=== PATIENT | female | born 1985 | race Caucasian/White ===

== ENCOUNTER 2021-04-11 08:59 | Emergency (ER) | payer OTHER, SELFPAY ==
[2021-04-11 09:05] VITALS: BP 157/101; PULSE 95; RESP 18; TEMP 36.7; O2SAT 100
[2021-04-11 09:16] LABS: Basophils Percent Auto 0.4 % (0.2-1.2); Eosinophils Absolute Auto 0.1 K/mm3 (0-0.3); Hematocrit 41.4 % (37.0-47.0); Hemoglobin 13.2 g/dL (12.0-15.0); Immature Granulocyte Absolute 0.03 K/mm3 (0.00-0.031); Immature Granulocyte Percent A 0.3 % (0-0.5); Lymphocytes Absolute Auto 2.79 K/mm3 (0.9-3.2); Mean Corpuscular HGB Conc 31.9 g/dl (32-36); Mean Corpuscular Hemoglobin 26.7 pg (26-34); Mean Corpuscular Volume 83.6 fl (80-100); Monocytes Absolute Auto 0.6 K/mm3 (0.1-0.6); Monocytes Percent Auto 5.3 % (2.6-8.5); Neutrophils Absolute Auto 7.6 K/mm3 (1.3-6.7); Platelet Count Result 260 k/mm3 (150-375); Red Blood Count 4.95 M/mm3 (4.2-5.4); Red Cell Distribution Width 12.7 % (11.5-14.5); White Blood Count 11.2 K/mm3 (4.5-10.0)
[2021-04-11] MEDS: SODIUM CHLORIDE 0.9% IV 1,000 ML 999 ML IV CONT (09:36)
[2021-04-11] MEDS: FAMOTIDINE 20 MG/2 ML VIAL IV PUSH (09:36)
--- NOTE | 2021-04-11 09:36 | ED.GENADULT ---
HPI - General Adult General Chief complaint: Abdominal Pain Stated complaint: abd pain/vomiting/diarrhea Time Seen by Provider: 04/11/21 09:03 Source: patient and RN notes reviewed Mode of arrival: ambulatory Limitations: no limitations History of Present Illness HPI narrative: Patient is a 35-year-old female who presents to emergency department for evaluation of epigastric abdominal pain with reflux patient notes she began taking Zithromax over the weekend after being diagnosed with an ear infection at urgent care believes that the pain and discomfort began after starting the Zithromax she is also using drops and notes that her left ear pain has really resolved patient denies fever or other URI symptoms patient does note some nausea and loose stools Related Data Allergies Allergy/AdvReac Type Severity Reaction Status Date / Time amoxicillin Allergy Intermediate HIVES Verified 03/06/17 22:22 Review of Systems Review of Systems: All systems reviewed & are unremarkable except as noted in HPI and below PMFSH Social History Social History (Updated 04/11/21 @ 09:40 by Jerel Sky PA-C) Smoking status: Never smoker Exam Narrative: Exam Narrative: GENERAL: Well-appearing, well-nourished, and in no acute distress. HEAD: Normocephalic, atraumatic. EYES: PERRLA and EOMI. ENT: Nares clear, no rhinorrhea or epistaxis. Mucous membranes moist. CHEST: Clear to auscultation. No respiratory distress. No wheezes rales or rhonchi HEART: Regular rate and rhythm. No murmur heard. Normal peripheral pulses. ABDOMEN: Soft, epigastric tenderness to palpation, nondistended. EXTREMITIES: Normal range of motion. No edema. SKIN: Warm, dry, no rash. NEURO: No focal deficits. Alert and oriented x3. Cranial nerves II through XII grossly intact PSYCH: Normal mood and affect. Course Course Emergency Course: Patient presented with GI upset was evaluated in the emergency department had improvement with interventions to include GI cocktail will be discharged home at this time with plan follow-up with gastroenterology and primary care also provided with reasons to return patient agrees with this plan and is felt appropriate for outpatient reevaluation Vital Signs Vital signs: Vital Signs Temperature 98.0 F 04/11/21 09:05 Pulse Rate 95 04/11/21 09:05 Respiratory Rate 18 04/11/21 09:05 Blood Pressure 157/101 H 04/11/21 09:05 Pulse Oximetry 100 04/11/21 09:05 Temperature 98.0 F 04/11/21 09:05 Pulse Rate 95 04/11/21 09:05 Respiratory Rate 18 04/11/21 09:05 Blood Pressure 157/101 H 04/11/21 09:05 Pulse Oximetry 100 04/11/21 09:05 Medical Decision Making MDM Narrative Medical decision making narrative: Patient presented with GI upset evaluated the emergency department no high risk changes in the evaluation had improvement with medications will be discharged with outpatient follow-up felt appropriate for outpatient reevaluation Vital Signs Vital Signs: Vital Signs Temperature 98.0 F 04/11/21 09:05 Pulse Rate 95 04/11/21 09:05 Respiratory Rate 18 04/11/21 09:05 Blood Pressure 157/101 H 04/11/21 09:05 Pulse Oximetry 100 04/11/21 09:05 Temperature 98.0 F 04/11/21 09:05 Pulse Rate 95 04/11/21 09:05 Respiratory Rate 18 04/11/21 09:05 Blood Pressure 157/101 H 04/11/21 09:05 Pulse Oximetry 100 04/11/21 09:05 Lab Data Result diagrams: 04/11/21 09:10 04/11/21 09:10 Labs: Lab Results 04/11/21 04/11/21 04/11/21 Range/Units 09:10 09:10 09:32 WBC 11.2 H (4.5-10.0) K/mm3 RBC 4.95 (4.2-5.4) M/mm3 Hgb 13.2 (12.0-15.0) g/dL Hct 41.4 (37.0-47.0) % MCV 83.6 (80-100) fl MCH 26.7 (26-34) pg MCHC 31.9 L (32-36) g/dl RDW 12.7 (11.5-14.5) % Plt Count 260 (150-375) k/mm3 MPV 10.0 (7.4-10.4) fl Immature Gran % (Auto) 0.3 (0-0.5) % Neut % (Auto) 68.0 (45.5-73.1) % Lymph % (Auto) 25.0 (18.3-
[2021-04-11 09:42] LABS: Alanine Aminotransferase 44 U/L (4-35); Alkaline Phosphatase 90 U/L (38-126); Anion Gap 14 mmol/L (8-16); Aspartate Amino Transferase 46 U/L (14-36); Bilirubin,Total 0.5 mg/dL (0.2-1.3); Blood Urea Nitrogen 14 mg/dL (7-17); Calcium 10.6 mg/dL (8.4-10.2); Carbon Dioxide 21 mmol/L (22-30); Chloride 105 mmol/L (98-107); Estimated CRCL calculation 104 ml/min; Estimated Glomerular Filt Rate > 60; Glucose 112 mg/dL (65-105); Lipase 74 U/L (23-300); Potassium 4.5 mmol/L (3.4-5.0); Sodium 140 mmol/L (137-145)
[2021-04-11 09:58] LABS: Add Urine Microscopic? YES; Appearance Urine Cloudy (Clear); Bilirubin Urine Negative (Negative); Blood Urine Negative (Negative); Color Urine Yellow (Yellow); Glucose Urine UA Negative (Negative); Ketones Urine Negative (Negative); Leukocyte Esterase Ur Trace LEU/UL (Negative); Mucus Urine Rare /lpf; Nitrate Urine Negative (Negative); Protein Urine 1+ mg/dL (Negative); RBC Urine 0-2 /hpf (0-2); Specific Grav Ur 1.023 (1.001-1.035); Squamous Epithelial Cell Urine Many /hpf (Few); Urobilinogen Urine Negative mg/dL (<2.0); WBC Urine 0-3 /hpf
[2021-04-11] MEDS: ONDANSETRON INJ 4 MG/2 ML VIAL IV PUSH (10:52)
[2021-04-11] MEDS: MAG HYDROX/AL HYDROX/SIMETH 30 ML UDC PO (12:08)
[2021-04-11] MEDS: LIDOCAINE HCL 2% VISC SOLN 15 ML UDC 20 ML PO (12:08)
[2021-04-11 12:45] VITALS: BP 155/78; PULSE 87; RESP 18; O2SAT 100
== END 2021-04-11 12:48 | disposition home or self-care (01) ==
PROVIDERS: Emergency Provider Emergency Medicine; PCP Internal Medicine
DX: R10.13 Epigastric pain (principal)
CPT/HCPCS: 36415; 80053; 81001; 81025; 83690; 85025; 96361; 96374; 96375; 99284; A9270; J2405; J7030

== ENCOUNTER 2021-05-03 14:14 | Outpatient (CLI) | payer OTHER, SELFPAY ==
--- NOTE | ~2021-05-03 | US_ITS ---
US abdomen complete DATE: 05/03/2021 14:43 INDICATION: Epigastric abdominal pain TECHNIQUE: Real-time imaging and Doppler analysis of the abdomen COMPARISON: None FINDINGS: No hepatic space-occupying mass lesion is evident. Normal hepatopedal portal venous flow di rection. No gallstones or gallbladder wall thickening or pericholecystic fluid collection. Negative s onographic Guerrero's sign. The common bile duct measures 4 mm, normal. No renal mass lesion or hydrone phrosis. Normal splenic size. Normal caliber of the abdominal aorta. The inferior vena cava is unremarkable. IMPRESSION: Negative Reviewed, dictated and finalized at [facility]. Reviewed, dictated and finalized at [facility]. IMPRESSION: Negative
== END 2021-05-03 14:15 ==
PROVIDERS: PCP Internal Medicine; Visit Provider Nurse Practitioner Family
DX: R10.13 Epigastric pain (principal)
CPT/HCPCS: 76700

== ENCOUNTER 2022-03-05 03:44 | Emergency (ER) | payer OTHER, SELFPAY ==
--- NOTE | ~2022-03-05 | XR_ITS ---
EXAMINATION: XR chest 2V DATE: 03/05/2022 04:47 INDICATION: Cough. TECHNIQUE: Frontal and lateral views of the chest were obtained. COMPARISON: None. FINDINGS: There is a 2.0 cm mass overlying the anterior mediastinum on the lateral view. No pneumonia , pleural effusion, or pneumothorax. The heart size is normal. IMPRESSION: 1. 2.0 cm mass overlying the anterior mediastinum on the lateral view. The differential diagnosis inc ludes thymoma, lymphoma, and germ cell tumor. Noncontrast chest CT is recommended. Reviewed, dictated and finalized at location [facility]. IMPRESSION: 1. 2.0 cm mass overlying the anterior mediastinum on the lateral view. The diff erential diagnosis includes thymoma, lymphoma, and germ cell tumor. Noncontrast chest CT is recommended.
[2022-03-05 03:49] VITALS: BP 152/91; PULSE 91; RESP 20; TEMP 36.4; O2SAT 100
[2022-03-05 04:01] VITALS: O2SAT 98
--- NOTE | 2022-03-05 04:06 | ED.SOB ---
HPI - SOB/Dyspnea General Chief Complaint: Shortness of Breath/Dyspnea Stated Complaint: SOB, cough Time Seen by Provider: 03/05/22 03:54 Source: patient History of Present Illness HPI Narrative: Patient presents with not feeling well. For symptoms feel well for approximately 1 week she is worse over the past 48 hours so she came the ER for further evaluation. She reports cough shortness of breath and chest tightness over this time. She denies any fevers nausea or vomiting. She reports sore throat and congestion as well. She reports a family member in close contact did test positive for COVID. Related Data Home Medications Medication Instructions Recorded Confirmed B-complex with vitamin C 1 tablet PO DAILY 04/19/21 04/19/21 lamotrigine 50 mg tablet,extended 50 mg PO BID 04/19/21 04/19/21 release 24 hr metformin 1,000 mg tablet 1,000 mg PO BID 04/19/21 04/19/21 Allergies Allergy/AdvReac Type Severity Reaction Status Date / Time amoxicillin Allergy Intermediate HIVES Verified 03/06/17 22:22 Review of Systems Review of Systems: CONSTITUTIONAL: Denies fever, chills, or sweats. EYES: Denies visual changes, redness, or discharge. ENT: Reports congestion and sore throat. CARDIOVASCULAR: Denies chest pain, palpitations, or edema. RESPIRATORY: Cough and shortness of breath GASTROINTESTINAL: Denies abdominal pain, nausea, vomiting, or diarrhea. GENITOURINARY: Denies dysuria or hematuria. SKIN: Denies rash or itching. MUSCULOSKELETAL: Denies back pain, joint pain, or myalgia. NEUROLOGIC: Denies headache, numbness, dizziness, or weakness. PSYCHIATRIC: Denies anxiety or depression. All systems reviewed & are unremarkable except as noted in HPI and below PMFSH Past Medical History Medical History Diarrhea Elevated liver enzymes Epigastric pain Social History Social History Smoking status: Never smoker Alcohol intake: current Drinks per week: 1 Substance use: never Exam Narrative: GENERAL: Well-appearing, well-nourished, and in no acute distress. HEAD: Normocephalic, atraumatic. EYES: PERRLA and EOMI. ENT: Nares clear, no rhinorrhea or epistaxis. Mucous membranes moist. Mild erythema of the posterior pharynx no exudates NECK: Supple. No masses. No JVD CHEST: Clear to auscultation. No respiratory distress. No wheezes rales or rhonchi HEART: Regular rate and rhythm. No murmur heard. Normal peripheral pulses. ABDOMEN: Soft, nontender, nondistended, normal active bowel sounds. EXTREMITIES: Normal range of motion. No edema. SKIN: Warm, dry, no rash. NEURO: No focal deficits. Alert and oriented x3. PSYCH: Normal mood and affect. Course Reevaluation(s) Reevaluation #1: Patient reports feeling improved results and plan reviewed with patient. Patient is comfortable outpatient plan. Date: 03/05/22 Time: 05:44 Vital Signs Vital signs: Vital Signs Temperature 36.4 C L 03/05/22 03:49 Pulse Rate 91 03/05/22 03:49 Respiratory Rate 20 03/05/22 03:49 Blood Pressure 152/91 H 03/05/22 03:49 Pulse Oximetry 100 03/05/22 03:49 Oxygen Delivery Room Air 03/05/22 03:49 Temperature 36.4 C L 03/05/22 03:49 Pulse Rate 87 03/05/22 06:22 Respiratory Rate 23 H 03/05/22 06:22 Blood Pressure 133/87 03/05/22 06:22 Pulse Oximetry 98 03/05/22 06:22 Oxygen Delivery Room Air 03/05/22 04:01 MDM - SOB/Dyspnea MDM Narrative Medical decision making narrative: H&P as above, vss, pt looks clinically well, exam reassuring, labs clinically unremarkable, img without acute process, additional labs/img considered, symptomatic relief available as needed, on reevaluation pt continues to looks clinically well. Suspect viral process, dns bacterial pneumonia, severe sepsis, severe dehydration, hypoxia. plan to tx/monitor as op w/ pcm f/u findings/plan discussed with pt, pt agree/comfortable w
[2022-03-05] MEDS: SODIUM CHLORIDE 0.9% IV 1,000 ML 999 ML IV CONT ×2 (04:22→04:47)
[2022-03-05] MEDS: ACETAMINOPHEN 500 MG TABLET 1000 MG PO (04:22)
[2022-03-05 04:29] LABS: Basophils Percent Auto 0.3 % (0.2-1.2); Eosinophils Absolute Auto 0.2 K/mm3 (0-0.3); Eosinophils Percent Auto 1.9 % (0-4.4); Hematocrit 35.6 % (37.0-47.0); Hemoglobin 11.2 g/dL (12.0-15.0); Immature Granulocyte Absolute 0.06 K/mm3 (0.00-0.031); Immature Granulocyte Percent A 0.5 % (0-0.5); Lymphocytes Absolute Auto 2.29 K/mm3 (0.9-3.2); Mean Corpuscular HGB Conc 31.5 g/dl (32-36); Mean Corpuscular Hemoglobin 25.6 pg (26-34); Mean Corpuscular Volume 81.3 fl (80-100); Mean Platelet Volume 10.2 fl (7.4-10.4); Monocytes Absolute Auto 0.8 K/mm3 (0.1-0.6); Monocytes Percent Auto 6.7 % (2.6-8.5); Neutrophils Absolute Auto 8.1 K/mm3 (1.3-6.7); Neutrophils Percent Auto 70.6 % (45.5-73.1); Platelet Count Result 276 k/mm3 (150-375); Red Blood Count 4.38 M/mm3 (4.2-5.4); Red Cell Distribution Width 13.4 % (11.5-14.5); White Blood Count 11.5 K/mm3 (4.5-10.0)
[2022-03-05 04:41] LABS: Alanine Aminotransferase 68 U/L (6-35); Albumin Level 4.3 g/dL (3.5-5.1); Alkaline Phosphatase 125 U/L (38-126); Anion Gap 8 mmol/L (8-16); Aspartate Amino Transferase 61 U/L (14-36); Bilirubin,Total 0.2 mg/dL (0.2-1.3); Blood Urea Nitrogen 12 mg/dL (7-17); Calcium 8.7 mg/dL (8.4-10.2); Carbon Dioxide 25 mmol/L (22-30); Chloride 108 mmol/L (98-107); Estimated CRCL calculation 116 ml/min; Estimated Glomerular Filt Rate > 60; Glucose 171 mg/dL (65-110); Potassium 3.7 mmol/L (3.4-5.0); Sodium 141 mmol/L (137-145)
[2022-03-05 04:46] LABS: SARS-CoV-2 RNA PCR Negative
[2022-03-05 05:05] LABS: Influenza A QL RT-PCR Negative (Negative); Influenza B QL RT-PCR Negative (Negative)
[2022-03-05 05:29] VITALS: PULSE 94; RESP 18; O2SAT 98
[2022-03-05 06:22] VITALS: BP 133/87; PULSE 87; RESP 23; O2SAT 98
== END 2022-03-05 06:21 | disposition home or self-care (01) ==
PROVIDERS: Emergency Provider Emergency Medicine; PCP Internal Medicine
DX: B34.9 Viral infection, unspecified (principal); R05.9 Cough, unspecified; R09.81 Nasal congestion; Z20.822 Contact with and (suspected) exposure to COVID-19
CPT/HCPCS: 36415; 71046; 80053; 85025; 87502; 96360; 99283; 99284; A9270; C9803; J7030; U0003; U0005

== ENCOUNTER 2022-03-21 11:40 | Outpatient (CLI) | payer OTHER, SELFPAY ==
--- NOTE | ~2022-03-21 | CT_ITS ---
EXAMINATION: CT diagnostic chest wo con DATE: 03/21/2022 12:06 INDICATION: Mediastinal mass TECHNIQUE: Computed tomography (CT) of the chest was performed without intravenous contrast. The dose -length product (DLP) was 399.32 mGy-cm. Automated exposure control and iterative reconstruction tech nique were employed. COMPARISON: Chest radiograph dated 03/05/2022 FINDINGS: There is a 1.4 cm nodule in the medial aspect of the left upper lobe which demonstrates a s mall locule of peripheral gas. There is a partially calcified enlarged right hilar lymph node. There is a 3 mm nodule of the right lower lobe on image 81. The heart size is normal. No pleural effusion o r pneumothorax. The lungs are free of focal airspace opacities. IMPRESSION: 1. 1.4 cm nodule in the medial aspect of the right upper lobe corresponding to the chest radiographic finding in question. If the patient has no known malignancy, this likely represents a benign finding . Follow-up CT in three months is recommended. Reviewed, dictated and finalized at location A. IMPRESSION: 1. 1.4 cm nodule in the medial aspect of the right upper lobe corresponding to the chest radiographic finding in question. If the patient has no known maligna ncy, this likely represents a benign finding. Follow-up CT in three months is r ecommended.
== END 2022-03-21 11:41 ==
PROVIDERS: PCP Internal Medicine; Visit Provider Internal Medicine
DX: R91.8 Other nonspecific abnormal finding of lung field (principal)
CPT/HCPCS: 71250

== ENCOUNTER 2022-04-19 13:36 | Outpatient (CLI) | payer OTHER, SELFPAY ==
--- NOTE | ~2022-04-19 | PE_ITS ---
EXAMINATION: PET skull to mid thigh DATE: 04/19/2022 15:29 INDICATION: Solitary nodule of lung TECHNIQUE: Blood glucose level was 96 mg/dL. 10.448 mCi of 18-fluorodeoxyglucose (18-FDG) was adminis tered i.v. Low dose computed tomography (CT) images were acquired from the base of the brain to the p roximal thighs for attenuation correction and anatomic localization. Positron emission tomography (PE T) images were acquired in the same distribution beginning 53 minutes after injection. Images includi ng fused PET/CT images were reconstructed in axial, coronal, and sagittal planes. Automated exposure control technique was employed. The dose-length product was 777.59mGy-cm. COMPARISON: Chest CT dated FINDINGS: Head/neck: There is symmetric increased activity in the nasal and oral cavities, palatine tonsils, parotid gland s, lingual glands, laryngeal muscles and ocular muscles without CT correlate, likely physiologic. No pathologically enlarged cervical lymphadenopathy or suspicious foci of increased FDG uptake in the vi sualized head or neck. Chest: 1.7 x 1.4 cm nodule in the anterior segment of the right upper lobe which is without evident FDG acti vity. Respiratory motion in the lungs with mild atelectasis at the basilar segments of the bilateral lower lobes. No other suspicious pulmonary nodules, pneumonia, pulmonary edema or pleural effusion. H eart size is normal. No pericardial effusion. Couple small right hilar lymph nodes without evident FD G uptake. There are subtle calcification one of the lymph nodes seen on the prior CT consistent with old granulomatous disease which is difficult to appreciate on the current study due to mild motion ar tifact. No pathologically enlarged or FDG avid thoracic lymphadenopathy. Thoracic aorta is normal in caliber. Abdomen/pelvis/proximal thighs: Physiologic renal accumulation and excretion of FDG activity in the kidneys, bladder and along portio ns of ureters. Diffuse hepatic steatosis with normal degree and heterogenous pattern of increased upt stuart throughout the liver without radiologic correlate or dominant FDG avid lesion. The gallbladder, p ancreas, spleen and bilateral adrenal glands are normal. Mild uptake scattered throughout the bowels without radiologic correlate, also likely physiologic. Normal appendix. Cystic lesions at the bilater al adnexa, the larger and more concerning with suggestion of some internal septations as on the right measuring up to 5.6 x 4.1 cm. There is also complex cystic lesion versus multiple nabothian cysts in the region of the cervix/lower uterine segment. No other abnormal foci of increased FDG uptake or pa thologically enlarged lymphadenopathy in the abdomen, pelvis or proximal thighs. Musculoskeletal: No suspicious lytic, blastic or FDG avid bone lesions. IMPRESSION: 1. No FDG uptake associated with a 2.0 x 1.4 cm right upper lobe nodule which favors a benign etiolog y most likely old granulomatous disease. Would recommend 12 month follow-up noncontrast chest CT. 2. Complex septated 5.6 cm right adnexal cyst which raises some concern for neoplasm. Additional comp ge cystic lesion versus multiple nabothian cysts in the region of the cervix/lower uterine segment. Would recommend further evaluation with pelvic ultrasound. Reviewed, dictated and finalized at location [facility]. IMPRESSION: 1. No FDG uptake associated with a 2.0 x 1.4 cm right upper lobe nodule which f avors a benign etiology most likely old granulomatous disease. Would recommend 12 month follow-up noncontrast chest CT. 2. Complex septated 5.6 cm right adnexal cyst which raises some concern for paco plasm. Additional complex cystic lesion versus multiple nabothian cysts in the region of the cervix/lower uterine segment
[2022-04-24 09:12] LABS: Glucose Point of Care 96 mg/dl (65-105)
== END 2022-04-19 13:37 | disposition home or self-care (01) ==
PROVIDERS: PCP Internal Medicine; Visit Provider Internal Medicine Pulmonary Disease
DX: R91.1 Solitary pulmonary nodule (principal); R93.89 Abnormal findings on diagnostic imaging of other specified body structures
CPT/HCPCS: 78815; A9552

== ENCOUNTER 2022-07-13 14:05 | Outpatient (CLI) | payer OTHER, SELFPAY ==
[2022-07-13 14:46] LABS: Anion Gap 13 mmol/L (8-16); Blood Urea Nitrogen 16 mg/dL (7-17); Calcium 9.5 mg/dL (8.4-10.2); Carbon Dioxide 21 mmol/L (22-30); Chloride 105 mmol/L (98-107); Estimated Glomerular Filt Rate > 60; Glucose 130 mg/dL (65-110); Potassium 4.2 mmol/L (3.4-5.0); Sodium 139 mmol/L (137-145)
--- NOTE | 2022-07-13 15:06 | ECG_ITS ---
Measurements Intervals [place] Rate: 70 P: 8 WA: 160 QRS: -11 QRSD: 99 T: -5 QT: 375 QTc: 406 Interpretive Statements SINUS RHYTHM VOLTAGE CRITERIA FOR LVH , BORDERLINE ECG NO PREVIOUS ECG AVAILABLE FOR COMPARISON Electronically Signed On 07-13-2022 15:49:49 CDT by Isak Mauro M.D.
== END 2022-07-13 14:06 | disposition home or self-care (01) ==
LOC: ANHLAB 14:08
PROVIDERS: PCP Internal Medicine; Referring Provider Obstetrics & Gynecology; Visit Provider Anesthesiology
DX: Z01.818 Encounter for other preprocedural examination (principal); N83.209 Unspecified ovarian cyst, unspecified side; E11.9 Type 2 diabetes mellitus without complications
CPT/HCPCS: 36415; 80048; 86850; 86900; 86901; 93005

== ENCOUNTER 2022-07-18 00:16 | Day surgery (SDC) | payer OTHER, SELFPAY ==
[2022-07-11 12:27] VITALS: BMI 31.9
--- NOTE | 2022-07-11 12:34 | PC.NURSE ---
Report to the Outpatient Waiting Room, entrance under the green pavilion located off [facility], at time 8:30 on date 07/18/22. OR Time: 10:30. Time changes happen often and if your time is changed the preop area will call you the afternoon before. - You and your visitor will be asked to self-screen and do not enter if you have any COVID symptoms. - We encourage only one visitor and NO visitors under age 16 are allowed at this time. Your visitor will receive communication by the phone number that is given day of service. - The patient visitor is requested to social distance or may leave the building when not with patient due to restrictions. - A mask is required within the hospital. Patients may have clear liquids (water, carbonated beverages, clear teas, apple juice) until 3 hours prior to surgery (7:30) with a maximum of 20 ounces. - No food from midnight until time of surgery Take the following medications with a SIP of water the morning of surgery: ABILIFY, LAMOTRIGINE Medications to discontinue per physician: VITAMINS/SUPPLEMENTS Date to take last dose: 07/14/22 Please no make-up, nail wolof, hairspray, perfume, deodorant, or body powder the day of surgery. No jewelry (including any body piercings) or valuables the day of surgery, leave them at home. Please take a shower or bath the night before, or the morning of, surgery with an antibacterial soap. Wear comfortable, loose fitting clothing. - Jewelry must be removed prior to entering the operating room. Rings and piercings that are not removed may be cut off. - The hospital will not accept responsibility for valuables. - Please leave all valuables, including medications, at home the day of surgery. If you are going home after surgery, a licensed customer service driver must drive you home. - NO public transportation without another adult. - We recommend that an adult stay with you for 24 hours following discharge. - We also recommend that you do not drive, make important decision, drink alcoholic beverages, or take any drugs that were not prescribed by your health care provider for at least 24 hours after your discharge time. Follow any additional instructions given to you from your surgeon. If you or anyone in your household have experienced Covid symptoms in the past week, please notify your surgeon or the nurse liaison at the phone number below for possible testing. Telephone instructions given to PT - DEBORAH BRADFORD and asked if any additional questions and then verbalized understanding. Patient advised to call surgeon office or pre surgery nurse liaison [phone] if any additional questions.
[2022-07-18] VITALS (9 sets, daily range): BP systolic 114–137; BP diastolic 76–87; PULSE 68–100; RESP 12–20; TEMP 37.2–37.3; O2SAT 12–100
--- NOTE | 2022-07-18 07:54 | P.PNAN_ITS ---
Anes - Initial Pre Proc Eval Procedure: Operation Date: 07/18/22 11:30 Proposed Procedures p Robotic Assisted Laparoscopic Right Ovarian Cystectomy - Celeste Zhong MD Date/Time: 07/18/22 07:54 Surgeon: Celeste Zhong MD Pre Op Diagnosis: right ovary cyst Patient Data Age: 36 Gender: F Height: 1.73 m Weight: 95.25 kg Allergies Allergy/AdvReac Type Severity Reaction Status Date / Time amoxicillin Allergy Intermediate HIVES Verified 07/11/22 12:25 Home Medications Medication Instructions Recorded Confirmed Type B-complex with vitamin C 1 tablet PO DAILY 04/19/21 07/11/22 History metformin 1,000 mg tablet 1,000 mg PO BID 04/19/21 07/11/22 History omeprazole 40 mg capsule,delayed See Rx Instructions .Route 01/03/22 07/11/22 Rx release .COMPLEX #90 caps aripiprazole 20 mg tablet 20 mg PO HS 07/11/22 07/11/22 History cholecalciferol (vitamin D3) 125 125 mcg PO DAILY 07/11/22 07/11/22 History mcg (5,000 unit) tablet (Vitamin D3) lamotrigine 100 mg tablet 150 mg PO BID 07/11/22 07/11/22 History Patient hx anesthesia problems: none Family hx anesthesia problems: none Results Review: All pre-operative results and documents have been reviewed as part of the pre- operative evaluation. [facility] Past Medical History Medical History (Updated 07/18/22 @ 07:57 by Jonnie Vega DO) Anxiety Bipolar disorder Depression Diabetes type 2, controlled Diarrhea Elevated liver enzymes Epigastric pain GERD (gastroesophageal reflux disease) Social History Social History Smoking status: Never smoker Alcohol intake: current Drinks per week: 1 Alcohol use details: RARE Substance use: current Substance use type: marijuana Other substance usage details: GUMMMIES Living arrangements: with family Spiritual care concerns: No Anes - Eval Final PreProcedure Day of Procedure 07/18/22 07:54 Patient weight: obese Heart: regular rate and rhythm Lungs: clear to auscultation Airway: Mallampati scale class II Neurological: alert and oriented Last oral intake: >/= 8 hours ASA classification: III Emergent: no Anesthetic plan: proceed Anesthesia type and monitoring: general ETT and standard monitoring Results Review: All pre-operative results and documents have been reviewed as part of the pre- operative evaluation. Informed Consent: The patient's anesthetic plan and its attendant risks and benefits were discussed with the patient/family/POA. Questions were solicited and answers provided to the satisfaction of the patient/family/POA.
[2022-07-18 09:57] LABS: Glucose Point of Care 156 mg/dl (65-105)
[2022-07-18] MEDS: LACTATED RINGERS 1,000 ML 30 ML IV CONT ×2 (10:00→13:04)
[2022-07-18] MEDS: KETOROLAC 15 MG/ML VIAL (*BKC) IV PUSH (10:05)
[2022-07-18] MEDS: ACETAMINOPHEN 500 MG TABLET 1000 MG PO (10:05)
--- NOTE | 2022-07-18 11:00 | WPDHPUPDATE1 ---
History and Physical Update Update Date/Time: 07/18/22 11:00 History and Physical has been reviewed, including an updated exam of the patient. There are NO changes in the patient's condition. Risks, benefits, and alternatives have been discussed and questions answered. Patient agrees to proceed with procedure.
--- NOTE | 2022-07-18 13:04 | P.OP_ITS ---
Procedure Note - Detailed Date of Procedure 07/18/22 Pre-op Diagnosis right ovary cyst Post-op Diagnosis Same Procedure Performed Robotic assisted right ovarian cystectomy. Surgeon Celeste Zhong MD Anesthesia General Indications pelvic pain Findings normal-appearing uterus tubes.. Enlarged multi cystic ovary Of the right. Small surface tissues on the surface of the left ovary. Ovaries were enlarged. Description of Procedure This patient was taken to the operating room. She was prepped and draped in the dorsal lithotomy position after induction of general anesthesia. A 8 mm skin incision was made in the left upper quadrant the abdomen. a 5 mm Visiport trocar was inserted into abdominal cavity and pneumoperitoneum was achieved. A 8 mm supraumbilical incision was made and a 8 mm trocar was inser israel into the intrauterine cavity under direct visualization of the scope. an 8 mm incision was made in the right upper quadrant of the abdomen and an 8 mm robotic trocar was placed the inter uterine cavity under direct visualization the scope. An 11 mm trocar was inserted in the right upper quadrant of the abdomen under direct visualization with the scope after an incision was made there as well. The robot was docked. Electronic orientation of the robot was performed. right ovarian cystectomy was performed using sharp and blunt dissection and cautery. This was done in [address]. A large segment of the ovary had to be resected in the midportion of the ovary. The ovaries were large. The tissue removed during the cystectomy and resection of mass was placed in endobag and taken out the left upper quadrant assist port trocar. Some surface small thin cyst were cauterized on the surface of the left ovary. The 11 mm skin incision was closed with a Nabeel-Jcarlos Endoclose In 0 Vicryl. The skin was closed with subacute or Dermabond. The patient was taken to recovery room. She was stable condition. Sponge lap and needle counts were correct x2. Estimated Blood Loss -25.0 Urine Output -125.0 Drains Yes Packing No Pathology Yes Complications No immediate complications Condition Stable Disposition Floor
[2022-07-18 13:10] LABS: Glucose Point of Care 222 mg/dl (65-105)
--- NOTE | 2022-07-18 13:16 | SUR.PHASEI ---
Notified Dr. Vega of patient's blood glucose being 222. No new orders at this time.
[2022-07-18] MEDS: fentaNYL CITRATE INJ (*CRX) 100 MCG/2 ML VIAL 25 MCG IV PUSH ×4 (13:30→13:46)
[2022-07-18] MEDS: ONDANSETRON INJ 4 MG/2 ML VIAL IV PUSH (13:49)
[2022-07-18] MEDS: oxyCODONE HCL (*CRX) 5 MG TAB IR PO (14:06)
--- NOTE | 2022-08-08 22:36 | PM.IMHP ---
H&P: HPI History of Present Illness Date/Time: 08/08/22 22:36 Chief Complaint: pelvic pain, ovarian cyst Narrative: 36-year-old female with ovarian cyst and pelvic pain. We agreed to perform laparoscopic ovarian cystectomy. She understands risks, benefits, and alternatives. She stands that injuries may occur the told in hospitalization, more surgery, and severe illness. Review of Systems Review of Systems: All systems reviewed & are unremarkable except as noted in HPI and below Constitutional: Constitutional: Denies chills, Denies fatigue, Denies fever(s) and Denies weakness Eyes: Eyes: Denies blurry vision, Denies change in vision, Denies loss of peripheral vision, Denies loss of vision, Denies other visual disturbances and Denies eye pain ENT: Denies vertigo, Denies dizziness, Denies hearing loss, Denies mouth pain, Denies nasal obstruction, Denies neck mass and Denies neck pain Cardiovascular: Cardiovascular: Denies chest pain, Denies diaphoresis, Denies syncope, Denies leg edema and Denies dyspnea Respiratory: Respiratory: Denies chest congestion, Denies cough, Denies hemoptysis, Denies dyspnea and Denies wheezing Gastrointestinal: Gastrointestinal: Denies abdominal pain, Denies constipation, Denies diarrhea, Denies nausea and Denies vomiting Genitourinary: Genitourinary: Denies hematuria, Denies change in libido, Denies nocturia, Denies genital lesions, Denies flank pain and Denies urinary urgency Musculoskeletal: Musculoskeletal: Denies abnormal gait, Denies back pain, Denies myalgias, Denies arthralgias, Denies joint swelling, Denies muscle weakness and Denies neck pain Integumentary/Breasts: Skin/Breast: Denies swelling, Denies breast pain, Denies breast mass, Denies dry skin, Denies nipple discharge, Denies unusual bruising and Denies jaundice Neurologic: Denies Neuro-related abnormal movements, Denies Abnormal speech present, Denies abnormal gait, Denies behavioral changes, Denies confusion, Denies vertigo, Denies dizziness, Denies syncope, Denies loss of vision, Denies memory loss, Denies convulsions and Denies weakness Psychiatric: Psychiatric: Denies abnormal sleep pattern, Denies behavioral changes, Denies change in libido, Denies confusion, Denies depression, Denies anhedonia and Denies memory loss Endocrine: Endocrine: Reports no additional endocrine complaints, Denies change in libido and Denies fatigue Hematologic/Lymphatic: Hematologic/Lymphatic: Reports no additional hematologic/lymphatic complaints Allergic/Immunologic: Allergic/Immunologic: Reports no additional allergic/immunologic complaints and Denies wheezing PMFSH Past Medical History Medical History (Updated 08/08/22 @ 22:38 by Celeste Zhong MD) Anxiety Bipolar disorder Depression Diabetes type 2, controlled Diarrhea Elevated liver enzymes Epigastric pain GERD (gastroesophageal reflux disease) Social History Social History Smoking status: Never smoker Alcohol intake: current Drinks per week: 1 Alcohol use details: RARE Substance use: current Substance use type: other Other substance usage details: THC gummies Lack of Transportation: No Lack of Food: Never True Current Housing: I Have Housing Concerned About Future Housing: No Difficulty Paying Gas/Electric Bills: No Difficulty Paying for Meds: No Currently Unemployed: No Education: Don't Know Difficulty w/ Childcare or Family Care: No Spiritual care concerns: No Meds Home Medications and Allergies Home Medications Medication Instructions Recorded Confirmed Type B-complex with vitamin C 1 tablet PO HS 04/19/21 07/22/22 History metformin 1,000 mg tablet 1,000 mg PO BID 04/19/21 07/22/22 History aripiprazole 20 mg tablet 20 mg PO HS 07/11/22 07/22/22 History cholecalciferol (vitamin D3) 125 125 mcg PO DAILY 07/11/22 07/22/22 History mcg (5,000 unit) tablet (Vitamin D3) lamo
== END 2022-07-18 15:05 | disposition home or self-care (01) ==
PROVIDERS: PCP Internal Medicine; Visit Provider Obstetrics & Gynecology
PROC: 8E0W4CZ Robotic Assisted Procedure of Trunk Region, Percutaneous Endoscopic Approach (ICD-10-PCS; CPT 49320; principal; 2022-07-18 11:30)
DX: C56.1 Malignant neoplasm of right ovary (principal); E11.9 Type 2 diabetes mellitus without complications; K21.9 Gastro-esophageal reflux disease without esophagitis; F41.9 Anxiety disorder, unspecified; F31.9 Bipolar disorder, unspecified; Z79.84 Long term (current) use of oral hypoglycemic drugs; F12.90 Cannabis use, unspecified, uncomplicated; E66.9 Obesity, unspecified; Z68.31 Body mass index [BMI] 31.0-31.9, adult
CPT/HCPCS: 58662; S2900; 36415; 80048; 82948; 86850; 86900; 86901; 87086; 88305; 88342; 93005; A9270; J1100; J1170; J1885; J2250; J2405; J2704; J2710; J3010; J7030; J7120

== ENCOUNTER 2022-07-22 09:06 | Inpatient (IN) | payer OTHER, SELFPAY ==
--- NOTE | ~2022-07-22 | CT_ITS ---
EXAMINATION: CT abdomen pelvis w con DATE: 07/22/2022 11:01 INDICATION: Lower abdominal pain TECHNIQUE: Computed tomography (CT) of the abdomen and pelvis was performed with 100 mL Omnipaque-350 intravenous contrast. Automated exposure control and iterative reconstruction technique were employe d. The dose-length product was 995.76 mGy-cm. COMPARISON: PET CT dated 04/19/[address] dated 03/21/2022 FINDINGS: Tiny bilateral pleural effusions. Dependent discoid atelectasis in the bilateral lower lobes. Calcifi ed right hilar lymph node consistent with old granulomatous disease. Heart size is normal. No pericar dial or pleural effusion. Liver, gallbladder, pancreas, bilateral adrenal glands and kidneys are norm al. There are a few scattered nonspecific subcentimeter hypodense/hypoenhancing lesions throughout th e spleen. Bowels including the appendix are normal with no obstruction. Bladder, anteverted uterus an d left adnexa are unremarkable. Nabothian cysts measuring up to 1.5 cm at the cervix. There is small amount of fluid along side the right ovary which demonstrates with irregular margins which may be rel ated to prior surgery or potentially small amount of hemorrhage along side the ovary. No organized ab scess or free intraperitoneal gas. There is some stranding along with a couple tiny foci of likely po stoperative gas in the abdominal wall fat along likely prior laparoscopy port tracts. IMPRESSION: 1. Heterogeneous attenuation irregular margins to the right ovary likely representing a small amount of fluid and clot related to recent right ovarian cyst surgery. 2. A few subcentimeter hypodense/hypoenhancing lesions in the spleen. Best majority splenic lesions a re benign with differential including hemangiomas, cysts or infection particularly granulomatous dise ase. Reviewed, dictated and finalized at location A. IMPRESSION: 1. Heterogeneous attenuation irregular margins to the right ovary likely repres enting a small amount of fluid and clot related to recent right ovarian cyst guerrero rgery. 2. A few subcentimeter hypodense/hypoenhancing lesions in the spleen. Best rody rity splenic lesions are benign with differential including hemangiomas, cysts or infection particularly granulomatous disease.
--- NOTE | ~2022-07-22 | US_ITS ---
EXAMINATION: US pelvic complete DATE: 07/25/2022 13:54 INDICATION: Right lower quadrant pain. Comparison:No prior studies TECHNIQUE: Multiple transabdominal sonographic images of the pelvis performed. FINDINGS: The uterus measures 12.4 x 4.5 x 5.5 cm. The endometrial complex is not visualized. The right ovary measures 4.4 x 2.6 x 3.1 cm. There is a 2 cm right ovarian cyst. The left ovary is no t visualized. There is no free fluid in the pelvis. There are no abnormal masses seen on either side. IMPRESSION: 1. Enlarged uterus. Endometrium not visualized. 2: 2 cm right ovarian cyst. Reviewed, dictated and finalized at location B.
--- NOTE | 2022-07-22 09:16 | ED.ABDPAIN ---
HPI - Abdominal Pain General Chief Complaint: Abdominal Pain Stated Complaint: post-op pain Time Seen by Provider: 07/22/22 09:16 Source: patient and family Mode of arrival: ambulatory History of Present Illness HPI narrative: Patient complaining of right abdominal pain over the last 24 hours, status post ovarian cyst surgery by Dr. Zhong on July 18, 2022, currently patient is on hydrocodone and Motrin. She reports some nausea, she denies any fever, chills, vomiting. Pain worse with movement, better laying still Related Data Home Medications Medication Instructions Recorded Confirmed B-complex with vitamin C 1 tablet PO HS 04/19/21 07/22/22 metformin 1,000 mg tablet 1,000 mg PO BID 04/19/21 07/22/22 aripiprazole 20 mg tablet 20 mg PO HS 07/11/22 07/22/22 cholecalciferol (vitamin D3) 125 125 mcg PO DAILY 07/11/22 07/22/22 mcg (5,000 unit) tablet (Vitamin D3) lamotrigine 100 mg tablet 150 mg PO BID 07/11/22 07/22/22 Allergies Allergy/AdvReac Type Severity Reaction Status Date / Time amoxicillin Allergy Intermediate HIVES Verified 07/22/22 09:37 Review of Systems Review of Systems: All systems reviewed & are unremarkable except as noted in HPI and below PMFSH Past Medical History Medical History Anxiety Bipolar disorder Depression Diabetes type 2, controlled Diarrhea Elevated liver enzymes Epigastric pain GERD (gastroesophageal reflux disease) Social History Social History Smoking status: Never smoker Alcohol intake: current Drinks per week: 1 Alcohol use details: RARE Substance use: current Substance use type: other Other substance usage details: THC gummies Spiritual care concerns: No Has the Lack of Transportation Kept You From Medical Appointments or From Getting Medications?: No Within the Past 12 Months, Were You Worried Whether Your Food Would Run Out Before You Got Money to Buy More?: Never True What is Your Housing Situation Today?: I Have Housing Are You Worried That in the Next 2 Months, You May Not Have Your Own Housing to Live In?: No Do You Have Trouble Paying Your Heating Or Electricity Bill?: No Do You Have Trouble Paying For Medicines?: No Are You Currently Unemployed and Looking for Work?: No Highest Level of Education Completed: Don't Know Do You Have Trouble With Childcare or the Care of a Family Member?: No Exam Narrative: General appearance: Well-developed, well-nourished Skin: Normal color Head: Normocephalic, nontraumatic Eyes: Clear conjunctiva ENT: Oropharynx normal, ears normal, nose normal Neck: Supple, nontender Chest and respiratory: Airway patent, no respiratory distress, no accessory muscle use Heart: Regular rate/rhythm Abdomen: Soft, diffuse tenderness, no organomegaly, quiet bowel sounds, surgical wound are clean and dry Vascular: Normal peripheral pulses, normal capillary refill. Musculoskeletal: Normal range of motion, nontender back Neurologic: Alert and oriented ?3, STRUCTURAL DESIGNER is normal as tested, no gross motor deficit Course Course Emergency Course: Work-up today showed that patient have urinary tract infection, patient also status post ovarian cyst removal. Because of the severity of pain and does not feel like can go home. Admission observation discussed with Dr. Zhong Consultations Consultation #1: Dr. Zhong Date: 07/22/22 Time: 12:31 Vital Signs Vital signs: Vital Signs Pulse Rate 80 07/22/22 09:37 Respiratory Rate 17 07/22/22 09:37 Blood Pressure 144/86 H 07/22/22 09:37 Pulse Oximetry 98 07/22/22 09:37 Temperature 36.
[2022-07-22 09:37] VITALS: BP 144/86; PULSE 80; RESP 17; O2SAT 98
[2022-07-22 09:37] LABS: Basophils Absolute Auto 0.1 K/mm3 (0.0-0.1); Basophils Percent Auto 0.6 % (0.2-1.2); Eosinophils Absolute Auto 0.1 K/mm3 (0-0.3); Eosinophils Percent Auto 0.8 % (0-4.4); Hematocrit 38.5 % (37.0-47.0); Hemoglobin 12.7 g/dL (12.0-15.0); Immature Granulocyte Percent A 0.8 % (0-0.5); Lymphocytes Absolute Auto 2.18 K/mm3 (0.9-3.2); Lymphocytes Percent Auto 18.1 % (18.3-44.2); Mean Corpuscular Volume 81.9 fl (80-100); Mean Platelet Volume 9.8 fl (7.4-10.4); Monocytes Absolute Auto 0.5 K/mm3 (0.1-0.6); Monocytes Percent Auto 4.2 % (2.6-8.5); Neutrophils Absolute Auto 9.1 K/mm3 (1.3-6.7); Neutrophils Percent Auto 75.5 % (45.5-73.1); Platelet Count Result 265 k/mm3 (150-375); Red Cell Distribution Width 12.8 % (11.5-14.5)
[2022-07-22] MEDS: SODIUM CHLORIDE 0.9% IV 1,000 ML 999 ML IV CONT (09:40)
[2022-07-22] MEDS: ONDANSETRON INJ 4 MG/2 ML VIAL IV PUSH (09:40)
[2022-07-22] MEDS: HYDROmorphone HCL INJ (*CRX) 1 MG/ML SYR 0.5 MG IV PUSH ×3 (09:40→19:21)
[2022-07-22 09:48] LABS: Alanine Aminotransferase 50 U/L (6-35); Albumin Level 4.5 g/dL (3.5-5.1); Alkaline Phosphatase 93 U/L (38-126); Anion Gap 15 mmol/L (8-16); Aspartate Amino Transferase 48 U/L (14-36); Bilirubin,Total 0.6 mg/dL (0.2-1.3); Blood Urea Nitrogen 16 mg/dL (7-17); Calcium 9.1 mg/dL (8.4-10.2); Carbon Dioxide 22 mmol/L (22-30); Chloride 104 mmol/L (98-107); Estimated CRCL calculation 136 ml/min; Estimated Glomerular Filt Rate > 60; Glucose 133 mg/dL (65-110); Lipase 40 U/L (23-300); Potassium 4.2 mmol/L (3.4-5.0); Sodium 141 mmol/L (137-145)
[2022-07-22 11:06] LABS: Add Urine Microscopic? YES; Amorphous Sediment Urine Few; Appearance Urine Cloudy (Clear); Bacteria Urine Trace /hpf; Bilirubin Urine Negative (Negative); Blood Urine Negative (Negative); Color Urine Yellow (Yellow); Glucose Urine UA Negative (Negative); Ketones Urine Negative (Negative); Leukocyte Esterase Ur 3+ LEU/UL (Negative); Mucus Urine Few /lpf; Nitrate Urine Negative (Negative); Protein Urine Negative (Negative); Specific Grav Ur 1.026 (1.001-1.035); Squamous Epithelial Cell Urine Many /hpf (Few); Urobilinogen Urine Negative mg/dL (<2.0); WBC Urine 21-30 /hpf
[2022-07-22 11:18] VITALS: BP 130/88; PULSE 80; RESP 18; O2SAT 98
[2022-07-22 12:45] VITALS: BP 120/78; PULSE 84; RESP 18; O2SAT 97
[2022-07-22 14:17] VITALS: BP 120/76; PULSE 70; RESP 18; O2SAT 98
[2022-07-22] MEDS: SODIUM CHLORIDE 0.9% IV 1,000 ML 125 ML IV CONT (15:08)
[2022-07-22 15:14] VITALS: BMI 32.0
--- NOTE | 2022-07-22 15:16 | ADMGEN ---
This patient, Chelo Randhawa, was admitted to Medical Room 341-01. Patient/family oriented to hospital policies and general routines including ID bracelet, bed and alarms, visiting hours, pain management, procedures, bathroom and other care routines, personal items, smoking policy, room service/diet, and visiting hours. Information on how to activate the Rapid Response Team has been discussed. Patient/Family are encouraged to report perceived risks to care and to ask questions if they do not understand what they are told or what they should do.
[2022-07-22 15:35] VITALS: BP 128/85; PULSE 72; RESP 18; TEMP 36.8; O2SAT 95
[2022-07-22 20:57] VITALS: BP 134/80; PULSE 80; RESP 16; TEMP 36.8; O2SAT 100
--- NOTE | 2022-07-22 22:49 | PC.NURSE ---
All documentation after 1929 on this patient was completed by Daniel Acevedo RN
[2022-07-23] MEDS: HYDROmorphone HCL INJ (*CRX) 1 MG/ML SYR 0.5 MG IV PUSH ×5 (00:16→21:40)
[2022-07-23] MEDS: SODIUM CHLORIDE 0.9% IV 1,000 ML 125 ML IV CONT ×3 (00:16→17:09)
[2022-07-23 06:00] VITALS: BP 130/78; PULSE 69; RESP 16; TEMP 36.8; O2SAT 100
[2022-07-23 08:00] VITALS: PULSE 69; RESP 16; O2SAT 100
--- NOTE | 2022-07-23 09:19 | PM.IMHP ---
H&P: HPI History of Present Illness Date/Time: 07/23/22 09:19 Chief Complaint: Abdominal Pain Narrative: This very pleasant 36-year-old female patient with significant past medical history of diabetes mellitus and non alcoholic fatty liver disease presented to the emergency room on 07/22/2022 with complaints of having abdominal pain, worse on the right lower quadrant. Patient recently underwent removal of a right-sided ovarian cyst by Dr. Zhong on July 18, 2022 and was discharged home the same day. She stated that the next day on the she began to feel bloated, crampy and had a feeling of something tugging in the right lower quadrant of the abdomen whenever she urinated. It is patient had had intermittent sweats and nausea but denied any chills, fever, vomiting or diarrhea. She presented to the emergency room yesterday at the direction of Dr. Zhong and workup was performed indicating that patient has a urinary tract infection with 3+ leukocyte esterase, 21-30 wbc's, marginally elevated white blood cell count of 12.0. She did have many squamous epithelium but given her physical exam and symptoms with history it is most likely that she does have an acute urinary tract infection. Her renal function is normal and preserved with creatinine of 0.6 and BUN of 16. CT of the abdomen and pelvis was performed that shows a heterogenous attenuation with irregular margins and of the right ovary likely representing a small amount of fluid and clot and most likely related to surgery. Patient was started on Rocephin 1 g IV Q 24 hours and IV fluids of 125 mL/hour. She is receiving Dilaudid for pain as well as Tylenol and has p.r.n. Zofran as needed. This morning on my exam patient denies any chest pain or dyspnea and she has no vomiting or diarrhea. She does continue to feel occasionally nauseated and states the pain is worse with any movement and with urinating when she feels the tugging on her right lower quadrant. She has been Afebrile overnight and her vital signs are otherwise stable. Patient will remain hospitalized receiving IV antibiotics pending urine culture results. Review of Systems Review of Systems: All systems reviewed & are unremarkable except as noted in HPI and below PMFSH Past Medical History Medical History (Updated 07/23/22 @ 09:33 by Lamar Dunbar APN-Nori) Anxiety Bipolar disorder Depression Diabetes type 2, controlled Diarrhea Elevated liver enzymes Epigastric pain GERD (gastroesophageal reflux disease) Social History Social History Smoking status: Never smoker Alcohol intake: current Drinks per week: 1 Alcohol use details: RARE Substance use: current Substance use type: other Other substance usage details: THC gummies Spiritual care concerns: No Has the Lack of Transportation Kept You From Medical Appointments or From Getting Medications?: No Within the Past 12 Months, Were You Worried Whether Your Food Would Run Out Before You Got Money to Buy More?: Never True What is Your Housing Situation Today?: I Have Housing Are You Worried That in the Next 2 Months, You May Not Have Your Own Housing to Live In?: No Do You Have Trouble Paying Your Heating Or Electricity Bill?: No Do You Have Trouble Paying For Medicines?: No Are You Currently Unemployed and Looking for Work?: No Highest Level of Education Completed: Don't Know Do You Have Trouble With Childcare or the Care of a Family Member?: No Meds Home Medications and Allergies Home Medications Medication Instructions Recorded Confirmed Type B-complex with vitamin C 1 tablet PO HS 04/19/21 07/22/22 History metformin 1,000 mg tablet 1,000 mg PO BID 04/19/21 07/22/22 History aripiprazole 20 mg tablet 20 mg PO HS 07/11/22 07/22/22 History cholecalciferol (vitamin D3) 125 125 mcg PO DAILY 07/11/22 07/22/22 History mcg (5,000 unit) tablet (Vitamin D3) lamotrigin
--- NOTE | 2022-07-23 10:23 | WPDCN ---
Assessment and Plan Assessment and plan (1) Postoperative abdominal pain: Code(s): R10.9 - Unspecified abdominal pain; G89.18 - Other acute postprocedural pain Status: Acute Plan 36-year-old female who is postop day 5. From a laparoscopic ovarian cystectomy of the right ovary. She has some postoperative pain. She looks well. She is smiling and walking around. She is getting IV antibiotics for urinary tract infections. We will continue to observe and manage her pain. I believe this is normal postoperative pain. The CT scan is supportive of a routine recovery. HPI Data of Consult Date/Time: 07/23/22 10:23 Requesting Physician: Celeste Zhong MD Primary Care Provider: Deep Allison, Consult Narrative Narrative: Chelo Randhawa is a 36 year old female She is postop day number 5 from a laparoscopic ovarian cystectomy/resection of mass of the right ovary. She has pain in this area. Is sharp pain. She rates it as severe -9/10. She denies any nausea, vomiting, fever, chills. She denies any chest pain shortness of breath. CT scan revealed a clot and some fluid around the right ovary. This is consistent with the recent surgery. Review of Systems Review of Systems: All systems reviewed & are unremarkable except as noted in HPI and below Constitutional: Constitutional: Denies chills, Denies fatigue, Denies fever(s) and Denies weakness Eyes: Eyes: Denies blurry vision, Denies change in vision, Denies loss of peripheral vision, Denies loss of vision, Denies other visual disturbances and Denies eye pain ENT: Denies vertigo, Denies dizziness, Denies hearing loss, Denies mouth pain, Denies nasal obstruction, Denies neck mass and Denies neck pain Cardiovascular: Cardiovascular: Denies chest pain, Denies diaphoresis, Denies syncope, Denies leg edema and Denies dyspnea Respiratory: Respiratory: Denies chest congestion, Denies cough, Denies hemoptysis, Denies dyspnea and Denies wheezing Gastrointestinal: Gastrointestinal: Denies abdominal pain, Denies constipation, Denies diarrhea, Denies nausea and Denies vomiting Genitourinary: Genitourinary: Denies hematuria, Denies change in libido, Denies nocturia, Denies genital lesions, Denies flank pain and Denies urinary urgency Musculoskeletal: Musculoskeletal: Denies abnormal gait, Denies back pain, Denies myalgias, Denies arthralgias, Denies joint swelling, Denies muscle weakness and Denies neck pain Integumentary/Breasts: Skin/Breast: Denies swelling, Denies breast pain, Denies breast mass, Denies dry skin, Denies nipple discharge, Denies unusual bruising and Denies jaundice Neurologic: Denies Neuro-related abnormal movements, Denies Abnormal speech present, Denies abnormal gait, Denies behavioral changes, Denies confusion, Denies vertigo, Denies dizziness, Denies syncope, Denies loss of vision, Denies memory loss, Denies convulsions and Denies weakness Psychiatric: Psychiatric: Denies abnormal sleep pattern, Denies behavioral changes, Denies change in libido, Denies confusion, Denies depression, Denies anhedonia and Denies memory loss Endocrine: Endocrine: Reports no additional endocrine complaints, Denies change in libido and Denies fatigue Hematologic/Lymphatic: Hematologic/Lymphatic: Reports no additional hematologic/lymphatic complaints Allergic/Immunologic: Allergic/Immunologic: Reports no additional allergic/immunologic complaints and Denies wheezing [facility] Past Medical History Medical History (Updated 07/23/22 @ 09:33 by LEONCIO Vences) Anxiety Bipolar disorder Depression Diabetes type 2, controlled Diarrhea Elevated liver enzymes Epigastric pain GERD (gastroesophageal reflux disease) Social History Social History Smoking status: Never smoker Alcohol intake: current Drinks per week: 1 Alcohol use details: RARE Substance use: current Substance use type: other
[2022-07-23] MEDS: PHENAZOPYRIDINE HCL 100 MG TABLET 200 MG PO ×2 (11:14→17:48)
[2022-07-23] MEDS: lamoTRIgine 50 MG TABLET 150 MG PO ×2 (11:14→20:11)
[2022-07-23] MEDS: CHOLECALCIFEROL 1,000 UNITS TABLET 5000 UNITS PO (11:14)
[2022-07-23 12:13] LABS: Glucose Point of Care 191 mg/dl (65-105)
[2022-07-23 14:00] VITALS: BP 114/62; PULSE 97; RESP 18; TEMP 36.2; O2SAT 95
[2022-07-23 17:32] LABS: Glucose Point of Care 103 mg/dl (65-105)
[2022-07-23] MEDS: metFORMIN HCL 500 MG TABLET 1000 MG PO (17:47)
[2022-07-23] MEDS: VITAMIN B COMPLEX/VIT C CAPSULE 1 EACH PO (20:12)
[2022-07-23] MEDS: ARIPiprazole 10 MG TABLET 20 MG PO (20:12)
[2022-07-23] MEDS: HYDROcodone/acetaminophen (*CRX) 5-325 MG TABLET 1 TAB PO (20:17)
[2022-07-23 20:35] LABS: Glucose Point of Care 143 mg/dl (65-105)
[2022-07-23 20:42] VITALS: BP 121/75; PULSE 92; RESP 16; TEMP 36.7; O2SAT 96
[2022-07-24] MEDS: SODIUM CHLORIDE 0.9% IV 1,000 ML 125 ML IV CONT ×4 (01:10→23:56)
[2022-07-24 05:54] VITALS: BP 128/86; PULSE 83; RESP 16; TEMP 36.7; O2SAT 97
[2022-07-24] MEDS: HYDROcodone/acetaminophen (*CRX) 5-325 MG TABLET 1 TAB PO (06:09)
[2022-07-24 07:42] LABS: Basophils Percent Auto 0.4 % (0.2-1.2); Eosinophils Absolute Auto 0.1 K/mm3 (0-0.3); Eosinophils Percent Auto 1.1 % (0-4.4); Hematocrit 34.8 % (37.0-47.0); Hemoglobin 11.2 g/dL (12.0-15.0); Immature Granulocyte Absolute 0.08 K/mm3 (0.00-0.031); Immature Granulocyte Percent A 0.9 % (0-0.5); Lymphocytes Absolute Auto 2.08 K/mm3 (0.9-3.2); Lymphocytes Percent Auto 23.3 % (18.3-44.2); Mean Corpuscular HGB Conc 32.2 g/dl (32-36); Mean Corpuscular Volume 80.9 fl (80-100); Mean Platelet Volume 10.1 fl (7.4-10.4); Monocytes Absolute Auto 0.5 K/mm3 (0.1-0.6); Monocytes Percent Auto 5.8 % (2.6-8.5); Neutrophils Absolute Auto 6.1 K/mm3 (1.3-6.7); Neutrophils Percent Auto 68.5 % (45.5-73.1); Platelet Count Result 247 k/mm3 (150-375); White Blood Count 8.9 K/mm3 (4.5-10.0)
[2022-07-24 07:51] LABS: Alanine Aminotransferase 41 U/L (6-35); Albumin Level 4.1 g/dL (3.5-5.1); Alkaline Phosphatase 84 U/L (38-126); Anion Gap 11 mmol/L (8-16); Aspartate Amino Transferase 33 U/L (14-36); Bilirubin,Total 0.5 mg/dL (0.2-1.3); Blood Urea Nitrogen 12 mg/dL (7-17); Calcium 8.7 mg/dL (8.4-10.2); Carbon Dioxide 23 mmol/L (22-30); Chloride 105 mmol/L (98-107); Estimated CRCL calculation 104 ml/min; Estimated Glomerular Filt Rate > 60; Glucose 102 mg/dL (65-110); Magnesium 2.1 mg/dL (1.6-2.3); Potassium 4.1 mmol/L (3.4-5.0); Sodium 139 mmol/L (137-145)
--- NOTE | 2022-07-24 08:03 | PM.GYNPNOP ---
SLIP COVER SEAMSTRESS - A/P Assessment and plan (1) Postoperative abdominal pain: Code(s): R10.9 - Unspecified abdominal pain; G89.18 - Other acute postprocedural pain Status: Acute Plan Postop day 6. From a laparoscopic resection of ovarian mass. Complains of increased. Umbilical pain now, looks comfortable more less. I believe this is expected postoperative pain from laparoscopy. No evidence of infection. I believe she can be managed as an outpatient. Has follow-up with diver's tender tomorrow for postop visit. Time Spent With Patient Time: Total time spent is greater than 50% in coordination of care (as documented) at patient's floor/unit and/or counseling patient: Time with patient: less than 15 minutes SLIP COVER SEAMSTRESS- PN:Subj Post-Op Subjective Date/time seen: 07/24/22 08:03 persistent pelvic and yaritza umbilical pain, she reports that is severe, no nausea, vomiting, fever, chills. No chest pain shortness of breath. Exam Const: General: cooperative, healthy appearing, comfortable and no acute distress; No confusion Orientation/consciousness: oriented to person, oriented to place, oriented to time and No confusion HENMT: Head: normal to inspection Ears: external ears normal Face/Nose/Sinus: Normal external nose present and normal facial exam Face and sinus: normal facial exam Eyes: General: appearance normal, both eyes and all related structures Neck: Neck: normal visual inspection, trachea midline and supple Resp: Auscultation: clear to auscultation bilaterally, no crackles, no rales, no rhonchi and no wheezes Cardio: Rate: regular rate Rhythm: regular rhythm Heart sounds: no click, no murmurs and no rubs GI: GI Palp: No abdominal tenderness, No Soft to palpation, No Tenderness to palpation present (GI) and No Palpable mass present Auscultation: normal bowel sounds Skin: General skin exam: normal color and no rashes or lesions noted Neuro: General: oriented to person, oriented to place, oriented to time and No confusion Speech: No Abnormal speech present Extrem: General: normal to inspection, no joint enlargement, no clubbing, cyanosis or edema, no pedal edema and no calf tenderness Psych: Appearance: grossly normal Mental Status: mental status grossly normal Speech and movement: Normal speech and movement present SLIP COVER SEAMSTRESS - PN: Obj Data Vital Signs Vital Signs: Vital Signs - 24 hr 07/23/22 14:00 07/23/22 20:42 07/23/22 20:00 Temperature 97.1 F L 98.1 F Pulse Rate 97 92 Respiratory Rate 18 16 Blood Pressure 114/62 121/75 Pulse Oximetry 95 96 Oxygen Delivery Room Air 07/24/22 05:54 Temperature 98.1 F Pulse Rate 83 Respiratory Rate 16 Blood Pressure 128/86 Pulse Oximetry 97 Oxygen Delivery Intake/Output Intake/Output: Intake & Output 07/21/22 07/22/22 07/23/22 07/24/22 23:59 23:59 23:59 23:59 Intake Total 1630 5150 1000 Output Total 300 1800 500 Balance 1330 3350 500 Meds/Results Medications: Active Medications Generic Name Dose Route Start Last Admin Trade Name Freq PRN Reason Stop Dose Admin Hydrocodone Bitart/Acetaminophen 1 tab 07/23/22 09:28 07/24/22 06:09 Hydrocodone/Acetaminophen (*Crx) 5-325 Mg Tablet PO 1 tab Q4H PRN Administration pain 4-6 Aripiprazole 20 mg 07/23/22 21:00 07/23/22 20:12 Aripiprazole 10 Mg Tablet PO 08/22/22 20:59 20 mg HS ISMAEL Administration Dextrose 12.5 gm 07/23/22 09:31 Dextrose 50% 25 Gm/50 Ml Syringe IV PUSH PRN PRN Hypoglycemia Protocol Glucagon 1 mg 07/23/22 09:31 Glucagon For Inj 1 Mg Vial IM PRN PRN Hypoglycemia Protocol Glucose 15 gm 07/23/22 09:31 Glucose Oral Gel 15 Gm Of Glucse In 37.5 Gm Tube PO PRN PRN Hypoglycemia Protocol Hydromorphone HCl 0.5 mg 07/22/22 12:33 07/23/22 21:40 Hydromorphone Hcl Inj (*Crx) 1 Mg/Ml Syr IV PUSH 0.5 mg Q4H PRN Administration Pain Rated 7-10 Ceftriaxone Sodium/Dextrose 1 gm in 50 mls @ 100 mls/hr 10
[2022-07-24 08:17] LABS: Glucose Point of Care 119 mg/dl (65-105)
[2022-07-24] MEDS: HYDROmorphone HCL INJ (*CRX) 1 MG/ML SYR 0.5 MG IV PUSH (08:32)
[2022-07-24] MEDS: CHOLECALCIFEROL 1,000 UNITS TABLET 5000 UNITS PO (08:32)
[2022-07-24] MEDS: metFORMIN HCL 500 MG TABLET 1000 MG PO ×2 (08:32→18:01)
[2022-07-24] MEDS: PHENAZOPYRIDINE HCL 100 MG TABLET 200 MG PO ×3 (08:32→18:01)
[2022-07-24] MEDS: lamoTRIgine 50 MG TABLET 150 MG PO ×2 (08:33→20:15)
--- NOTE | 2022-07-24 10:33 | PM.IMPN ---
Progress Note: A&P Assessment and Plan (1) Urinary tract infection: Code(s): N39.0 - Urinary tract infection, site not specified Status: Acute Assessment and Plan: as evidenced by urinalysis showing 3+ leukocyte esterase, 21-30 wbc's, And physical exam with complaint. Urine culture returned with signs of contamination. Therefore new 1 is ordered. Continue Rocephin 1 g Q 24 hours Pending culture. Increase fluids. Continue IV fluids for now at normal saline at 125 mL/hour. P.r.n. pain medication Of Dilaudid 0.5 mg every 6 hours as needed is ordered. In addition she will receive a basal of [place] 7.5 mg q.6 hours scheduled. She will also receive a limited amount and dose Toradol IV push q.6 hours in an effort to better control her pain. (2) Postoperative abdominal pain: Code(s): R10.9 - Unspecified abdominal pain; G89.18 - Other acute postprocedural pain Status: Acute Assessment and Plan: Status post removal of right ovarian cyst on 07/18/[address] Zhong. Believed to be a normal routine healing based upon imaging. Continue pain control monitor vital signs and labs. (3) Diabetes mellitus: Code(s): E11.9 - Type 2 diabetes mellitus without complications Status: Acute Assessment and Plan: Patient appears to have good glucose control on her current regimen with her fasting glucose this morning of 133. Continue home dose of metformin. Accu-Cheks AC and HS. Adult insulin low dose added for any additional coverage needed. Diabetic diet. Hypoglycemia protocol (4) Bipolar disorder: Code(s): F31.9 - Bipolar disorder, unspecified Status: Acute Assessment and Plan: continue Lamotrigine Time Spent With Patient Time with patient: 15 - 25 minutes Subjective Date/time seen: 07/24/22 This pt. was examined at the bedside today in interval assessment following admission for a UTI after having an ovarian cyst removed. The pt. has persisting Pulling and tightening pain in the RLQ. VETERINARY ASSISTANT is following along with medicine. She has no N/V/D and is eating well and has remained afebrile. Dr. Zhong believes she is experiencing a normal post-operative pain. Her urine cx today returned contaminated. A new one is ordered. She is tearful and still in a large amount of pain. We will be adjusting her pain medication regimen today in a hope to better control Review of Systems Review of Systems: All systems reviewed & are unremarkable except as noted in HPI and below Exam Const: General: uncomfortable (Tearful secondary to pain.) HENMT: Ears: TM's normal bilaterally Mouth: Yes moist mucous membranes Eyes: General: appearance normal, both eyes and all related structures Sclera: sclerae normal Pupils: Equal, round and reactive pupils present EOM: EOMs intact bilaterally Neck: Neck: supple and no JVD Thyroid: thyroid normal Carotids: no bruits Lymphatic: lymphadenopathy not noted Chest: Other: Nontender to palpation Resp: Effort & Inspection: normal respiratory effort Auscultation: clear to auscultation bilaterally Cardio: Rate: regular rate Rhythm: regular rhythm Heart sounds: no gallops, no murmurs and no rubs GI: Inspection: non-distended Auscultation: normal bowel sounds Other: patient has for laparotomy sites on the anterior abdomen with skin glue holding them closed. There is no erythema, edema or signs of dehiscence or acute infection around them. Skin: General skin exam: normal color, no rashes or lesions noted and no erythema Neuro: General: gait normal Cranial nerves: Yes Equal, round and reactive pupils present Speech: normal speech Motor exam (neuro): 5/5 motor strength present throughout and Normal motor muscle tone present throughout Sensory Exam: normal sensation Extrem: General: normal to inspection, no edema and no pedal edema Other: freely and equally moves all extremities well. Psych: Mental
[2022-07-24 12:08] LABS: Glucose Point of Care 108 mg/dl (65-105)
[2022-07-24] MEDS: KETOROLAC 15 MG/ML VIAL (*BKC) IV PUSH ×3 (12:19→23:52)
[2022-07-24] MEDS: HYDROcodone/acetaminophen (*CRX) 7.5-325 MG TABLET 1 TAB PO ×3 (12:20→23:53)
[2022-07-24 14:00] VITALS: BP 111/60; PULSE 88; RESP 20; TEMP 36.7; O2SAT 97
[2022-07-24] MEDS: ONDANSETRON INJ 4 MG/2 ML VIAL IV PUSH (16:44)
[2022-07-24 17:11] LABS: Glucose Point of Care 103 mg/dl (65-105)
[2022-07-24] MEDS: VITAMIN B COMPLEX/VIT C CAPSULE 1 EACH PO (20:14)
[2022-07-24] MEDS: ARIPiprazole 10 MG TABLET 20 MG PO (20:14)
[2022-07-24 21:25] LABS: Glucose Point of Care 138 mg/dl (65-105)
[2022-07-24 21:37] VITALS: BP 118/70; PULSE 78; RESP 16; TEMP 36.7; O2SAT 97
[2022-07-25] MEDS: KETOROLAC 15 MG/ML VIAL (*BKC) IV PUSH ×4 (05:54→23:58)
[2022-07-25] MEDS: HYDROcodone/acetaminophen (*CRX) 7.5-325 MG TABLET 1 TAB PO (05:54)
[2022-07-25 06:00] VITALS: BP 120/76; PULSE 80; RESP 16; TEMP 36.7; O2SAT 97
[2022-07-25 06:17] LABS: Basophils Percent Auto 0.4 % (0.2-1.2); Eosinophils Absolute Auto 0.1 K/mm3 (0-0.3); Eosinophils Percent Auto 1.1 % (0-4.4); Hematocrit 31.1 % (37.0-47.0); Hemoglobin 10.1 g/dL (12.0-15.0); Immature Granulocyte Absolute 0.06 K/mm3 (0.00-0.031); Immature Granulocyte Percent A 0.7 % (0-0.5); Lymphocytes Absolute Auto 2.27 K/mm3 (0.9-3.2); Lymphocytes Percent Auto 27.4 % (18.3-44.2); Mean Corpuscular HGB Conc 32.5 g/dl (32-36); Mean Corpuscular Hemoglobin 26.9 pg (26-34); Mean Corpuscular Volume 82.9 fl (80-100); Mean Platelet Volume 9.7 fl (7.4-10.4); Monocytes Absolute Auto 0.5 K/mm3 (0.1-0.6); Monocytes Percent Auto 5.9 % (2.6-8.5); Neutrophils Absolute Auto 5.4 K/mm3 (1.3-6.7); Neutrophils Percent Auto 64.5 % (45.5-73.1); Platelet Count Result 212 k/mm3 (150-375); Red Blood Count 3.75 M/mm3 (4.2-5.4); Red Cell Distribution Width 12.9 % (11.5-14.5); White Blood Count 8.3 K/mm3 (4.5-10.0)
[2022-07-25 06:30] LABS: Alanine Aminotransferase 35 U/L (6-35); Albumin Level 3.5 g/dL (3.5-5.1); Alkaline Phosphatase 76 U/L (38-126); Anion Gap 13 mmol/L (8-16); Aspartate Amino Transferase 29 U/L (14-36); Bilirubin,Total 0.4 mg/dL (0.2-1.3); Blood Urea Nitrogen 11 mg/dL (7-17); Calcium 8.3 mg/dL (8.4-10.2); Carbon Dioxide 21 mmol/L (22-30); Chloride 106 mmol/L (98-107); Estimated CRCL calculation 104 ml/min; Estimated Glomerular Filt Rate > 60; Glucose 91 mg/dL (65-110); Sodium 140 mmol/L (137-145)
[2022-07-25] MEDS: metFORMIN HCL 500 MG TABLET 1000 MG PO ×2 (08:23→18:05)
[2022-07-25] MEDS: CHOLECALCIFEROL 1,000 UNITS TABLET 5000 UNITS PO (08:23)
[2022-07-25] MEDS: PHENAZOPYRIDINE HCL 100 MG TABLET 200 MG PO (08:23)
[2022-07-25] MEDS: lamoTRIgine 50 MG TABLET 150 MG PO ×2 (08:24→20:24)
[2022-07-25 08:29] LABS: Glucose Point of Care 96 mg/dl (65-105)
[2022-07-25] MEDS: SODIUM CHLORIDE 0.9% IV 1,000 ML 125 ML IV CONT (10:00)
--- NOTE | 2022-07-25 11:44 | PM.IMPN ---
Progress Note: A&P Assessment and Plan (1) Urinary tract infection: Code(s): N39.0 - Urinary tract infection, site not specified Status: Acute Assessment and Plan: urinalysis showing 3+ leukocyte esterase, 21-30 wbc's, And physical exam with complaints consistent with UTI. Initial Urine culture returned with mixed luz. Repeat UA 3+ leukocytes, WBC 21-30 and many epi cells. Rocephin 1 gram Q24 hours, started in ED 07/22/22 to 07/24/22 Transition to cefdinir 300 mg PO BID x 4 days. Pyridium given x 48 hours, stop 07/25/22 (2) Postoperative abdominal pain: Code(s): R10.9 - Unspecified abdominal pain; G89.18 - Other acute postprocedural pain Status: Acute Assessment and Plan: Status post removal of right ovarian cyst on 07/18/[address] Zhong. Believed to be a normal routine healing based upon imaging. Pelvic US today with 2 cm right ovarian cyst; patient reported to have many ovarian cysts during surgery. 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 Outpatient Gynecology Oncology evaluation per OBGYN. Continue pain control- change to Percocet 10/325 mg PO Q6 hours scheduled, toradol 15 mg Q6 hours scheduled, and PRN diluadid IV for breakthrough pain. (3) Diabetes mellitus: Qualifiers: Diabetes mellitus type: type 2 Diabetes mellitus care home insulin use: without intermission coordinator use Diabetes mellitus complication status: without complication Qualified Code(s): E11.9 - Type 2 diabetes mellitus without complications Code(s): E11.9 - Type 2 diabetes mellitus without complications Status: Chronic Assessment and Plan: Chronic, stable. A1c 7.0% Continue metformin 1000 mg BID Accu-Cheks AC and HS with insulin low dose sliding scale with meals. consistent carb diet. Hypoglycemia protocol (4) Bipolar disorder: Qualifiers: Active/Remission status: remission status unspecified Qualified Code(s): F31.9 - Bipolar disorder, unspecified Code(s): F31.9 - Bipolar disorder, unspecified Status: Acute Assessment and Plan: Chronic, stable. Continue Abilify and Lamotrigine Plan CODE STATUS: FULL CODE Disposition: home when medically stable. Time Spent With Patient Time with patient: 15 - 25 minutes Subjective Date/time seen: 07/25/22 11:44 Patient found sitting up in the bed. She reports pain is worse with most movements. She denies nausea or emesis. No abnormal vaginal discharge or bleeding. She is still taking IV toradol scheduled and IV dilaudid PRN for breakthrough pain. She is taking Potter 7.5/325 mg PO scheduled as well. Review of Systems Review of Systems: All systems reviewed & are unremarkable except as noted in HPI and below Exam Narrative: General: No acute distress.? Well-developed and well-groomed adult female sitting up in bed. Mental Status/Psych: Awake, alert and oriented x3. Speech clear and appropriate. Neutral mood and affect. Pleasant and cooperative. Skin: Skin fair, warm, dry and intact without rashes. Fair turgor. HEENT: Normocephalic. Atraumatic. Conjunctivae are clear. Sclera is non-icteric. Pupils equal and round. Grossly normal hearing. Oral mucosa pink and moist. Neck: Supple. No JVD. Heart: Normal S1 and S2 regular rate and rhythm. No murmurs, gallops, or rubs auscultated. Chest: Respirations even and unlabored. Lung sounds are clear to auscultation in all lobes bilaterally without wheezes, rhonchi, or rales. Abdomen: Soft, round, and tender to palpation RLQ.? Bowel sounds present in all 4 quadrants. No guarding. No suprapubic or CVA tenderness. Extremities:? Grossly normal ROM all extremities. No edema. Radial pulses palpable. and dorsalis pedis pulses equal and palpable bilaterally. Neurological: No focal deficits. Cranial nerves 2-12 grossly intact.?Gait not tested. Objective Data Vital Signs Vital Signs: Vital Signs - 24 hr 07/24/22 14:00 07/24/22 21:37 07/25/22 06:0
[2022-07-25] MEDS: oxyCODONE/ACETAMINOPHEN (*CRX) 10-325 MG TABLET 1 TAB PO ×3 (12:42→23:58)
[2022-07-25] MEDS: CEFDINIR 300 MG CAPSULE PO ×2 (12:44→20:24)
[2022-07-25 12:47] VITALS: BP 131/7; PULSE 85; RESP 16; TEMP 36.7; O2SAT 94
--- NOTE | 2022-07-25 18:58 | PM.GYNPNOP ---
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 She had a pelvic ultrasound today that revealed a persistent right ovarian cyst. The ovary had many cysts at the time of the surgery. Pathology revealed a serous cystadenoma and a borderline tumor. Discussed those results with the patient today. She understands there will be an outpatient Gynecology Oncology consult after she leaves the hospital. T Time Spent With Patient Time: Total time spent is greater than 50% in coordination of care (as documented) at patient's floor/unit and/or counseling patient: Time with patient: less than 15 minutes TEACHER TUTOR- PN:Subj Post-Op Subjective Date/time seen: 07/25/22 18:58 Improved pain, denies nausea, vomiting, fever, chills. Reports normal bowel movements. Passing flatus. Exam Const: General: cooperative, healthy appearing, comfortable and no acute distress; No confusion Orientation/consciousness: oriented to person, oriented to place, oriented to time and No confusion HENMT: Head: normal to inspection Ears: external ears normal Face/Nose/Sinus: Normal external nose present and normal facial exam Face and sinus: normal facial exam Eyes: General: appearance normal, both eyes and all related structures Neck: Neck: normal visual inspection, trachea midline and supple Resp: Auscultation: clear to auscultation bilaterally, no crackles, no rales, no rhonchi and no wheezes Cardio: Rate: regular rate Rhythm: regular rhythm Heart sounds: no click, no murmurs and no rubs GI: GI Palp: No abdominal tenderness, No Soft to palpation, No Tenderness to palpation present (GI) and No Palpable mass present Auscultation: normal bowel sounds Skin: General skin exam: normal color and no rashes or lesions noted Neuro: General: oriented to person, oriented to place, oriented to time and No confusion Speech: No Abnormal speech present Extrem: General: normal to inspection, no joint enlargement, no clubbing, cyanosis or edema, no pedal edema and no calf tenderness Psych: Appearance: grossly normal Mental Status: mental status grossly normal Speech and movement: Normal speech and movement present TEACHER TUTOR - PN: Obj Data Vital Signs Vital Signs: Vital Signs - 24 hr 07/24/22 21:37 07/25/22 06:00 07/25/22 08:00 Temperature 98.1 F 98.1 F Pulse Rate 78 80 Respiratory Rate 16 16 Blood Pressure 118/70 120/76 Pulse Oximetry 97 97 Oxygen Delivery Room Air 07/25/22 12:47 Temperature 98.0 F Pulse Rate 85 Respiratory Rate 16 Blood Pressure 131/7 L Pulse Oximetry 94 Oxygen Delivery Intake/Output Intake/Output: Intake & Output 07/22/22 07/23/22 07/24/22 07/25/22 23:59 23:59 23:59 23:59 Intake Total 1630 5150 5270 2350 Output Total 300 1800 1400 2050 Balance 1330 3350 3870 300 Meds/Results Medications: Active Medications Generic Name Dose Route Start Last Admin Trade Name Freq PRN Reason Stop Dose Admin Aripiprazole 20 mg 07/23/22 21:00 07/24/22 20:14 Aripiprazole 10 Mg Tablet PO 08/22/22 20:59 20 mg HS ISMAEL Administration Cefdinir 300 mg 07/25/22 11:50 07/25/22 12:44 Cefdinir 300 Mg Capsule PO 07/29/22 11:49 300 mg Q12HR ISMAEL Administration Dextrose 12.5 gm 07/23/22 09:31 Dextrose 50% 25 Gm/50 Ml Syringe IV PUSH PRN PRN Hypoglycemia Protocol Glucagon 1 mg 07/23/22 09:31 Glucagon For Inj 1 Mg Vial IM PRN PRN Hypoglycemia Protocol Glucose 15 gm 07/23/22 09:31 Glucose Oral Gel 15 Gm Of Glucse In 37.5 Gm Tube PO PRN PRN Hypoglycemia Protocol Hydromorphone HCl 0.5 mg 07/22/22 12:33 07/24/22 08:32 Hydromorphone Hcl Inj (*Crx) 1 Mg/Ml Syr IV PUSH 0.5 mg Q4H PRN Administration Pain Rated 7-10 Dextrose 1,000 mls @ 100 mls/hr 07/23/22 09:31 Dextrose 5% 1,000 Ml IVPB PRN PRN Hypoglycemia Protocol
[2022-07-25 20:16] VITALS: BP 129/76; PULSE 86; RESP 18; TEMP 36.6; O2SAT 96
[2022-07-25 20:23] LABS: Glucose Point of Care 132 mg/dl (65-105)
[2022-07-25] MEDS: VITAMIN B COMPLEX/VIT C CAPSULE 1 EACH PO (20:24)
[2022-07-25] MEDS: ARIPiprazole 10 MG TABLET 20 MG PO (20:24)
[2022-07-26 05:31] VITALS: BP 107/67; PULSE 90; RESP 18; TEMP 36.5; O2SAT 96
[2022-07-26] MEDS: KETOROLAC 15 MG/ML VIAL (*BKC) IV PUSH (05:51)
[2022-07-26] MEDS: oxyCODONE/ACETAMINOPHEN (*CRX) 10-325 MG TABLET 1 TAB PO (05:51)
--- NOTE | 2022-07-26 08:09 | PM.GYNPNOP ---
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 Time Spent With Patient Time: Total time spent is greater than 50% in coordination of care (as documented) at patient's floor/unit and/or counseling patient: Time with patient: less than 15 minutes JOB DEVELOPER [employer]- PN:Subj Post-Op Subjective Date/time seen: 07/26/22 08:09 improved pain, tolerating p.o., afebrile, no nausea vomiting chills Exam Const: General: cooperative, healthy appearing, comfortable and no acute distress; No confusion Orientation/consciousness: oriented to person, oriented to place, oriented to time and No confusion HENMT: Head: normal to inspection Ears: external ears normal Face/Nose/Sinus: Normal external nose present and normal facial exam Face and sinus: normal facial exam Eyes: General: appearance normal, both eyes and all related structures Neck: Neck: normal visual inspection, trachea midline and supple Resp: Auscultation: clear to auscultation bilaterally, no crackles, no rales, no rhonchi and no wheezes Cardio: Rate: regular rate Rhythm: regular rhythm Heart sounds: no click, no murmurs and no rubs GI: GI Palp: No abdominal tenderness, No Soft to palpation, No Tenderness to palpation present (GI) and No Palpable mass present Auscultation: normal bowel sounds Skin: General skin exam: normal color and no rashes or lesions noted Neuro: General: oriented to person, oriented to place, oriented to time and No confusion Speech: No Abnormal speech present Extrem: General: normal to inspection, no joint enlargement, no clubbing, cyanosis or edema, no pedal edema and no calf tenderness Psych: Appearance: grossly normal Mental Status: mental status grossly normal Speech and movement: Normal speech and movement present JOB DEVELOPER [employer] - PN: Obj Data Vital Signs Vital Signs: Vital Signs - 24 hr 07/25/22 12:47 07/25/22 20:16 07/26/22 05:31 Temperature 98.0 F 98 F 97.7 F Pulse Rate 85 86 90 Respiratory Rate 16 18 18 Blood Pressure 131/7 L 129/76 107/67 Pulse Oximetry 94 96 96 Intake/Output Intake/Output: Intake & Output 07/23/22 07/24/22 07/25/22 07/26/22 23:59 23:59 23:59 23:59 Intake Total 5150 5270 2350 200 Output Total 1800 1400 2450 900 Balance 3350 3870 -100 -700 Meds/Results Medications: Active Medications Generic Name Dose Route Start Last Admin Trade Name Freq PRN Reason Stop Dose Admin Aripiprazole 20 mg 07/23/22 21:00 07/25/22 20:24 Aripiprazole 10 Mg Tablet PO 08/22/22 20:59 20 mg HS ISMAEL Administration Cefdinir 300 mg 07/25/22 11:50 07/25/22 20:24 Cefdinir 300 Mg Capsule PO 07/29/22 11:49 300 mg Q12HR ISMAEL Administration Dextrose 12.5 gm 07/23/22 09:31 Dextrose 50% 25 Gm/50 Ml Syringe IV PUSH PRN PRN Hypoglycemia Protocol Glucagon 1 mg 07/23/22 09:31 Glucagon For Inj 1 Mg Vial IM PRN PRN Hypoglycemia Protocol Glucose 15 gm 07/23/22 09:31 Glucose Oral Gel 15 Gm Of Glucse In 37.5 Gm Tube PO PRN PRN Hypoglycemia Protocol Hydromorphone HCl 0.5 mg 07/22/22 12:33 07/24/22 08:32 Hydromorphone Hcl Inj (*Crx) 1 Mg/Ml Syr IV PUSH 0.5 mg Q4H PRN Administration Pain Rated 7-10 Dextrose 1,000 mls @ 100 mls/hr 07/23/22 09:31 Dextrose 5% 1,000 Ml IVPB PRN PRN Hypoglycemia Protocol Insulin Aspart 2 - 5 units 07/23/22 12:00 07/25/22 16:55 Insulin Aspart (*Bkc) 100 Units/Ml SUB-Q Not Given TIDWM ISMAEL Protocol Ketorolac Tromethamine 15 mg 07/24/22 12:00 07/26/22 05:51 Ketorolac 15 Mg/Ml Vial (*Bkc) IV PUSH 15 mg Q6HR ISMAEL Administration Lamotrigine 150 mg 07/23/22 09:40 07/25/22 20:24 Lamotrigine 50 Mg Tablet PO 150 mg Q12HR ISMAEL Administration Metformin HCl 1,000 mg 07/23/22 17:00 07/25/22 18:05 Metformin Hcl 500 Mg Tablet PO 1,000 m
--- NOTE | 2022-07-26 08:11 | PM.DS ---
DS: Admitting Diagnosis Discharge Date July 26 2022 Admitting Diagnosis postoperative pain DS: Discharge Diagnosis Discharge Diagnosis (1) Post-op pain: Code(s): G89.18 - Other acute postprocedural pain Status: Acute DS: Summary Hospital Course Hospital Course: 36-year-old female, postop, ovarian cystectomy, laparoscopic, admitted for postoperative pain. She had clot and some fluid around the ovary. Ovary contains borderline mucinous tumor. She was observed for several days, pain was managed, she is noticed marked improvement today and would like to be discharged. She will be discharged home oral pain medication. Time Spent with Patient Time attestation: Total time spent providing and/or coordinating discharge services: DS: Data Data Completed and Pending Labs on day of discharge: Labs from last 24 hours 07/25/22 07/25/22 20:19 08:22 POC Capillary Glucose 132 H 96 Discharge Plan Discharge Consulting providers: Lamar Dunbar Discharging Clinician: Celeste Zhong Patient Disposition: Home, Self-Care Activity: pelvic rest Diet: regular Patient Instructions: Antibiotic Form Stand Alone Forms: General Discharge Information Follow-up/Referrals: Celeste Zhong MD [Physician] - Discharge Medications: New hydrocodone-acetaminophen 5-325 mg tablet 1 tablet PO Q4H PRN (Reason: pain) Qty: 25 0RF Continued metformin 1,000 mg tablet 1,000 mg PO BID B-complex with vitamin C Tablet 1 tablet PO HS lamotrigine 100 mg tablet 150 mg PO BID aripiprazole 20 mg Tablet 20 mg PO HS cholecalciferol (vitamin D3) [Vitamin D3] 125 mcg (5,000 unit) Tablet 125 mcg PO DAILY hydrocodone-acetaminophen 5-325 mg tablet 1 tablet PO Q4H PRN (Reason: pain) Qty: 15 0RF Date of admission: 07/24/22 11:04 Primary Care Provider: Estefany,Deep Shah Admitting Provider: Celeste Zhong Attending physician on admission: Celeste Zhong Condition: Stable
[2022-07-26 08:13] LABS: Glucose Point of Care 102 mg/dl (65-105)
[2022-07-26] MEDS: metFORMIN HCL 500 MG TABLET 1000 MG PO (08:45)
[2022-07-26] MEDS: CHOLECALCIFEROL 1,000 UNITS TABLET 5000 UNITS PO (08:45)
[2022-07-26] MEDS: CEFDINIR 300 MG CAPSULE PO (08:45)
[2022-07-26] MEDS: lamoTRIgine 50 MG TABLET 150 MG PO (08:46)
== END 2022-07-26 11:10 | disposition home or self-care (01) | DRG 690 ==
LOC: ANHED 12:31 → ANH3MED 07-23 00:18
PROVIDERS: Nurse Practitioner Adult Health; Admitting Provider Obstetrics & Gynecology; Emergency Provider Emergency Medicine; PCP Internal Medicine; Visit Provider Obstetrics & Gynecology
DX: N39.0 Urinary tract infection, site not specified (principal); G89.18 Other acute postprocedural pain; N83.201 Unspecified ovarian cyst, right side; E11.9 Type 2 diabetes mellitus without complications; K21.9 Gastro-esophageal reflux disease without esophagitis; F31.9 Bipolar disorder, unspecified; F41.9 Anxiety disorder, unspecified; K70.0 Alcoholic fatty liver; Z79.84 Long term (current) use of oral hypoglycemic drugs
CPT/HCPCS: 36415; 74177; 76856; 80053; 81001; 81025; 82948; 83036; 83690; 83735; 85025; 87086; 87088; 96361; 96365; 96366; 96367; 96374; 96375; 96376; 99285; A9270; G0378; J0131; J0696; J1170; J1885; J2405; J7030; Q9967

== ENCOUNTER 2023-01-11 15:42 | Outpatient (CLI) | payer OTHER, SELFPAY ==
--- NOTE | ~2023-01-11 | US_ITS ---
EXAMINATION:US venous doppler LE LT INDICATION:Left leg pain TECHNIQUE: Multiple grayscale, color flow and Doppler images of the left lower extremity deep venous systems were obtained and reviewed. COMPARISON:No prior studies for comparison. FINDINGS: The common femoral, superficial femoral and popliteal veins demonstrate normal respiratory variation, augmentation and compressibility. Color flow is also seen within the posterior tibial, pe roneal, greater saphenous and profunda veins. IMPRESSION: 1: No lower extremity deep venous thrombosis. Reviewed, dictated and finalized at location B.
== END 2023-01-11 15:43 ==
PROVIDERS: PCP Internal Medicine; Visit Provider Internal Medicine
DX: M79.605 Pain in left leg (principal)
CPT/HCPCS: 93971

== ENCOUNTER 2023-02-06 08:00 | Outpatient (CLI) | payer OTHER, SELFPAY ==
--- NOTE | ~2023-02-06 | US_ITS ---
US art doppler w press LE BI INDICATION: Lower extremity pain TECHNIQUE: Segmental pressures and plethysmographic and Doppler waveforms of the brachial and lower e xtremity arteries were obtained. COMPARISON: None. FINDINGS: Right and left brachial artery pressures of 118 mm Hg and 125 mm Hg, respectively, are concordant (no rmal difference <= 30 mmHg). The right ankle-brachial index (RANJIT) is 1.09 (normal >= 0.9-1.0). The right great toe-brachial index (TBI) is 0.6 (normal >= 0.60). The left RANJIT is 1.06. The left TBI is 0.52. IMPRESSION: 1. Normal bilateral ankle-brachial indices. 2: Mildly decreased left toe brachial index measuring 0.52, consistent with peripheral arterial dise ase. Reviewed, dictated and finalized at location B. IMPRESSION: 1. Normal bilateral ankle-brachial indices. 2: Mildly decreased left toe brachial index measuring 0.52, consistent with pe ripheral arterial disease.
== END 2023-02-06 08:01 | disposition home or self-care (01) ==
PROVIDERS: PCP Internal Medicine; Visit Provider Internal Medicine
DX: M79.605 Pain in left leg (principal)
CPT/HCPCS: 93923

== ENCOUNTER 2023-04-03 09:50 | Outpatient (CLI) | payer OTHER, SELFPAY ==
--- NOTE | ~2023-04-03 | US_ITS ---
EXAMINATION: US thyroid DATE: 04/03/2023 10:19 INDICATION: Goiter TECHNIQUE: Multiple ultrasound images of the thyroid were obtained. COMPARISON: None. FINDINGS: The right thyroid lobe measures 5.4 x 1.5 x 1.7 cm. The left thyroid lobe measures 5.3 x 1.2 x 1.8 cm . The thyroid isthmus measures 4 mm in thickness. 1.0 cm wider than tall solid hypoechoic nodule with smooth margins and without echogenic foci at the inferior left thyroid. (TI-RADS 4, moderately suspi cious , FNA if >=1.5 cm, annual followup is >=1 cm). There is normal echotexture, echogenicity and va scular flow throughout the thyroid gland. Normal-sized left jugular chain lymph notes, the largest me asuring 7 mm in maximal short axis diameter. IMPRESSION: 1. 1 cm TI RADS 4 left thyroid nodule for which one-year follow-up ultrasound would be recommended. Reviewed, dictated and finalized at location B. IMPRESSION: 1. 1 cm TI RADS 4 left thyroid nodule for which one-year follow-up ultrasound w ould be recommended.
== END 2023-04-03 09:51 | disposition home or self-care (01) ==
PROVIDERS: PCP Internal Medicine; Visit Provider Internal Medicine Endocrinology, Diabetes & Metabolism
DX: E04.9 Nontoxic goiter, unspecified (principal)
CPT/HCPCS: 76536

== ENCOUNTER 2023-04-17 12:17 | Outpatient (CLI) | payer OTHER, SELFPAY ==
--- NOTE | 2023-04-17 14:30 | NEURO_ITS ---
Impression: # Complains of left foot going numb intermittently. # Normal Nerve Conduction Study. # Needle/EMG exam revealed neurogenic changes in left EDB. # Question higher involvement. Nerve Conduction Studies Anti Sensory Summary Table Stim Site NR Peak (ms) P-T Amp (?V) Site1 Site2 Delta-P (ms) Dist (cm) Tate (m/s) Left Sup Fibular Anti Sensory (Ant Lat Mall) 14 cm 3.2 21.6 14 cm Ant Lat Mall 3.2 16.0 50 Left Sural Anti Sensory (Lat Mall) Calf 3.3 11.5 Calf Lat Mall 3.3 16.0 48 Motor Summary Table Stim Site NR Onset (ms) O-P Amp (mV) Site1 Site2 Delta-0 (ms) Dist (cm) Tate (m/s) Left Peroneal Motor (Vastus Med) Ankle 4.8 2.4 Popit Ankle 8.4 41.0 49 Popit 13.2 1.8 Left Tibial Motor (Abd Melendez Brev) Ankle 5.0 2.2 Knee Ankle 9.4 44.0 47 Knee 14.4 2.9 F Wave Studies NR F-Lat (ms) L-R F-Lat (ms) Left Peroneal (Mrkrs) (EDB) 57.19 Left Tibial (Mrkrs) (Abd Hallucis) 56.14 EMG Side Muscle Nerve Root Ins Act Fibs Amp Dur Recrt Comment Left AntTibialis Dp Br Fibular L4-5 Nml Nml Nml Nml Nml Left Gastroc Tibial S1-2 Nml Nml Nml Nml Nml Left Fibularis Long Sup Br Fibular L5-S1 Nml Nml Nml Nml Nml Left Flex Dig Long Tibial L5-S2 Nml Nml Nml >12ms Reduced Left Ext Dig Brev Dp Br Fibular L5, S1 Nml Nml Nml Nml Nml MTDD
== END 2023-04-17 12:18 | disposition home or self-care (01) ==
LOC: ANHNEURO 12:18
PROVIDERS: PCP Internal Medicine; Visit Provider Internal Medicine
DX: M79.605 Pain in left leg (principal)
CPT/HCPCS: 95886; 95908

== ENCOUNTER 2024-05-04 15:40 | Outpatient (CLI) | payer OTHER, SELFPAY ==
--- NOTE | ~2024-05-04 | US_ITS ---
EXAMINATION: US thyroid DATE: 05/04/2024 15:50 INDICATION: Nontoxic single thyroid nodule. TECHNIQUE: Multiple ultrasound images of the thyroid were obtained. COMPARISON: Ultrasound 04/03/2023 FINDINGS: The right thyroid lobe measures 5.8 x 1.8 x 1.8 cm. The left thyroid lobe measures 4.8 x 1.7 x 1.6 c m. In the left thyroid lobe, there is a 9 mm solid, hypoechoic, wider than tall nodule with smooth m argin without echogenic foci (TI-RADS TR4). IMPRESSION: 1. Small thyroid nodule, likely not clinically significant. No follow-up is needed. Reviewed, dictated and finalized at location A. IMPRESSION: 1. Small thyroid nodule, likely not clinically significant. No follow-up is nee ded.
== END 2024-05-04 15:41 ==
LOC: GOSHIMG 15:41
PROVIDERS: PCP Internal Medicine; Visit Provider Internal Medicine Endocrinology, Diabetes & Metabolism
DX: E04.1 Nontoxic single thyroid nodule (principal)
CPT/HCPCS: 76536

== ENCOUNTER 2024-05-11 00:45 | Emergency (ER) | payer OTHER, SELFPAY ==
[2024-05-11 00:48] VITALS: BP 186/97; PULSE 98; RESP 20; TEMP 37; O2SAT 100
--- NOTE | 2024-05-11 02:00 | ED.GENADULT ---
HPI - General Adult General Chief complaint: Unspecified Stated complaint: tremors Time Seen by Provider: 05/11/24 01:54 History of Present Illness HPI narrative: Patient is on lumateperone, yesterday she started having some involuntary muscle twitches, and today is having involuntary movements to her face and arm and she is concerned about possible medication side effect. Related Data Home Medications Medication Instructions Recorded Confirmed B-complex with vitamin C 1 tablet PO HS 04/19/21 05/06/24 lamotrigine 100 mg tablet 150 mg PO BID 07/11/22 05/06/24 lumateperone 42 mg capsule mg PO QHS 05/06/24 05/06/24 (Caplyta) omeprazole 40 mg capsule,delayed mg PO DAILY PRN 05/06/24 05/06/24 release sertraline 25 mg tablet 50 mg PO QHS 05/06/24 05/06/24 Allergies Allergy/AdvReac Type Severity Reaction Status Date / Time amoxicillin Allergy Intermediate HIVES Verified 05/06/24 08:28 Review of Systems Review of Systems: All systems reviewed & are unremarkable except as noted in HPI and below PMFSH Past Medical History Medical History Anxiety Bipolar disorder Depression Diabetes type 2, controlled Diarrhea Elevated liver enzymes Epigastric pain GERD (gastroesophageal reflux disease) Social History Social History Smoking status: Never smoker Alcohol intake: current Drinks per week: 1 Alcohol use details: RARE Substance use: current Substance use type: other Other substance usage details: THC gummies Lack of Transportation: No Lack of Food: Never True Current Housing: I Have Housing Concerned About Future Housing: No Difficulty Paying Gas/Electric Bills: No Difficulty Paying for Meds: No Currently Unemployed: No Education: Don't Know Difficulty w/ Childcare or Family Care: No Living arrangements: with family Spiritual care concerns: No Exam Narrative: EXAMINATION OF ORGAN SYSTEMS/BODY AREAS: Constitutional: Vital signs per nursing GENERAL: Slightly anxious patient who is occasionally twitching in the bed HEAD: Normal with no signs of head trauma. EYES: EOMI, conjunctiva normal ENT: Occasional grimacing LUNGS: Nonlabored breathing. HEART: [Regular rate and rhythm] ABD: No distension EXT: Occasional spasming of the left arm SKIN: [No rashes or lesions.] NEURO: [Alert and oriented x 3.] PSYCH: Anxious affect Course Vital Signs Vital signs: Vital Signs Temperature 98.6 F 05/11/24 00:48 Pulse Rate 98 05/11/24 00:48 Respiratory Rate 20 05/11/24 00:48 Blood Pressure 186/97 H 05/11/24 00:48 Pulse Oximetry 100 05/11/24 00:48 Oxygen Delivery Room Air 05/11/24 00:48 Temperature 98.6 F 05/11/24 00:48 Pulse Rate 71 05/11/24 04:37 Respiratory Rate 19 05/11/24 04:37 Blood Pressure 127/98 H 05/11/24 04:37 Pulse Oximetry 98 05/11/24 04:37 Oxygen Delivery Room Air 05/11/24 00:48 Medical Decision Making MDM Narrative Medical decision making narrative: Patient presents with some involuntary muscle twitching, mostly to her face and left arm. Denies any recent injuries or concern for tetanus, she is concerned that she may have tardive dyskinesia, she has only been on the antipsychotic medication for several months so I feel this is less likely, I will try a dose of benztropine and re-evaluate. After this medication she no improvement in her symptoms, I did defer give a small dose of Ativan, at which point she states that she feels much better, her left arm is less twitchy, I did give a dose of Valium and on re-evaluation she states she feels much better, she does has occasional grimacing of her face. I did offer to consult Neurology here but patient would rather go home at this time and call her psychiatrist in the next few hours. I feel this is quite reasonable, she is well-appearing here, in no distress, does n
[2024-05-11] MEDS: BENZTROPINE MESYLATE INJ 1 MG/ML AMPUL IM (02:13)
[2024-05-11] MEDS: LORazepam INJ (*CRX) 2 MG/ML VIAL 1 MG IM (02:47)
[2024-05-11 02:51] VITALS: BP 148/86; PULSE 62; RESP 18; O2SAT 98
[2024-05-11] MEDS: diazePAM INJ (*CRX) 10 MG/2 ML SYRINGE 5 MG IM (03:20)
[2024-05-11 04:37] VITALS: BP 127/98; PULSE 71; RESP 19; O2SAT 98
== END 2024-05-11 04:40 | disposition home or self-care (01) ==
PROVIDERS: Emergency Provider Emergency Medicine; PCP Internal Medicine
DX: M62.838 Other muscle spasm (principal); E11.9 Type 2 diabetes mellitus without complications; K21.9 Gastro-esophageal reflux disease without esophagitis; F41.9 Anxiety disorder, unspecified; F31.9 Bipolar disorder, unspecified; Z79.84 Long term (current) use of oral hypoglycemic drugs; Z79.899 Other long term (current) drug therapy
CPT/HCPCS: 96372; 99284; J0515; J1200; J2060; J3360

== ENCOUNTER 2024-05-11 12:26 | Emergency (ER) | payer OTHER, SELFPAY ==
[2024-05-11] VITALS (31 sets, daily range): BP systolic 130–158; BP diastolic 54–95; PULSE 64–102; RESP 11–29; TEMP 36.8; O2SAT 96–100
--- NOTE | 2024-05-11 14:38 | PC.NURSE ---
Pt has not been seen, pt asking why. informed of reasons for delay, assured the pt that EDP will be in shortly
--- NOTE | 2024-05-11 16:18 | ED.GENADULT ---
HPI - General Adult General Chief complaint: Unspecified Stated complaint: involuntary arm movements Time Seen by Provider: 05/11/24 16:09 History of Present Illness HPI narrative: Pt presents again today with involuntary twitching of facial muscles. Pt seen here last night for similar complaints. Pt has been on lumateperone for awhile and is concerned she is having reaction. Pt received cogentin last night without relief. Pt did get some releif from ativan last night. Related Data Home Medications Medication Instructions Recorded Confirmed B-complex with vitamin C 1 tablet PO HS 04/19/21 05/06/24 lamotrigine 100 mg tablet 150 mg PO BID 07/11/22 05/06/24 lumateperone 42 mg capsule mg PO QHS 05/06/24 05/06/24 (Caplyta) omeprazole 40 mg capsule,delayed mg PO DAILY PRN 05/06/24 05/06/24 release sertraline 25 mg tablet 50 mg PO QHS 05/06/24 05/06/24 Allergies Allergy/AdvReac Type Severity Reaction Status Date / Time amoxicillin Allergy Intermediate HIVES Verified 05/06/24 08:28 Review of Systems Review of Systems: All systems reviewed & are unremarkable except as noted in HPI and below PMFSH Past Medical History Medical History Anxiety Bipolar disorder Depression Diabetes type 2, controlled Diarrhea Elevated liver enzymes Epigastric pain GERD (gastroesophageal reflux disease) Social History Social History Smoking status: Never smoker Alcohol intake: current Drinks per week: 1 Alcohol use details: RARE Substance use: current Substance use type: other Other substance usage details: THC gummies Lack of Transportation: No Lack of Food: Never True Current Housing: I Have Housing Concerned About Future Housing: No Difficulty Paying Gas/Electric Bills: No Difficulty Paying for Meds: No Currently Unemployed: No Education: Don't Know Difficulty w/ Childcare or Family Care: No Living arrangements: with family Spiritual care concerns: No Exam Const: General: no acute distress and alert Nutritional Appearance: average body habitus and well nourished Orientation/consciousness: patient oriented x3 Limitations: no limitations HENMT: Other: facial muscle twitching oral muscles Neck: Neck: normal visual inspection and full ROM Resp: Effort & Inspection: normal respiratory effort Auscultation: clear to auscultation bilaterally Cardio: Rate: regular rate Rhythm: regular rhythm GI: Auscultation: normal bowel sounds Skin: General skin exam: normal color Lesions: no lesions Rashes: no rashes Neuro: General: patient oriented x3 Cranial nerves: Yes CN's II-XII intact bilaterally, Yes Nystagmus not present, Yes Normal facial strength present, Yes facial symmetry and Yes Other cranial nerve findings present (muscle twitching of facial muscles around mouth) Speech: normal speech Extrem: General: normal to inspection and full ROM Psych: Appearance: grossly normal Mental Status: mental status grossly normal Speech and movement: Normal speech and movement present Affect: Anxious affect present Attitude: cooperative Course Vital Signs Vital signs: Vital Signs Pulse Rate 87 05/11/24 12:36 Respiratory Rate 17 05/11/24 12:36 Pulse Oximetry 98 05/11/24 12:36 Temperature 98.2 F 05/11/24 12:43 Pulse Rate 66 05/11/24 17:45 Respiratory Rate 16 05/11/24 17:45 Blood Pressure 138/90 05/11/24 17:45 Pulse Oximetry 98 05/11/24 17:45 Medical Decision Making MDM Narrative Medical decision making narrative: Pt seen here last night for involuntary muscle spasm, treated with cogentin without much relief and then ativan which helped. Pt back again for same and very anxious. Will ry benadryl and ativan IM. Pt feels better right after ativan. will send home on a few po until she sees her psychiatrist this week. Vital Signs Renetta
[2024-05-11] MEDS: LORazepam INJ (*CRX) 2 MG/ML VIAL 1 MG IM (16:48)
[2024-05-11] MEDS: diphenhydrAMINE HCl INJ 50 MG/ML VIAL IM (16:48)
--- NOTE | 2024-05-11 17:02 | PC.NURSE ---
pt wanting to leave, EDP made aware, NNO
== END 2024-05-11 17:55 | disposition home or self-care (01) ==
PROVIDERS: Emergency Provider Emergency Medicine; PCP Internal Medicine
DX: M62.48 Contracture of muscle, other site (principal); E11.9 Type 2 diabetes mellitus without complications; K21.9 Gastro-esophageal reflux disease without esophagitis; F41.9 Anxiety disorder, unspecified; F31.9 Bipolar disorder, unspecified; Z79.84 Long term (current) use of oral hypoglycemic drugs; Z79.899 Other long term (current) drug therapy
CPT/HCPCS: 96372; 99284; J1200; J2060

== ENCOUNTER 2024-08-31 08:38 | Emergency (ER) | payer OTHER, SELFPAY ==
--- NOTE | ~2024-08-31 | CT_ITS ---
EXAMINATION: CT abdomen pelvis w con DATE: 08/31/2024 11:23 INDICATION: Flank and abdominal pain. Ovarian cancer. TECHNIQUE: Computed tomography (CT) of the abdomen and pelvis was performed with 100 mL Omnipaque 350 intravenous contrast. Automated exposure control and iterative reconstruction technique were employe d. The dose-length product was 642.96 mGy-cm. COMPARISON: CT abdomen and pelvis 07/22/2022 FINDINGS: The visualized portions of the lung bases demonstrate mild atelectasis. No pleural effusion . The heart size is normal. No pericardial effusion. There is diffuse hepatic steatosis. The gallblad aarti is normal. Again seen are multiple hypodense masses in the spleen measuring up to 9 mm, likely gr anulomatous disease. The pancreas, adrenal glands, and kidneys are normal. There are nabothian cysts in the cervix. There is a 2.9 cm dominant follicle in right ovary. There are no dilated loops of [place] l. The appendix is normal. There are no pathologically enlarged lymph nodes. There is no free intrape ritoneal fluid. There is mild lumbar spondylosis. IMPRESSION: 1. No etiology for the patient's symptoms. Reviewed, dictated and finalized at location A. RD TOLL OPERATOR
[2024-08-31 08:47] VITALS: BP 141/90; PULSE 69; PULSE 97; RESP 16; RESP 18; TEMP 36.6; TEMP 37.1; O2SAT 97; O2SAT 98
[2024-08-31 09:46] VITALS: BP 135/74; PULSE 67; RESP 16; O2SAT 92
[2024-08-31] MEDS: SODIUM CHLORIDE 0.9% IV 1,000 ML 999 ML IV CONT (10:12)
[2024-08-31] MEDS: FAMOTIDINE 20 MG/2 ML VIAL IV PUSH (10:13)
[2024-08-31] MEDS: ONDANSETRON INJ 4 MG/2 ML VIAL IV PUSH (10:13)
[2024-08-31] MEDS: KETOROLAC 30 MG/ML VIAL (*BKC) IV PUSH (10:13)
--- NOTE | 2024-08-31 10:24 | ED.ABDPAIN ---
HPI - Abdominal Pain General Chief Complaint: Abdominal Pain Stated Complaint: right side flank pain Time Seen by Provider: 08/31/24 09:05 History of Present Illness HPI narrative: Patient is a 38-year-old female who presents to the ER with complaints of back, right flank, and abdominal pain. She reports pain started on and her lower back. It has now radiated on to her right flank and increases when she takes a deep breath. Patient endorses increased nausea. She is due to get her menstrual cycle on Saturday. Patient endorses a history of ovarian cysts, type 2 diabetes, and an ovarian mass that had to be removed in 2021 for which she is followed by Oncology. Patient also endorses she had blood in her urine approximately 2 weeks ago but that has resolved. Patient denies any chest pain, shortness of breath, fevers, one-sided weakness/tingling /numbness. Related Data Home Medications Medication Instructions Recorded Confirmed B-complex with vitamin C 1 tablet PO HS 04/19/21 05/06/24 lamotrigine 100 mg tablet 150 mg PO BID 07/11/22 05/06/24 lumateperone 42 mg capsule mg PO QHS 05/06/24 05/06/24 (Caplyta) omeprazole 40 mg capsule,delayed mg PO DAILY PRN 05/06/24 05/06/24 release sertraline 25 mg tablet 50 mg PO QHS 05/06/24 05/06/24 Allergies Allergy/AdvReac Type Severity Reaction Status Date / Time amoxicillin Allergy Intermediate HIVES Verified 08/31/24 08:52 Sulfa (Sulfonamide Allergy Hives Verified 08/31/24 08:52 Antibiotics) Review of Systems Review of Systems: All systems reviewed & are unremarkable except as noted in HPI and below PMFSH Past Medical History Medical History Anxiety Bipolar disorder Depression Diabetes type 2, controlled Diarrhea Elevated liver enzymes Epigastric pain GERD (gastroesophageal reflux disease) Social History Social History Smoking status: Never smoker Alcohol intake: current Drinks per week: 1 Alcohol use details: RARE Substance use: current Substance use type: other Other substance usage details: THC gummies Lack of Transportation: No Lack of Food: Never True Current Housing: I Have Housing Concerned About Future Housing: No Difficulty Paying Gas/Electric Bills: No Difficulty Paying for Meds: No Currently Unemployed: No Education: Don't Know Difficulty w/ Childcare or Family Care: No Living arrangements: with family Spiritual care concerns: No Exam Narrative: GENERAL: Well appearing, well-nourished, non-toxic, in mild acute distress d/t discomfort. HEAD: Normocephalic, atraumatic. NECK: Supple. No adenopathy, no masses. RESPIRATORY: Airway patent, respirations nonlabored. Clear to auscultation bilaterally, no rales, rhonchi, wheezing. CARDIOVASCULAR: Regular rate and rhythm without murmurs, rubs, or gallops. Peripheral pulses 2+ and equal bilaterally. ABDOMINAL: Soft, tender with palpation- worse in RUQ and RLQ, nondistended, no hepatosplenomegaly. Normoactive BS. MUSCULOSKELETAL: Moves all extremities. Strength/ROM intact without gross deformities. SKIN: Warm, dry, normal color. No rashes. NEURO: A&O X3. Speech clear. Cranial nerves II-XII grossly intact. Steady gait. No ataxic movements. PSYCHIATRIC: Appropriate mood and affect. Normal interaction. Course Vital Signs Vital signs: Vital Signs Temperature 37.1 C 08/31/24 08:47 Pulse Rate 97 08/31/24 08:47 Respiratory Rate 18 08/31/24 08:47 Blood Pressure 141/90 H 08/31/24 08:47 Pulse Oximetry 97 08/31/24 08:47 Oxygen Delivery Room Air 08/31/24 08:47 Temperature 36.7 C 08/31/24 13:50 Pulse Rate 83 08/31/24 13:50 Respiratory Rate 16 08/31/24 13:50 Blood Pressure 125/82 08/31/24 13:50 Pulse Oximetry 99 08/31/24 13:50 Oxygen Delivery Room Air 08/31/24 08:47 MDM - Abdominal Pain MDM Narrative Medical decision making narrative: Patient is a 38-year-old female who presents to the ER with complaints of back, right flank, and abdominal pain. She reports pain started on and her lower back. It has now radiated on to her right flank and increases when she takes a deep breath. Patient endorses increased nausea. She is due to get her menstrual cycle on Saturday. Patient endorses a history of ovarian cysts, type 2 diabetes, and an ovarian mass that had to be removed in 2021 for which she is followed by Oncology. Patient also endorses she had blood in her urine approximately 2 weeks ago but that has resolved. Patient denies any chest pain, shortness of breath, fevers, one-sided weakness/tingling /numbness. Labs Ordered: CBC, CMP, TSH, troponin, A1C, lipase, PTT, INR Imaging Ordered: CT abdomen/pelvis with contrast Results: CT scan showed The visualized portions of the lung bases demonstrate mild atelectasis. No pleural effusion. The heart size is normal. No pericardial effusion. There is diffuse hepatic steatosis. The gallbladder is normal. Again seen are multiple hypodense masses in the spleen measuring up to 9 mm, likely granulomatous disease. The pancreas, adrenal glands, and kidneys are normal. There are nabothian cysts in the cervix. There is a 2.9 cm dominant follicle in right ovary. There are no dilated loops of bowel. The appendix is normal. There are no pathologically enlarged lymph nodes. There is no free intraperitoneal fluid. There is mild lumbar spondylosis. Her CBC results were unremarkable. Patient's glucose was 141 and hemoglobin A1c was 6.2%. Her liver enzymes were mildly elevated with an AST of 62, and an ALT of 50. Patient's TSH was 5.95 with a Total T3 of 1.92 Her urinalysis indicated a urinary tract infection. 1315-Pt is still complaining of abdominal pain and nausea. She also endorses regular marijuana use. Patient counseled extensively regarding the importance of decreasing her use of marijuana. She also reported that she is able to get a ride home so will treat patient's nausea with Benadryl and Reglan, and treat her pain with 2 mg of morphine. Patient will also be given her 1st dose oral antibiotics here in the ER. Diagnosis: UTI, cannabinoid hyperemesis, abnormal thyroid levels Patient Education/Shared MDM: Patient educated on cannabinoid hyperemesis and advised to stop using marijuana, as this may be contributing to her symptoms. Results from pt's urinalysis were shared with patient and she will be placed on an antibiotic prescription to treat her UTI. Pt's TSH results were also shared with pt. It was explained to patient that her levels were elevated, but that a medication change should be done by her primary care provider or middle school science teacher, so patient reports she will get in contact with her middle school science teacher. Disposition/Plan: 1430- Patient reports her pain has improved after the 2nd round of medications. She verbalizes understanding of plan and is in agreement for discharge home. Patient advised to follow-up her middle school science teacher primary care provider. Differential Diagnosis Differential diagnosis: Likely abdominal pain, calculus of kidney, constipation, diverticulitis, gastroenteritis, small bowel obstruction and other (cannabinoid hyperemesis, UTI) Lab Data Attestation: I reviewed the patient's lab results. Lab results narrative: Impressions Abdomen/Pelvis CT 08/31/24 11:31 IMPRESSION: 1. No etiology for the patient's symptoms. 08/31/24 09:50 08/31/24 09:50 Labs: Lab Results 08/31/24 08/31/24 08/31/24 Range/Units 09:50 09:55 10:14 WBC 8.9 (4.5-10.0) K/mm3 RBC 5.00 (4.2-5.4) M/mm3 Hgb 13.9 D (12.0-15.0) g/dL Hct 40.9 (37.0-47.0) % MCV 81.8 (80-100) fl MCH 27.8 (26-34) pg MCHC 34.0 (32-36) g/dl RDW 13.5 (11.5-14.5) % Plt Count 256 (150-375) k/mm3 MPV 10.0 (7.4-10.4) fl Immature Gran % (Auto) 0.6 H (0-0.5) % Neut % (Auto) 65.8 (45.5-73.1) % Lymph % (Auto) 25.5 (18.3-44.2) % [place] % (Auto) 6.5 (2.6-8.5) % Eos % (Auto) 1.0 (0-4.4) % Baso % (Auto) 0.6 (0.2-1.2) % Lymph # (Auto) 2.26 (0.9-3.2) K/mm3 [place] # (Auto) 0.6 (0.1-0.6) K/mm3 Eos # (Auto) 0.1 (0-0.3) K/mm3 Baso # (Auto) 0.1 (0.0-0.1) K/mm3 Abs Immat Gran (auto) 0.05 H (0.00-0.031) K/mm3 Absolute Neuts (auto) 5.9 (1.3-6.7) K/mm3 Absolute Nucleated RBC 0.000 (0.0-0.012) K/mm3 Nucleated RBC % 0.0 (0.0-0.2) % PT 13.1 (11.1-14.7) Seconds INR 0.9 APTT 27.4 (22.3-36.8) Seconds Sodium 137 (137-145) mmol/L Potassium 4.2 (3.4-5.0) mmol/L Chloride 105 (98-107) mmol/L Carbon Dioxide 21 L (22-30) mmol/L Anion Gap 11 (4-12) mmol/L BUN 15 (7-17) mg/dL Creatinine 0.80 (0.7-1.0) mg/dL Estim Creat Clear Calc 102 ml/min Estimated GFR > 60 (59 - ) Glucose 141 H (65-110) mg/dL Hemoglobin A1c 6.2 H (<5.7) % Lactic Acid 1.8 (0.7-2.0) mmol/L Calcium 9.5 (8.4-10.2) mg/dL Total Bilirubin 0.6 (0.2-1.3) mg/dL AST 62 H (14-36) U/L ALT 59 H (6-35) U/L Alkaline Phosphatase 100 (38-126) U/L Troponin I < 0.012 (0.000-0.034) ng/mL Total Protein 7.0 (6.3-8.2) g/dL Albumin 4.7 (3.5-5.1) g/dL Lipase 96 (23-300) U/L TSH (Reflex) 5.950 H (0.465-4.68) uIU/mL Free T4 1.32 (0.78-2.19) ng/dL Total T3 1.92 H (0.97-1.69) NG/ML Urine Color Yellow (Yellow) Urine Appearance Cloudy H (Clear) Urine pH 5.5 (5.0-9.0) Ur Specific [place] 1.018 (1.001-1.035) Urine Protein 1+ H (Negative) mg/dL Urine Glucose (UA) Negative (Negative) mg/dL Urine Ketones Negative (Negative) mg/dL Ur Blood (Man) Negative (Negative) Urine Nitrate Negative (Negative) Urine Bilirubin Negative (Negative) Urine Urobilinogen 0.2 (<2.0) mg/dL Leukocyte Esterase Rfl 2+ H (Negative) LATRELL/UL Urine RBC 3-5 H (0-2) /hpf Urine WBC 21-50 H (0-3) /hpf Ur Squamous Epith Cells Moderate (Few) /hpf Urine Bacteria 1+ H /hpf Urine Casts 0-2 Imaging Data Attestation: I personally reviewed and interpreted this imaging study as follows: Radiologist's impression: ITS Impressions Abdomen/Pelvis CT 08/31/24 11:31 IMPRESSION: 1. No etiology for the patient's symptoms. Discharge Plan Discharge Clinical Impression: Urinary tract infection, Abnormal thyroid function test, Cannabinoid hyperemesis syndrome Patient Disposition: Home, Self-Care Condition: Stable Instructions: Antibiotic Form, Urinary Tract Infection in Women (ED), Cannabis Use Disorder (ED), Abdominal Pain (ED) Additional Instructions: Patient is in agreement with current treatment plan. All questions answered. Vital signs stable at time of discharge. Please return to the ER with an worsening symptoms. Follow-up with primary care provider in the next 2-3 days. Take all medications as prescribed. Prescriptions: New nitrofurantoin monohyd/m-cryst [Macrobid] 100 mg capsule 100 mg PO Q12H 5 Days Qty: 10 0RF Rx Instructions: must administer with a meal/food phenazopyridine [Pyridium] 100 mg tablet 100 mg PO TID PRN (Reason: pain) Qty: 7 0RF No Action B-complex with vitamin C Tablet 1 tablet PO HS cholecalciferol (vitamin D3) 1,250 mcg (50,000 unit) tablet 1,250 mcg PO WEEKLY Qty: 14 1RF (DME) Dexcom G7 Campus Monitor Misc See Rx Instructions .ROUTE .MEDSUPPLY Qty: 1 0RF Rx Instructions: As directed (DME) Dexcom G7 Sensor Device See Rx Instructions .ROUTE .MEDSUPPLY Qty: 9 1RF Rx Instructions: As directed sertraline 25 mg tablet 50 mg PO QHS omeprazole 40 mg capsule,delayed release(DR/EC) PO DAILY PRN Caplyta 42 mg capsule PO QHS metformin 1,000 mg tablet 1,000 mg PO BID Qty: 180 2RF diphenhydramine HCl [Benadryl] 25 mg capsule 25 mg PO Q6H PRN (Reason: muscle spasm) Qty: 30 0RF lamotrigine 100 mg tablet 150 mg PO BID lorazepam [Ativan] 0.5 mg tablet 0.5 mg PO TID PRN (Reason: anxiety) Qty: 10 0RF ferrous sulfate 325 mg (65 mg iron) tablet 325 mg PO BID Qty: 180 1RF Follow-up/Referrals: Estefany,Deep Shah MD [Primary Care Provider] - Time of Disposition: 15:00
[2024-08-31 10:31] VITALS: BP 118/73; PULSE 71; RESP 16; TEMP 36.6; O2SAT 98
[2024-08-31 10:33] LABS: Basophils Absolute Auto 0.1 K/mm3 (0.0-0.1); Basophils Percent Auto 0.6 % (0.2-1.2); Eosinophils Absolute Auto 0.1 K/mm3 (0-0.3); Hematocrit 40.9 % (37.0-47.0); Hemoglobin 13.9 g/dL (12.0-15.0); Immature Granulocyte Absolute 0.05 K/mm3 (0.00-0.031); Immature Granulocyte Percent A 0.6 % (0-0.5); Lymphocytes Absolute Auto 2.26 K/mm3 (0.9-3.2); Lymphocytes Percent Auto 25.5 % (18.3-44.2); Mean Corpuscular Hemoglobin 27.8 pg (26-34); Mean Corpuscular Volume 81.8 fl (80-100); Monocytes Absolute Auto 0.6 K/mm3 (0.1-0.6); Monocytes Percent Auto 6.5 % (2.6-8.5); Neutrophils Absolute Auto 5.9 K/mm3 (1.3-6.7); Neutrophils Percent Auto 65.8 % (45.5-73.1); Platelet Count Result 256 k/mm3 (150-375); Red Cell Distribution Width 13.5 % (11.5-14.5); White Blood Count 8.9 K/mm3 (4.5-10.0)
[2024-08-31 10:34] LABS: Lactic Acid Reflex 1.8 mmol/L (0.7-2.0)
[2024-08-31 10:42] LABS: Add Urine Microscopic? YES; Appearance Urine Cloudy (Clear); Bacteria Urine 1+ /hpf; Bilirubin Urine Negative (Negative); Blood Urine Negative (Negative); Color Urine Yellow (Yellow); Glucose Urine UA Negative (Negative); Ketones Urine Negative (Negative); Leukocyte Esterase Ur 2+ LEU/UL (Negative); Nitrate Urine Negative (Negative); Non Pathogenic Casts 0-2; Protein Urine 1+ mg/dL (Negative); Specific Grav Ur 1.018 (1.001-1.035); Squamous Epithelial Cell Urine Moderate /hpf (Few); Urobilinogen Urine 0.2 mg/dL (<2.0); WBC Urine 21-50 /hpf (0-3); pH Urine 5.5 (5.0-9.0)
[2024-08-31 10:42] LABS: Alanine Aminotransferase 59 U/L (6-35); Albumin Level 4.7 g/dL (3.5-5.1); Alkaline Phosphatase 100 U/L (38-126); Anion Gap 11 mmol/L (4-12); Aspartate Amino Transferase 62 U/L (14-36); Bilirubin,Total 0.6 mg/dL (0.2-1.3); Blood Urea Nitrogen 15 mg/dL (7-17); Calcium 9.5 mg/dL (8.4-10.2); Carbon Dioxide 21 mmol/L (22-30); Chloride 105 mmol/L (98-107); Estimated CRCL calculation 102 ml/min; Estimated Glomerular Filt Rate > 60; Glucose 141 mg/dL (65-110); Lipase 96 U/L (23-300); Potassium 4.2 mmol/L (3.4-5.0); Sodium 137 mmol/L (137-145)
[2024-08-31 10:44] LABS: INR 0.9; Prothrombin Time 13.1 Seconds (11.1-14.7)
[2024-08-31 10:45] LABS: Partial Thromboplastin Time 27.4 Seconds (22.3-36.8)
[2024-08-31 10:54] LABS: Troponin I < 0.012 ng/mL (0.000-0.034)
[2024-08-31 10:58] LABS: Hemoglobin A1C 6.2 % (<5.7)
[2024-08-31 11:00] VITALS: O2SAT 94
[2024-08-31 11:55] LABS: Free T4 Free Thyroxine Reflex 1.32 ng/dL (0.78-2.19)
[2024-08-31 12:29] LABS: Total Triiodothyronine (T3) 1.92 NG/ML (0.97-1.69)
[2024-08-31 12:31] VITALS: BP 113/67; PULSE 71; RESP 16; TEMP 36.8; O2SAT 95
--- NOTE | 2024-08-31 13:11 | PC.NURSE ---
Pt c/o abd pain & nausea. Gisela MUÑOZ
[2024-08-31] MEDS: NITROFURANTOIN MONOHYD MACROCR 100 MG CAP PO (13:45)
[2024-08-31] MEDS: METOCLOPRAMIDE HCL INJ 10 MG/2 ML VIAL IV PUSH (13:46)
[2024-08-31] MEDS: MORPHINE SULFATE (*CRX) 2 MG/ML INJ IV PUSH (13:46)
[2024-08-31] MEDS: diphenhydrAMINE HCl INJ 50 MG/ML VIAL 25 MG IV PUSH (13:46)
[2024-08-31 13:50] VITALS: BP 125/82; PULSE 83; RESP 16; TEMP 36.7; O2SAT 99
[2024-08-31 17:03] LABS: BEDSIDEPREGUCG Negative (Negative)
== END 2024-08-31 15:12 | disposition home or self-care (01) ==
PROVIDERS: Emergency Provider Registered Nurse; PCP Internal Medicine
DX: N39.0 Urinary tract infection, site not specified (principal); R11.2 Nausea with vomiting, unspecified; F12.90 Cannabis use, unspecified, uncomplicated; R94.6 Abnormal results of thyroid function studies; E11.9 Type 2 diabetes mellitus without complications; K21.9 Gastro-esophageal reflux disease without esophagitis; F31.9 Bipolar disorder, unspecified; F41.9 Anxiety disorder, unspecified; Z79.899 Other long term (current) drug therapy; Z79.84 Long term (current) use of oral hypoglycemic drugs
CPT/HCPCS: 36415; 74177; 80053; 81001; 81025; 83036; 83605; 83690; 84439; 84443; 84480; 84484; 85025; 85610; 85730; 87086; 96361; 96374; 96375; 99284; A9270; J1200; J1885; J2270; J2405; J2765; J7030; Q9967

== ENCOUNTER 2025-05-04 19:57 | Observation (INO) | payer OTHER, SELFPAY ==
--- NOTE | ~2025-05-04 | US_ITS ---
EXAM: PELVIC ULTRASOUND HISTORY: heavy vaginal bleeding . 0. Last menstrual period is given as 04/24/2025 COMPARISON: 07/25/2022. Reference is also made to the CT examination of the abdomen and pelvis dated 08/31/2024 FINDINGS: UTERUS: 9.1 x 4.6 x 6.1 cm. The uterus is anteverted and anteflexed. The endometrial complex measures 4.3 mm. Multiple fibroids are identified within the uterus. The largest is within the subserosal space along the caudal fundus measuring 3.2 x 2.1 cm. RIGHT OVARY: The right ovary is unremarkable in echogenicity and size measuring 4.1 x 2.7 x 2.4 cm. Dopplerable flow is identified. LEFT OVARY: The left ovary is unremarkable in echogenicity and size measuring 4.5 x 1.9 x 2.7 cm Dopplerable flow is identified. No free fluid is identified within the pelvis. IMPRESSION: Fibroid uterus. Otherwise, unremarkable sonographic evaluation of the female pelvis, as detailed above. Reviewed, dictated and finalized at location A. IMPRESSION: Fibroid uterus. Otherwise, unremarkable sonographic evaluation of the female pelvis, as detaile d above.
--- OUTSIDE RECORDS SUMMARY | 2025-05-04 20:00 | XMS_ITS | Patient Health Record ---
Author Organization [facility] Address [address] [place] [address] Care Team Providers Care Automatic Buffing Wheel Former Name Role Phone Deep Allison MD Primary Care Provider Unavail able Bruno Salmeron Unavailable [phone] Amy Amaro Unavailable [phone] Elroy Sheriff Unavailable [phone] Allergies Allergen (clinical drug ingredient) Drug/Non Drug Allergy documented on EMR Reaction Allergy Type Onset Date Status amoxicillin Amoxicillin Unknown Drug Allergy 12/11/2023 Ac tive Substance with sulfonamide structure and antibacterial mechanism of action (substance) Sulfa Antibiotics Unknown Drug Allergy Active Reason For Referral No Information Medications Medication SIG (Take, Route, Frequency, Duration) Notes Start Date End Date Status Ozempic (0.25 or 0.5 MG/DOSE) 2 MG/3ML INJECT 0.5 MG UNDER THE SKIN EVERY WEEK Subcutaneous; Duration: 28 Days Active Ferrous Sulfate 325 (65 Fe) MG Oral 12/11/2023 Active Multivitamin Adults Oral 12/11/2023 Active DULoxetine HCl 60 MG 1 capsule at bedtim e Orally Once a day; Duration: 30 days 12/02/2024 Active metFORMIN HCl 1000 MG Oral 12/11/2023 Active DULoxetine HCl 30 MG 1 capsule Orally On ce a day; Duration: 14 days 12/02/2024 Active Famotidine 20 MG 1 TABLET Orally Once a day 05/20/2024 Active Folic Acid 1 MG 1 tablet Orally Once a day 05/20/2024 Active Caplyta 10.5 MG 1 capsule Orally onc e daily; Duration: 30 days 07/01/2024 Not-Taking lamoTRIgine 150 MG 1 tablet Oral twice a day; Duration: 90 days Active buPROPion HCl ER (XL) 150 MG 1 tablet in the morning Orally Once a day; Duration: 7 days Active Ingrezza 80 mg Take [address] [facility] once daily; Duration: 30 Active Auvelity 45-105 MG 1 tablet once a day for 7 days, 1 tablet 2 times a day for 23 days Orally see sign; Duration: 30 days 12/07/2024 Active Immunizations Vaccine Route Administration Date Status Comme nts Moderna Covid-19 Vaccine 1st dose Unknown 11/01/2020 Ad ministered Moderna Covid-19 Vaccine 1st dose Unknown 11/29/2020 Ad ministered Novel [id number], preservative free Unknown 08/15/2018 Administered Td (adult) Unknown 05/07/2004 Administered Social History Tobacco Use: Social History Observation Description Date Details (start date - stop date) Never Smoker NA - NA Sex Assigned At : Social History Observation Description Sex Assigned At Female Tobacco Control (Standard) Question Answer Notes Tobacco use: Nonsmoker Problems Problem Type SNOMED Code ICD Code Onset Dates Problem Status W/U Status Risk Notes Problem Bipolar disorder, current episode depressed, mild or moderate severity, unspecified (F31.30) 4 Active confirmed Problem Generalized anxiety disorder (97850966) Generalized anxiety disorder (F41.1) 4 Active confirmed Vital Signs Heart Rate 92 /min 12/02/2024 Temperature 98.5 degrees Fahrenheit 05/12/2024 Height-cm 170.18 cm 12/02/2024 Blood pressure diastolic 81 mm Hg 12/02/2024 Weight-kg 96.16 kg 12/02/2024 Height 67.0 in 12/02/2024 Blood pressure systolic 121 mm Hg 12/02/2024 Weight 212 lbs 12/02/2024 BMI 33.2 kg/m2 12/02/2024 Encounters Encounter Location Date Provider Diagnosis [facility] [address] [place] [address] 05/12/2024 Elroy Clubb Generalized anxiety disorder F41.1 ; Serotonin syndrome G25.79 and Bipolar disorder, current episode depressed, mild or moderate severity, unspecified F31.30 [facility] [address] [place] [address] 05/20/2024 Bruno Salmeron Generalized anxiety disorder F41.1 ; Bipolar disorder, current episode depressed, mild or moderate severity, unspecified F31.30 ; 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 and Adverse effect of unspecified antipsychotics and neuroleptics, initial encounter [id number] [facility] [address] [place] [address] 06/03/2024 Bruno Salmeron Generalized anxiety disorder F41.1 ; Bipolar disorder, current episode depressed, mild or moderate severity, unspecified F31.30 ; 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 and Adverse effect of unspecified antipsychotics and neuroleptics, initial encounter [id number] [facility] [address] [place] [address] 07/01/2024 Bruno Salmeron Generalized anxiety disorder F41.1 ; Bipolar disorder, current episode depressed, mild or moderate severity, unspecified F31.30 ; 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 and Cannabis use, uncomplicated F12.90 [facility] [employer] [facility] [address] [place] [address] 07/29/2024 Bruno Salmeron Generalized anxiety disorder F41.1 ; Bipolar disorder, current episode depressed, mild or moderate severity, unspecified F31.30 ; 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 and Cannabis use, uncomplicated F12.90 [facility] [employer] [facility] [address] [place] [address] 10/07/2024 Bruno Salmeron Generalized anxiety disorder F41.1 ; Bipolar disorder, current episode depressed, mild or moderate severity, unspecified F31.30 ; 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 and Cannabis use, uncomplicated F12.90 [facility] [employer] [facility] [address] [place] [address] 11/04/2024 Bruno Salmeron Generalized anxiety disorder F41.1 ; Bipolar disorder, current episode depressed, mild or moderate severity, unspecified F31.30 ; 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 and Cannabis use, uncomplicated F12.90 [facility] [employer] [facility] [address] [place] [address] 12/02/2024 Bruno Salmeron Generalized anxiety disorder F41.1 ; Bipolar disorder, current episode depressed, mild or moderate severity, unspecified F31.30 ; 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 and Cannabis use, uncomplicated F12.90 [facility], [facility] [address] [place] [address] 06/02/2024 [facility], [facility] [address] [place] [address] 05/10/2024 [facility], [facility] [address] [place] [address] 05/11/2024 [facility], [facility] [address] [place] [address] 05/11/2024 [facility], [facility] [address] [place] [address] 05/11/2024 [facility], [facility] [address] [place] [address] 05/11/2024 [facility], [facility] [address] [place] [address] 05/13/2024 [facility], [facility] [address] [place] [address] 05/14/2024 [facility], [facility] [address] [place] [address] 05/25/2024 [facility], [facility] [address] [place] [address] 05/27/2024 [facility], [facility] [address] [place] [address] 06/10/2024 [facility], [facility] [address] [place] [address] 06/12/2024 [facility], [facility] [address] [place] [address] 07/05/2024 [facility], [facility] [address] [place] [address] 08/17/2024 [facility], [facility] [address] [place] [address] 09/02/2024 Bruno Salmeron [facility], [facility] [address] [place] [address] 09/03/2024 Bruno Salmeron [facility], [facility] [address] [place] [address] 09/21/2024 Bruno Salmeron Bipolar disorder, current episode depressed, mild or moderate severity, unspecified F31.30 [facility], [facility] [address] [place] [address] 09/25/2024 Bruno Salmeron [facility], [facility] [address] [place] [address] 09/25/2024 Bruno Salmeron [facility], [facility] [address] [place] [address] 09/28/20[facility], [facility] [address] [place] [address] 12/03/2024 Bruno Salmeron Bipolar disorder, current episode depressed, mild or moderate severity, unspecified F31.30 [facility], [facility] [address] [place] [address] 12/07/2024 Bruno Salmeron [facility], [facility] [address] [place] [address] 12/24/2024 Bruno Mana Assessments Encounter Date Diagnosis (ICD Code) Assessment Notes Treatment Notes Treatment Clinical Notes Section Notes 12/03/2024 Bipolar disorder, current episode depressed, mild or moderate severity, unspecified (ICD-10 - F31.30) 11/04/2024 Generalized anxiety disorder (ICD-10 - F41.1) stable 09/21/2024 Bipolar disorder, current episode depressed, mild or moderate severity, unspecified (ICD-10 - F31.30) 10/07/2024 Generalized anxiety disorder (ICD-10 - F41.1) stable 1. Seasonal depression: - Patient reports feeling lazy, depressed, and low motivation. Plan: - Add bupropion XL 150 mg every morning to help with energy, motivation, and mood. - Monitor for improvement in depressive symptoms. 2. Tardive dyskinesia: - Patient reports improvement in abnormal movements with Ingrezza and lamotrigine. Plan: - Continue Ingrezza and lamotrigine as prescribed. - Monitor for any recurrence of abnormal movements. 3. PMDD: - Patient reports recent period and possible exacerbation of mood symptoms. Plan: - Monitor mood symptoms in relation to menstrual cycle. - Consider further evaluation and treatment if PMDD is confirmed. 4. Job-related stress: - Patient reports high stress at work and therapist's recommendation to find a new job. Plan: - Encourage patient to continue therapy. - Explore options for improving work-life balance or finding a more suitable job. 5. Cannabinoid use: - Patient reports using THC occasionally for relaxation and motivation. Plan: - Caution patient about the potential long-term effects of THC on mood and depression. - Encourage patient to monitor their use and consider alternative coping strategies. 12/02/2024 Bipolar disorder, current episode depressed, mild or moderate severity, unspecified (ICD-10 - F31.30) Lamotrigine 150mg bid 12/02/2024 Generalized anxiety disorder (ICD-10 - F41.1) stable 05/12/2024 Generalized anxiety disorder (ICD-10 - F41.1) 05/12/2024 Serotonin syndrome (ICD-10 - G25.79) 05/20/2024 Bipolar disorder, current episode depressed, mild or moderate severity, unspecified (ICD-10 - F31.30) 1. Serotonin Syndrome - The patient was diagnosed with serotonin syndrome after starting sertraline. Sertraline has been discontinued, and the patient's symptoms have improved. No further intervention is needed for serotonin syndrome at this time. 2. Tardive Dyskinesia - The patient exhibits symptoms consistent with tardive dyskinesia, history of exposure to antipsychotic medications. -AIMS Scale completed, score 12 Plan: - Start Ingrezza 40 mg for tardive dyskinesia. - Schedule a follow-up appointment in two weeks to assess the response to Ingrezza. 3. Bipolar Disorder - The patient is currently on lamotrigine 75 mg twice a day, which is insufficient for mood stabilization. Plan: - Increase lamotrigine to 150 mg twice a day. - Monitor mood symptoms and adjust medications as needed. - Avoid antipsychotics if possible, but consider reintroducing Caplyta if necessary after the acute phase. 4. Anxiety and Sleep Disturbance - The patient is currently tapering off lorazepam, which may be contributing to anxiety and sleep disturbances. Plan: - Continue the lorazepam taper as prescribed. - Monitor anxiety and sleep symptoms during follow-up appointments. 5. Preconception Care - The patient is trying to conceive and has been advised to take folic acid. Plan: - Continue taking folic acid as recommended. - Monitor for and adjust medications as needed during . 6. Possible Seizure Disorder - The patient has a history of possible seizure-like episodes, but no definitive diagnosis has been made. Plan: - Refer the patient to a neurologist for further evaluation and possible EEG and MRI. - Monitor for any new seizure-like symptoms during follow-up appointments. 7. Medication Interactions - The patient has a history of using THC, which may interfere with the metabolism of other medications and exacerbate anxiety and depression symptoms. Plan: - Advise the patient to avoid THC and other substances that may interact with medications. - Monitor for any changes in symptoms or medication effectiveness during follow-up appointments. 05/20/2024 Generalized anxiety disorder (ICD-10 - F41.1) 1. Serotonin Syndrome - The patient was diagnosed with serotonin syndrome after starting sertraline. Sertraline has been discontinued, and the patient's symptoms have improved. No further intervention is needed for serotonin syndrome at this time. 2. Tardive Dyskinesia - The patient exhibits symptoms consistent with tardive dyskinesia, history of exposure to antipsychotic medications. -AIMS Scale completed, score 12 Plan: - Start Ingrezza 40 mg for tardive dyskinesia. - Schedule a follow-up appointment in two weeks to assess the response to Ingrezza. 3. Bipolar Disorder - The patient is currently on lamotrigine 75 mg twice a day, which is insufficient for mood stabilization. Plan: - Increase lamotrigine to 150 mg twice a day. - Monitor mood symptoms and adjust medications as needed. - Avoid antipsychotics if possible, but consider reintroducing Caplyta if necessary after the acute phase. 4. Anxiety and Sleep Disturbance - The patient is currently tapering off lorazepam, which may be contributing to anxiety and sleep disturbances. Plan: - Continue the lorazepam taper as prescribed. - Monitor anxiety and sleep symptoms during follow-up appointments. 5. Preconception Care - The patient is trying to conceive and has been advised to take folic acid. Plan: - Continue taking folic acid as recommended. - Monitor for and adjust medications as needed during . 6. Possible Seizure Disorder - The patient has a history of possible seizure-like episodes, but no definitive diagnosis has been made. Plan: - Refer the patient to a neurologist for further evaluation and possible EEG and MRI. - Monitor for any new seizure-like symptoms during follow-up appointments. 7. Medication Interactions - The patient has a history of using THC, which may interfere with the metabolism of other medications and exacerbate anxiety and depression symptoms. Plan: - Advise the patient to avoid THC and other substances that may interact with medications. - Monitor for any changes in symptoms or medication effectiveness during follow-up appointments. 06/03/2024 Generalized anxiety disorder (ICD-10 - F41.1) 1. Tardive dyskinesia: - Patient reports improvement in abnormal movements, with residual mouth movements and occasional jerks. No significant impact on daily functioning. Plan: - Increase Ingrezza to 80 mg daily to address residual symptoms. - Monitor for further improvement or side effects. - Follow up in one month. 2. Anxiety and stress: - Patient experiences increased abnormal movements during periods of anxiety and stress, particularly at the gym. Plan: - Encourage continued engagement in stress-reducing activities such as hot yoga and attending yazidi. - Consider referral to a therapist for additional support if needed. 3. Mood stability (bipolar disorder): - Patient reports improved mood with Lamotrigine 150 mg daily, with only one mood swing in the past couple of weeks. Plan: - Continue Lamotrigine at the current dose. - Monitor for mood stability and side effects. - Follow up in one month. 4. Seasonal depression: - Patient experiences increased depressive symptoms during the winter months. Plan: - Monitor for worsening of symptoms during the upcoming winter season. - Consider adjusting medication or adding additional support as needed. 5. Vivid, nightmarish dreams: - Patient reports experiencing vivid, nightmarish dreams after starting Ingrezza, but not recently. Plan: - Monitor for recurrence of vivid dreams. - If they persist or worsen, consider evaluating for potential medication side effects or other contributing factors. 6. Medication management: - Patient is currently taking Ingrezza and Lamotrigine for mood stability and abnormal movements. Plan: - Increase Ingrezza to 80 mg daily. - Continue Lamotrigine at 150 mg daily. - Coordinate with pharmacy for Ingrezza prescription. - Follow up in one month to assess medication effectiveness and side effects. 07/01/2024 Bipolar disorder, current episode depressed, mild or moderate severity, unspecified (ICD-10 - F31.30) Lamotrigine 150mg bid, start caplyta 10. 5 milligrams daily 1. Tardive Dyskinesia: - Patient reports improvement in abnormal movements with Ingrezza. Tics and movements are more noticeable when sleepy or stressed. Plan: - Continue Ingrezza 80 mg daily. Refill prescription through [facility]. Monitor and reassess in one month. 2. Bipolar Disorder: - Patient reports recent manic episode lasting 2-3 weeks, followed by depressive episodes. Currently experiencing mood fluctuations and relationship stressors. Plan: - Continue Lamotrigine 150 mg twice daily. Add Caplyta 10.5 mg daily for bipolar depression. Monitor mood and side effects. Reassess in one month. 3. Lifestyle and Coping Strategies: - Patient is trying to stay active, attending the gym, and going for walks. Reports using marijuana to help with mood and winding down at night. Plan: - Encourage continued engagement in physical activity and healthy coping strategies. Monitor marijuana use and potential impact on mood and tics. Reassess in one month. 4. Follow-up: - Schedule a follow-up appointment in one month to monitor progress and adjust treatment plan as needed. 07/01/2024 Generalized anxiety disorder (ICD-10 - F41.1) stable 1. Tardive Dyskinesia: - Patient reports improvement in abnormal movements with Ingrezza. Tics and movements are more noticeable when sleepy or stressed. Plan: - Continue Ingrezza 80 mg daily. Refill prescription through [facility]. Monitor and reassess in one month. 2. Bipolar Disorder: - Patient reports recent manic episode lasting 2-3 weeks, followed by depressive episodes. Currently experiencing mood fluctuations and relationship stressors. Plan: - Continue Lamotrigine 150 mg twice daily. Add Caplyta 10.5 mg daily for bipolar depression. Monitor mood and side effects. Reassess in one month. 3. Lifestyle and Coping Strategies: - Patient is trying to stay active, attending the gym, and going for walks. Reports using marijuana to help with mood and winding down at night. Plan: - Encourage continued engagement in physical activity and healthy coping strategies. Monitor marijuana use and potential impact on mood and tics. Reassess in one month. 4. Follow-up: - Schedule a follow-up appointment in one month to monitor progress and adjust treatment plan as needed. 07/29/2024 Generalized anxiety disorder (ICD-10 - F41.1) stable 1. Bipolar Disorder - Stable - Plan: Continue Lamotrigine 150 mg twice a day. Monitor for any changes in mood or emergence of depressive or hypomanic/manic symptoms. 2. Tardive Dyskinesia - Improving - Plan: Continue [place]edo 80 mg daily. Monitor for any worsening of abnormal movements, especially when patient is very sleepy. 3. Anxiety - Stable - Plan: Maintain current treatment plan. Continue to monitor anxiety levels, particularly in work situations. 4. Diabetes and Weight Management - Plan: Continue metformin for diabetes management. Encourage regular blood sugar monitoring and adherence to a healthy diet. Recommend maintaining regular exercise routine, aiming for at least four times a week. 5. Follow-up appointment - Plan: Schedule a follow-up appointment in 2 months to reassess the patient's progress and make any necessary adjustments to the treatment plan. 06/03/2024 Bipolar disorder, current episode depressed, mild or moderate severity, unspecified (ICD-10 - F31.30) lamotrigine 150mg bid, Learning About Movement Disorders From Antipsychotic Medicines material was published 1. Tardive dyskinesia: - Patient reports improvement in abnormal movements, with residual mouth movements and occasional jerks. No significant impact on daily functioning. Plan: - Increase Ingrezza to 80 mg daily to address residual symptoms. - Monitor for further improvement or side effects. - Follow up in one month. 2. Anxiety and stress: - Patient experiences increased abnormal movements during periods of anxiety and stress, particularly at the gym. Plan: - Encourage continued engagement in stress-reducing activities such as hot yoga and attending yazidi. - Consider referral to a therapist for additional support if needed. 3. Mood stability (bipolar disorder): - Patient reports improved mood with Lamotrigine 150 mg daily, with only one mood swing in the past couple of weeks. Plan: - Continue Lamotrigine at the current dose. - Monitor for mood stability and side effects. - Follow up in one month. 4. Seasonal depression: - Patient experiences increased depressive symptoms during the winter months. Plan: - Monitor for worsening of symptoms during the upcoming winter season. - Consider adjusting medication or adding additional support as needed. 5. Vivid, nightmarish dreams: - Patient reports experiencing vivid, nightmarish dreams after starting Ingrezza, but not recently. Plan: - Monitor for recurrence of vivid dreams. - If they persist or worsen, consider evaluating for potential medication side effects or other contributing factors. 6. Medication management: - Patient is currently taking Ingrezza and Lamotrigine for mood stability and abnormal movements. Plan: - Increase Ingrezza to 80 mg daily. - Continue Lamotrigine at 150 mg daily. - Coordinate with pharmacy for Ingrezza prescription. - Follow up in one month to assess medication effectiveness and side effects. 07/29/2024 Bipolar disorder, current episode depressed, mild or moderate severity, unspecified (ICD-10 - F31.30) Lamotrigine 150mg bid 1. Bipolar Disorder - Stable - Plan: Continue Lamotrigine 150 mg twice a day. Monitor for any changes in mood or emergence of depressive or hypomanic/manic symptoms. 2. Tardive Dyskinesia - Improving - Plan: Continue Austedo 80 mg daily. Monitor for any worsening of abnormal movements, especially when patient is very sleepy. 3. Anxiety - Stable - Plan: Maintain current treatment plan. Continue to monitor anxiety levels, particularly in work situations. 4. Diabetes and Weight Management - Plan: Continue metformin for diabetes management. Encourage regular blood sugar monitoring and adherence to a healthy diet. Recommend maintaining regular exercise routine, aiming for at least four times a week. 5. Follow-up appointment - Plan: Schedule a follow-up appointment in 2 months to reassess the patient's progress and make any necessary adjustments to the treatment plan. 07/01/2024 Drug induced subacute dyskinesia (ICD-10 - G24.01) Continue Ingrezza 80 milligrams daily 1. Tardive Dyskinesia: - Patient reports improvement in abnormal movements with Ingrezza. Tics and movements are more noticeable when sleepy or stressed. Plan: - Continue Ingrezza 80 mg daily. Refill prescription through [facility]. Monitor and reassess in one month. 2. Bipolar Disorder: - Patient reports recent manic episode lasting 2-3 weeks, followed by depressive episodes. Currently experiencing mood fluctuations and relationship stressors. Plan: - Continue Lamotrigine 150 mg twice daily. Add Caplyta 10.5 mg daily for bipolar depression. Monitor mood and side effects. Reassess in one month. 3. Lifestyle and Coping Strategies: - Patient is trying to stay active, attending the gym, and going for walks. Reports using marijuana to help with mood and winding down at night. Plan: - Encourage continued engagement in physical activity and healthy coping strategies. Monitor marijuana use and potential impact on mood and tics. Reassess in one month. 4. Follow-up: - Schedule a follow-up appointment in one month to monitor progress and adjust treatment plan as needed. 05/12/2024 Bipolar disorder, current episode depressed, mild or moderate severity, unspecified (ICD-10 - F31.30) 05/20/2024 Drug induced subacute dyskinesia (ICD-10 - G24.01) Electronic Prior Authorization was requested for Ingrezza 40 MG Capsule. Provider can order medication once approval received. 1. Serotonin Syndrome - The patient was diagnosed with serotonin syndrome after starting sertraline. Sertraline has been discontinued, and the patient's symptoms have improved. No further intervention is needed for serotonin syndrome at this time. 2. Tardive Dyskinesia - The patient exhibits symptoms consistent with tardive dyskinesia, history of exposure to antipsychotic medications. -AIMS Scale completed, score 12 Plan: - Start Ingrezza 40 mg for tardive dyskinesia. - Schedule a follow-up appointment in two weeks to assess the response to Ingrezza. 3. Bipolar Disorder - The patient is currently on lamotrigine 75 mg twice a day, which is insufficient for mood stabilization. Plan: - Increase lamotrigine to 150 mg twice a day. - Monitor mood symptoms and adjust medications as needed. - Avoid antipsychotics if possible, but consider reintroducing Caplyta if necessary after the acute phase. 4. Anxiety and Sleep Disturbance - The patient is currently tapering off lorazepam, which may be contributing to anxiety and sleep disturbances. Plan: - Continue the lorazepam taper as prescribed. - Monitor anxiety and sleep symptoms during follow-up appointments. 5. Preconception Care - The patient is trying to conceive and has been advised to take folic acid. Plan: - Continue taking folic acid as recommended. - Monitor for and adjust medications as needed during . 6. Possible Seizure Disorder - The patient has a history of possible seizure-like episodes, but no definitive diagnosis has been made. Plan: - Refer the patient to a neurologist for further evaluation and possible EEG and MRI. - Monitor for any new seizure-like symptoms during follow-up appointments. 7. Medication Interactions - The patient has a history of using THC, which may interfere with the metabolism of other medications and exacerbate anxiety and depression symptoms. Plan: - Advise the patient to avoid THC and other substances that may interact with medications. - Monitor for any changes in symptoms or medication effectiveness during follow-up appointments. 12/02/2024 Drug induced subacute dyskinesia (ICD-10 - G24.01) Continue Ingrezza 80 milligrams daily 10/07/2024 Bipolar disorder, current episode depressed, mild or moderate severity, unspecified (ICD-10 - F31.30) Lamotrigine 150mg bid 1. Seasonal depression: - Patient reports feeling lazy, depressed, and low motivation. Plan: - Add bupropion XL 150 mg every morning to help with energy, motivation, and mood. - Monitor for improvement in depressive symptoms. 2. Tardive dyskinesia: - Patient reports improvement in abnormal movements with Ingrezza and lamotrigine. Plan: - Continue Ingrezza and lamotrigine as prescribed. - Monitor for any recurrence of abnormal movements. 3. PMDD: - Patient reports recent period and possible exacerbation of mood symptoms. Plan: - Monitor mood symptoms in relation to menstrual cycle. - Consider further evaluation and treatment if PMDD is confirmed. 4. Job-related stress: - Patient reports high stress at work and therapist's recommendation to find a new job. Plan: - Encourage patient to continue therapy. - Explore options for improving work-life balance or finding a more suitable job. 5. Cannabinoid use: - Patient reports using THC occasionally for relaxation and motivation. Plan: - Caution patient about the potential long-term effects of THC on mood and depression. - Encourage patient to monitor their use and consider alternative coping strategies. 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 Seasonal depression: - Patient reports feeling lazy, depressed, and low motivation. Plan: - Add bupropion XL 150 mg every morning to help with energy, motivation, and mood. - Monitor for improvement in depressive symptoms. 2. Tardive dyskinesia: - Patient reports improvement in abnormal movements with Ingrezza and lamotrigine. Plan: - Continue Ingrezza and lamotrigine as prescribed. - Monitor for any recurrence of abnormal movements. 3. PMDD: - Patient reports recent period and possible exacerbation of mood symptoms. Plan: - Monitor mood symptoms in relation to menstrual cycle. - Consider further evaluation and treatment if PMDD is confirmed. 4. Job-related stress: - Patient reports high stress at work and therapist's recommendation to find a new job. Plan: - Encourage patient to continue therapy. - Explore options for improving work-life balance or finding a more suitable job. 5. Cannabinoid use: - Patient reports using THC occasionally for relaxation and motivation. Plan: - Caution patient about the potential long-term effects of THC on mood and depression. - Encourage patient to monitor their use and consider alternative coping strategies. 12/02/2024 Cannabis use, uncomplicated (ICD-10 - F12.90) 05/20/2024 Adverse effect of unspecified antipsychotics and neuroleptics, initial encounter (ICD-10 - T43.505A) 1. Serotonin Syndrome - The patient was diagnosed with serotonin syndrome after starting sertraline. Sertraline has been discontinued, and the patient's symptoms have improved. No further intervention is needed for serotonin syndrome at this time. 2. Tardive Dyskinesia - The patient exhibits symptoms consistent with tardive dyskinesia, history of exposure to antipsychotic medications. -AIMS Scale completed, score 12 Plan: - Start Ingrezza 40 mg for tardive dyskinesia. - Schedule a follow-up appointment in two weeks to assess the response to Ingrezza. 3. Bipolar Disorder - The patient is currently on lamotrigine 75 mg twice a day, which is insufficient for mood stabilization. Plan: - Increase lamotrigine to 150 mg twice a day. - Monitor mood symptoms and adjust medications as needed. - Avoid antipsychotics if possible, but consider reintroducing Caplyta if necessary after the acute phase. 4. Anxiety and Sleep Disturbance - The patient is currently tapering off lorazepam, which may be contributing to anxiety and sleep disturbances. Plan: - Continue the lorazepam taper as prescribed. - Monitor anxiety and sleep symptoms during follow-up appointments. 5. Preconception Care - The patient is trying to conceive and has been advised to take folic acid. Plan: - Continue taking folic acid as recommended. - Monitor for and adjust medications as needed during . 6. Possible Seizure Disorder - The patient has a history of possible seizure-like episodes, but no definitive diagnosis has been made. Plan: - Refer the patient to a neurologist for further evaluation and possible EEG and MRI. - Monitor for any new seizure-like symptoms during follow-up appointments. 7. Medication Interactions - The patient has a history of using THC, which may interfere with the metabolism of other medications and exacerbate anxiety and depression symptoms. Plan: - Advise the patient to avoid THC and other substances that may interact with medications. - Monitor for any changes in symptoms or medication effectiveness during follow-up appointments. 06/03/2024 Drug induced subacute dyskinesia (ICD-10 - G24.01) Electronic Prior Authorization was requested for Ingrezza 40 MG Capsule. Provider can order medication once approval received., Tardive Dyskinesia (TD): Care Instructions material was published 1. Tardive dyskinesia: - Patient reports improvement in abnormal movements, with residual mouth movements and occasional jerks. No significant impact on daily functioning. Plan: - Increase Ingrezza to 80 mg daily to address residual symptoms. - Monitor for further improvement or side effects. - Follow up in one month. 2. Anxiety and stress: - Patient experiences increased abnormal movements during periods of anxiety and stress, particularly at the gym. Plan: - Encourage continued engagement in stress-reducing activities such as hot yoga and attending yazidi. - Consider referral to a therapist for additional support if needed. 3. Mood stability (bipolar disorder): - Patient reports improved mood with Lamotrigine 150 mg daily, with only one mood swing in the past couple of weeks. Plan: - Continue Lamotrigine at the current dose. - Monitor for mood stability and side effects. - Follow up in one month. 4. Seasonal depression: - Patient experiences increased depressive symptoms during the winter months. Plan: - Monitor for worsening of symptoms during the upcoming winter season. - Consider adjusting medication or adding additional support as needed. 5. Vivid, nightmarish dreams: - Patient reports experiencing vivid, nightmarish dreams after starting Ingrezza, but not recently. Plan: - Monitor for recurrence of vivid dreams. - If they persist or worsen, consider evaluating for potential medication side effects or other contributing factors. 6. Medication management: - Patient is currently taking Ingrezza and Lamotrigine for mood stability and abnormal movements. Plan: - Increase Ingrezza to 80 mg daily. - Continue Lamotrigine at 150 mg daily. - Coordinate with pharmacy for Ingrezza prescription. - Follow up in one month to assess medication effectiveness and side effects. 07/01/2024 Cannabis use, uncomplicated (ICD-10 - F12.90) 1. Tardive Dyskinesia: - Patient reports improvement in abnormal movements with Ingrezza. Tics and movements are more noticeable when sleepy or stressed. Plan: - Continue Ingrezza 80 mg daily. Refill prescription through [facility]. Monitor and reassess in one month. 2. Bipolar Disorder: - Patient reports recent manic episode lasting 2-3 weeks, followed by depressive episodes. Currently experiencing mood fluctuations and relationship stressors. Plan: - Continue Lamotrigine 150 mg twice daily. Add Caplyta 10.5 mg daily for bipolar depression. Monitor mood and side effects. Reassess in one month. 3. Lifestyle and Coping Strategies: - Patient is trying to stay active, attending the gym, and going for walks. Reports using marijuana to help with mood and winding down at night. Plan: - Encourage continued engagement in physical activity and healthy coping strategies. Monitor marijuana use and potential impact on mood and tics. Reassess in one month. 4. Follow-up: - Schedule a follow-up appointment in one month to monitor progress and adjust treatment plan as needed. 07/29/2024 Drug induced subacute dyskinesia (ICD-10 - G24.01) Continue Ingrezza 80 milligrams daily 1. Bipolar Disorder - Stable - Plan: Continue Lamotrigine 150 mg twice a day. Monitor for any changes in mood or emergence of depressive or hypomanic/manic symptoms. 2. Tardive Dyskinesia - Improving - Plan: Continue Austedo 80 mg daily. Monitor for any worsening of abnormal movements, especially when patient is very sleepy. 3. Anxiety - Stable - Plan: Maintain current treatment plan. Continue to monitor anxiety levels, particularly in work situations. 4. Diabetes and Weight Management - Plan: Continue metformin for diabetes management. Encourage regular blood sugar monitoring and adherence to a healthy diet. Recommend maintaining regular exercise routine, aiming for at least four times a week. 5. Follow-up appointment - Plan: Schedule a follow-up appointment in 2 months to reassess the patient's progress and make any necessary adjustments to the treatment plan. 07/29/2024 Cannabis use, uncomplicated (ICD-10 - F12.90) 1. Bipolar Disorder - Stable - Plan: Continue Lamotrigine 150 mg twice a day. Monitor for any changes in mood or emergence of depressive or hypomanic/manic symptoms. 2. Tardive Dyskinesia - Improving - Plan: Continue Austedo 80 mg daily. Monitor for any worsening of abnormal movements, especially when patient is very sleepy. 3. Anxiety - Stable - Plan: Maintain current treatment plan. Continue to monitor anxiety levels, particularly in work situations. 4. Diabetes and Weight Management - Plan: Continue metformin for diabetes management. Encourage regular blood sugar monitoring and adherence to a healthy diet. Recommend maintaining regular exercise routine, aiming for at least four times a week. 5. Follow-up appointment - Plan: Schedule a follow-up appointment in 2 months to reassess the patient's progress and make any necessary adjustments to the treatment plan. 06/03/2024 Adverse effect of unspecified antipsychotics and neuroleptics, initial encounter (ICD-10 - T43.505A) 1. Tardive dyskinesia: - Patient reports improvement in abnormal movements, with residual mouth movements and occasional jerks. No significant impact on daily functioning. Plan: - Increase Ingrezza to 80 mg daily to address residual symptoms. - Monitor for further improvement or side effects. - Follow up in one month. 2. Anxiety and stress: - Patient experiences increased abnormal movements during periods of anxiety and stress, particularly at the gym. Plan: - Encourage continued engagement in stress-reducing activities such as hot yoga and attending yazidi. - Consider referral to a therapist for additional support if needed. 3. Mood stability (bipolar disorder): - Patient reports improved mood with Lamotrigine 150 mg daily, with only one mood swing in the past couple of weeks. Plan: - Continue Lamotrigine at the current dose. - Monitor for mood stability and side effects. - Follow up in one month. 4. Seasonal depression: - Patient experiences increased depressive symptoms during the winter months. Plan: - Monitor for worsening of symptoms during the upcoming winter season. - Consider adjusting medication or adding additional support as needed. 5. Vivid, nightmarish dreams: - Patient reports experiencing vivid, nightmarish dreams after starting Ingrezza, but not recently. Plan: - Monitor for recurrence of vivid dreams. - If they persist or worsen, consider evaluating for potential medication side effects or other contributing factors. 6. Medication management: - Patient is currently taking Ingrezza and Lamotrigine for mood stability and abnormal movements. Plan: - Increase Ingrezza to 80 mg daily. - Continue Lamotrigine at 150 mg daily. - Coordinate with pharmacy for Ingrezza prescription. - Follow up in one month to assess medication effectiveness and side effects. 10/07/2024 Cannabis use, uncomplicated (ICD-10 - F12.90) 1. Seasonal depression: - Patient reports feeling lazy, depressed, and low motivation. Plan: - Add bupropion XL 150 mg every morning to help with energy, motivation, and mood. - Monitor for improvement in depressive symptoms. 2. Tardive dyskinesia: - Patient reports improvement in abnormal movements with Ingrezza and lamotrigine. Plan: - Continue Ingrezza and lamotrigine as prescribed. - Monitor for any recurrence of abnormal movements. 3. PMDD: - Patient reports recent period and possible exacerbation of mood symptoms. Plan: - Monitor mood symptoms in relation to menstrual cycle. - Consider further evaluation and treatment if PMDD is confirmed. 4. Job-related stress: - Patient reports high stress at work and therapist's recommendation to find a new job. Plan: - Encourage patient to continue therapy. - Explore options for improving work-life balance or finding a more suitable job. 5. Cannabinoid use: - Patient reports using THC occasionally for relaxation and motivation. Plan: - Caution patient about the potential long-term effects of THC on mood and depression. - Encourage patient to monitor their use and consider alternative coping strategies. 11/04/2024 Cannabis use, uncomplicated (ICD-10 - F12.90) 11/04/2024 Other 1. Major Depressive Disorder: - Patient reports less sadness but still experiencing lack of motivation and interest in activities. - No suicidal thoughts or self-harm reported. - Currently on Bupropion 150 mg and Lamotrigine 150 mg. Plan: - Increase Bupropion to 300 mg XL daily in the morning. - Continue Lamotrigine 150 mg daily. - Monitor patient's mood and response to the increased Bupropion dosage. - Schedule a follow-up appointment in 4 weeks to assess progress and make any necessary adjustments. 2. Tardive Dyskinesia: - Patient reports no noticeable abnormal movements. - Currently on Ingrezza 80 mg. Plan: - Continue Ingrezza 80 mg daily. - Monitor for any signs of abnormal movements or side effects. - Schedule a follow-up appointment in 4 weeks to assess progress and make any necessary adjustments. 3. Premenstrual Dysphoric Disorder (PMDD): - Patient reports irritability and mood swings during her menstrual period. Plan: - Monitor patient's mood and symptoms during her menstrual cycle. - Consider discussing non-pharmacolog ical interventions for managing PMDD symptoms, such as lifestyle changes and stress reduction techniques, during the next visit. 4. General Health and Well-being: - Patient expresses concerns about aging and maintaining good health. Plan: - Encourage patient to engage in regular physical activity and maintain a balanced diet. - Discuss the importance of self-care and stress management in maintaining overall health and well-being. - Schedule a follow-up appointment in 4 weeks to assess progress and provide additional support as needed. 12/02/2024 Other 1. Major Depressive Disorder: - Patient reports increased sadness and depressive symptoms in the past 2 weeks. - Anhedonia and flat affect persist. - Bupropion 300 mg not providing significant improvement. Plan: - Discontinue Bupropion; taper by taking 150 mg for the remaining 4 doses. - Initiate Duloxetine (Cymbalta) 30 mg daily for 2 weeks, then increase to 60 mg daily. - Instruct patient to take Duloxetine in the morning, unless it causes sleepiness, in which case switch to evening dosing. - Follow up in 1 month to assess response to Duloxetine. 2. Binge Eating Disorder: - Patient reports no recent binge episodes. - Currently seeing a dietitian for nutritional guidance. Plan: - Encourage continued adherence to dietitian's recommendations . - Monitor for any changes in eating behaviors during follow-up visits. 3. Tardive Dyskinesia: - Patient currently on Ingrezza (valbenazine) with no reported issues. Plan: - Ensure patient has a sufficient supply of Ingrezza and is able to coordinate shipments with the specialty pharmacy. - Continue monitoring for any changes in movement symptoms during follow-up visits. 4. Sleep disturbances: - Patient reports increased sleep and decreased energy. Plan: - Monitor sleep patterns and energy levels after initiating Duloxetine, as it may have an activating effect. - Encourage patient to maintain a consistent sleep schedule and engage in regular physical activity, as tolerated. 5. Family history of Bipolar Disorder: - Patient's sister has a positive response to Lamotrigine and Cymbalta. Plan: - Consider family history when assessing patient's response to Duloxetine and future treatment options. - Monitor for any signs of mood instability during follow-up visits. Plan Of Treatment Pending Test Test Name Order Date ALT (SGPT), AST (SGOT) 05/12/2024 COMPREHENSIVE METABOLIC PANEL (25498) CREATINE KINASE, TOTAL (374) 05/12/2024 CBC (H/H, RBC, INDICES, WBC, PLT) (1759) 05/12/2024 Insurance Providers Payer Name Payer Address Payer Phone Subscriber Number Group Number Insured Name Patient Relationship to Insured Coverage Start Date Coverage End Date [facility] [address] [place] [phone] [id number] DEBORAH VARMA Self - patient is the insured Medical (General) History Medical History History ICD Code Problems: Bipolar affective disorder, cu rrent episode depression Generalized anxiety disorder , Surgical History Surgery Date(Month/Year) Other 07/18/2022 Hospitalization History Reason Date(Month/Year) [facility] 2023
--- OUTSIDE RECORDS SUMMARY | 2025-05-04 20:00 | XMS_ITS | Clinical Summary ---
Author Organization [facility] Address [address] [place] [address] Care Team Providers Care Development Mgr Name Role Phone Deep Allison MD Primary Care Provider [phone] Source Comments [facility],non-owned Affiliates and Associated Physician Practices is amultiple site organization consisting of ambulatory clinics and hospital sitesin [place], [place], [place] and [place]. This disclosure is being madepursuant to the Care Everywhere program and may not contain all information available regarding this patient. Last updated 18.[facility] Allergies Active Allergy Reactions Criticality Noted Date Comments Amoxicillin Other,Rash Medium 1987 Sulfa Antibiotics Itching,Rash,Skin Reactions,Swelling Medium 06/07/2024 Medications * Be aware that medications may not be up to date on this document. Alwaysverify current medications with the patient. vitamin D, ergocalciferol, (Drisdol) 1.25 MG (09180 UT) capsule Take 1 (one) capsule by mouth every 7 days 01/29/2024 Active FeroSul 325 (65 Fe) MG tablet Take 1 (one) tablet by mouth once daily Active metFORMIN (Glucophage) 1000 MG tablet Take 1 (one) tablet by mouth 2 times daily with morning and evening meal Active Cyanocobalamin (Vitamin B12) 1000 MCG TBCR 1 tablet Orally Once a day Active omeprazole (PriLOSEC) 40 MG capsule 08/19/2024 Active Ingrezza 80 MG CAPS TAKE 1 CAPSULE (80MG) BY MOUTH ONCE DAILY. 05/20/2024 Active lamoTRIgine (LaMICtal) 150 MG tablet Take 1 (one) tablet by mouth 2 times daily 05/20/2024 Active meloxicam (Mobic) 7.5 MG tablet TAKE 1 TABLET BY MOUTH EVERY DAY FOR JOINT PAIN FOR 30 DAYS Active Roflumilast (Zoryve) 0.15 % CREA APPLY TO THE AFFECTED AREA(S) BY TOPICAL ROUTE ONCE DAILY 01/13/2025 Active Active Problems Problem Noted Date Diagnosed Date Primary osteoarthritis of both hands 02/17/2025 Assessment & Plan (02/17/2025 3:39 PM CDT): Clinical presentation not c/w inflammatory process. Given crepitus in the knees and joint stiffness/pain in the hands, likely osteoarthritis. Although, patient is younger than average age to develop this, exam findings more indicative of OA. Elevated CRP is non-specific; hx and physical exam findings does not correlate with elevated CRP. Autoimmune panel negative. Recommend exercise and Ultrasound of hands to rule out RA Ovarian tumor of borderline malignancy, right Spasm of muscle 05/14/2024 Clonus 05/14/2024 Leukocytosis, unspecified type 05/14/2024 Seizure 05/14/2024 Hyperreflexia 05/14/2024 Serotonin syndrome 05/14/2024 Encounters Date Type Department Care Team Description 03/17/2025 11:00 AM CDT Office Visit [facility] [address] [place] [address] Adryan Bosch MD Ovarian tumor of borderline malignancy, right (Primary Dx) 03/17/2025 10:15 AM CDT Procedure visit [facility] [address] [place] [address] Left ovarian cyst ; Ovarian tumor of borderline malignancy, right 03/17/2025 Travel 02/17/2025 10:20 AM CDT Office Visit [facility] - Rheumatology [address], [address] [place] [address] Ken Anders, DO Primary osteoarthritis of both hands (Primary Dx) 02/17/2025 Orders Only [facility] - Rheumatology [address], [address] [place] [id number] Ken Anders, DO Bilateral finger arthralgia from Last 3 Months Family History Medical History Relation Name Comments Cancer - Colon Maternal Aunt 1 Cancer - Stomach Maternal Aunt 2 Cancer - Lung Maternal Uncle 1 Cancer Maternal Uncle 2 brain Cancer - Ovarian Paternal Aunt Relation Name Status Comments Maternal Aunt 1 Alive Maternal Aunt 2 Alive Maternal Uncle 1 Alive Maternal Uncle 2 Alive Paternal Aunt Alive Social History Tobacco Use Types Packs/Day Years Used Date Smoking Tobacco: Never Tobacco Cessation:Counseling Given: Not Answered Alcohol Use Standard Drinks/Week Comments Yes 0 (1 standard drink = 0.6 oz pur e alcohol) AUDIT-C Answer Date Recorded Q1: How often do you have a drink containing alc ohol? Monthly or less 05/14/2024 Q2: How many drinks containi ng alcohol do you have on a typical day when you are drinking? 1 or 2 05/14/2024 Q3: How often do you have si x or more drinks on one occasion? Never 05/14/2024 Overall Financial Resource Strain (CARDIA) Answe r Date Recorded How hard is it for you to pa y for the very basics like food, housing, medical care, and heating? Not very hard 05/14/2024 PHQ-2 Answer Date Recorded Patient Health Questionnaire-2 Score 4 03/14/2025 [facility] - Occupational Stress Questionnaire Answer Date Recorded Do you feel stress - tense, restless, nervous, or anxious, or unable to sleep at night because your mind is troubled all the time - these days? To some extent 05/14/2024 Hunger Vital Sign Answer Date Recorded Within the past 12 months, y ou worried that your food would run out before you got the money to buy more. Never true 05/14/20 24 Within the past 12 months, t he food you bought just didn't last and you didn't have money to get more. Never true 05/14/2024 PRAPARE - Transportation Answer Date Re corded In the past 12 months, has l ack of transportation kept you from medical appointments or from getting medications? No 04/30 In the past 12 months, has l ack of transportation kept you from meetings, work, or from getting things needed for daily living? No 05/14/2024 Housing Stability Vital Sign Answer Tonio e Recorded In the last 12 months, was t here a time when you were not able to pay the mortgage or rent on time? No 05/14/2024 In the last 12 months, how many places have you lived? 1 05/14/2024 In the last 12 months, was t here a time when you did not have a steady place to sleep or slept in a fpc (including now)? No 05/14/2024 Comments No Sex and Gender Information Value Date Recorded Sex Assigned at Female 05/18/2024 12:11 AM CDT Legal Sex Female 1:09 PM CDT Gender Identity Female 05/18/2024 12:11 AM CDT Sexual Orientation Straight 05/18/2024 12 :11 AM CDT Last Filed Vital Signs Vital Sign Reading Time Taken Comments Blood Pressure 124/86 03/17/2025 10:45 AM CDT Pulse 89 02/17/2025 10:30 AM CDT Temperature 36.1 C (97 F) 02/17/2025 10:30 AM CDT Respiratory Rate 16 02/17/2025 10:3 0 AM CDT Oxygen Saturation 97% 02/17/2025 10: 30 AM CDT Inhaled Oxygen Concentration - - Weight 96.5 kg (212 lb 12.8 oz) 025 10:45 AM CDT Height 172.7 cm (5' 8) 03/17/2025 10:4 5 AM CDT Body Mass Index 32.36 03/17/2025 10:45 AM CDT Plan of Treatment Health Maintenance Due Date Last Done Comments HIV SCREENING 2002 HEPATITIS C SCREENING 10/28/2005 DTAP/TDAP/TD VACCINES (1 - Tdap) 2006 HEPATITIS B VACCINE (1 of 3 - 19+ 3-dose series) 2006 PNEUMOCOCCAL VACCINE (1 of 2 - PCV) 2006 HPV VACCINE (1 - 3-dose SCDM series) 2014 COVID-19 VACCINE (2023-2 5 season) 2024 11/29/2020, 11/01/2020 INFLUENZA VACCINE (#1) 2025 08/15/2018 PAP SMEAR 04/22/2027 04/22/2024, 04/22/2024 ZOSTER VACCINE (1 of 2) 2037 DEPRESSION SCREENING Completed 02/17/2025, 09/09/2024 HIB VACCINE Aged Out No longer eligi ble based on patient's age to complete this topic MENINGOCOCCAL (Group B) VACCINE SHARED DECISION-MAKING Aged Out No longer eligible based on patient's age to complete this topic MENINGOCOCCAL GROUPS A/C/Y/W VACCINE Aged Out No longer eligible b ased on patient's age to complete this topic Procedures Procedure Name Priority Date/Time Associated Diagnosis Comments NON-OB PELVIC SONOGRAM Routine 03/17/2025 10:14 AM CDT Left ovarian cyst Ovarian tumor of borderline malignancy, right from Last 3 Months Results * NON-OB PELVIC SONOGRAM (03/17/2025 10:14 AM CDT) Linked Results Indication ======== Hx of ovarian cysts Irregular menses Pelvic pain History ====== General History S/P a robotic right ovarian cystectomy in 08/2022 mucinous borderline tumor pelvic US on 03/04/2024 demonstrated a left ovarian cyst with a septation which is new, measuring 3.7 x 3.0 x 3.4 cm. A second septated cyst measuring 2.1 x 1.7 x 1.9 cm was also noted US on 05/06/24 -normal Assessment LMP on 02/07/2025. Day of cycle 39 Method ====== Transvaginal ultrasound. View: Sufficient Uterus ====== Appears normal. Size 100 mm x 50 mm x 48 mm. Vol 127.3 cm Position: anteverted Malformations: none Myometrium: normal Endometrium: Measures upper limits of normal; Irregular with cystic changes . Endometrial thickness, total 14.0 mm Cervix details: cystic lesions identified suggesting superficial Nabothian cysts No fibroids identified Fibroid(s) 1. Size 16 mm x 23 mm x 20 mm. Mean 19.7 mm. Vol 3.887 cm . Right latera inferior; Intramural 2. Size 11 mm x 9 mm x 10 mm. Mean 9.9 mm. Vol 0.503 cm . Posterior body; Intramural 3. Size 11 mm x 13 mm x 12 mm. Mean 12.0 mm. Vol 0.898 cm . Inferior left; (degenerating) Intramural; appears to impinge upon the endometrial cavity Polyp(s) 1. Size 4 mm x 4 mm x 4 mm. Mean 4.0 mm 2. Size 9 mm x 6 mm x 7 mm. Mean 7.3 mm Right Ovary ========= Normal. Size 44 mm x 18 mm x 19 mm. Vol 8.2 cm Cyst(s) Size 20.1 mm x 12.8 mm x 18.4 mm. Mean 17.1 mm. Vol 2.479 cm . Simple Left Ovary ======== Normal. Size 35 mm x 27 mm x 33 mm. Vol 16.5 cm Cyst(s) Size 23.0 mm x 22.6 mm x 26.1 mm. Mean 23.9 mm. Vol 7.104 cm . Simple cyst [place] ========= No free fluid visualized Impression ========= Uterine fibroids Irregular endometrial cavity with cystic changes Suspected polyps Bilateral simple ovarian cysts Coding ====== Procedures [id number]: US Transvaginal Non OB [facility] Pumant PACS Anatomical Region Laterality Modality Other 03/17/2025 10:1 4 AM CDT Adryan Bosch MD [facility] ORDERABLES Edited Result - Final from Last [address] [place] [address] Advance Directives * Full Code (Latest Code Status on File) Date Activated Date Inactivated Comments 05/14/2024 7:40 AM 05/16/2024 12:22 PM Care Teams Development Mgr Relationship Specialty Start Date End Date Deep Allison MD [address] [place] [address] PCP - General Internal Medicine 04/08/24
--- OUTSIDE RECORDS SUMMARY | 2025-05-04 20:00 | XMS_ITS | Clinical Summary ---
Author Organization [facility] Address [address] [place] [address] Care Team Providers Care Library Aide Name Role Phone Deep Allison MD Primary Care Provider [phone] Javy Zhong MD Unavailable [phone] Allergies Active Allergy Reactions Criticality Noted Date Comments Amoxicillin Rash,Hives Medium 1987 Medications metFORMIN (GLUCOPHAGE) 1,000 mg tablet Take 1,000 mg by mouth 2 (two) times a day with meals Active omeprazole (PriLOSEC) 40 mg capsule Take 40 mg by mouth daily Active lamoTRIgine (LaMICtal) 100 mg disintegrating tablet Take 100 mg by mouth 2 (two) times a day 1.5 tabs twice daily Active ARIPiprazole (ABILIFY) 20 mg tablet Take 20 mg by mouth daily 1/2 tab daily Active ferrous sulfate 325 mg (65 mg of elemental iron) tabletIndications: Iron Deficiency Anemia Take 65 mg of elemental iron by mouth daily with breakfast Active cholecalciferol (VITAMIN D-3) 5,000 unit tablet Take 5,000 Units by mouth every morning Active cyanocobalamin, vitamin B-12, (VITAMIN B-12 ORAL) Take by mouth Active Active Problems Problem Noted Date Diagnosed Date Cyst of ovary 09/19/2022 Pulmonary histoplasmosis 09/19/2022 Vitamin B12 deficiency (non anemic) 09/19/2022 Vitamin D deficiency 09/19/2022 Gastroesophageal reflux disease 09/03/2022 Derangement of knee 08/27/2022 Pain in limb 08/27/2022 Anxiety 01/04/2021 Bipolar disorder 01/04/2021 Depressive disorder 01/04/2021 Diabetes mellitus 01/04/2021 Immunizations Immunization Administration Dates Next Due Influenza, Quadrivalent, Spl it, Preservative Free, Intramuscular 08/15/2018 Td, Not Adsorbed 05/07/2004 Surgical History Surgery Date Site/Laterality Comments OVARIAN CYSTECTOMY 09/30/2021 - 09/29/2022 Right Medical History Medical History Date Comments Diabetes (HCC) Family History Medical History Relation Name Comments Clotting disorder Maternal Grandfather Diabetes Mother Colon cancer Mother's Sister Diabetes Sister Pre-diabetic Relation Name Status Comments Brother 1 Alive Brother 2 Alive Father Alive Maternal Grandfather Mother Alive Mother's Sister Sister Alive Social History Tobacco Use Types Packs/Day Years Used Date Smoking Tobacco: Never Smokeless Tobacco: Never Tobacco Cessation:Counseling Given: Not Answered Personal Safety Answer Date Recorded Getting School Help Needed Not on file 10/03 Comments Unknown Sex and Gender Information Value Date Recorded Sex Assigned at Not on file Legal Sex Female 2:02 PM CDT Gender Identity Not on file Sexual Orientation Not on file Obstetrics History Para Term AB IAB SAB Ectopic Multiple Livin g Live Births 1 1 1 Date Outcome GA Total Labor Labor/2nd/3rd Weight Sex Type Anes PTL Rupal A1 A5 Name Clin SAB Last Filed Vital Signs Vital Sign Reading Time Taken Comments Blood Pressure 120/83 12/12/2022 3:24 PM CDT Pulse 79 12/12/2022 3:24 PM CDT Temperature 36.9 C (98.5 F) 12/12/2022 3:24 PM CDT Respiratory Rate 16 12/12/2022 3:24 PM CDT Oxygen Saturation 100% 12/12/2022 3:24 PM CDT Inhaled Oxygen Concentration - - Weight 96.1 kg (211 lb 12.8 oz) 023 3:24 PM CDT Height 174 cm (5' 8.5) 12/12/2022 3:24 PM CDT Body Mass Index 31.73 12/12/2022 3:24 PM CDT Plan of Treatment Health Maintenance Due Date Last Done Comments Albumin Creatinine Ratio, Urine 1987 Cervical Cancer Screening 1987 Depression Screening 1987 Hemoglobin A1C 1987 Hepatitis C Screening 1987 eGFR 1987 Dilated Eye Exam 1987 Foot Exam 1987 Lipid Panel 1987 Varicella Vaccines (1 of 2 - 13+ 2-dose series) 2000 DTaP/Tdap/Td Vaccine (1 - Tdap) 05/08/2004 4 Hepatitis B Screening 2005 Regular Well Visit/Exam 18-64 2005 Pneumococcal vaccine <65 (1 of 2 - PCV) 2006 HPV Vaccines (1 - 3-dose SCDM series) 2014 Covid-19 Vaccine ( - season) 05/31/202410/2020, 11/01/2020 Influenza Vaccine (#1) 2025 08/15/2018 Insurance [facility] CHOICE PLUS Member Subscriber Plan / Payer (Ef fective 2023-Present) Name:Chelo Randhawa Relation to Subscriber:Self Name:Chelo Randhawa Payer ID:[id number] (NAIC) Type:[facility] HMO/PPO Address: [place] [id number] [place] [id number] [facility] CHOICE PLUS Care Teams Library Aide Relationship Specialty Start Date End Date Deep Allison MD PCP - General Internal Medicine 06/13/22 Javy Zhong MD [address] [place] [address] Referring Physician Obstetrics and Gynecology 08/09/22
--- OUTSIDE RECORDS SUMMARY | 2025-05-04 20:00 | XMS_ITS | Referral Summary ---
Author Organization [facility] Address [address] [place] [address] Care Team Providers Care Director Medical Economics Name Role Phone Deep Allison MD Primary Care Provider [phone] Javy Zhong MD Unavailable [phone] Allergies Active Allergy Reactions Criticality Noted Date [...] Free, Intramuscular 08/15/2018 Td, Not Adsorbed 05/07/2004 Social History Tobacco Use Types Packs/Day Years [...] on file Sexual Orientation Not on file Last Filed Vital Signs Vital Sign Reading Time Taken Comments Blood Pressure 120/83 12/12/2022 3:24 PM CDT Pulse 79 12/12/2022 3:24 PM CDT Temperature 36.9 C (98.5 F) 12/12/2022 3:24 PM CDT Respiratory Rate 16 12/12/2022 3:24 PM CDT Oxygen Saturation 100% 12/12/2022 3:24 PM CDT Inhaled Oxygen Concentration - - Weight 96.1 kg (211 lb 12.8 oz) 12/12/2022 3:24 PM CDT Height 174 cm (5' 8.5) 12/12/2022 3:24 PM CDT Body Mass Index 31.73 12/12/2022 3:24 PM CDT Plan of Treatment Not on file Insurance [facility] CHOICE PLUS [facility] CHOICE PLUS Care Teams Director Medical Economics Relationship Specialty Start Date End Date Deep Allison MD PCP - General Internal Medicine 06/13/22 Javy Zhong MD [address] [place] [address] Referring Physician Obstetrics and Gynecology 08/09/22
[2025-05-04 20:05] VITALS: BP 151/101; PULSE 144; RESP 20; TEMP 36.3; O2SAT 100
--- NOTE | 2025-05-04 20:10 | ECG_ITS ---
Test Date: 2025-05-04 20:14:12 Measurements Intervals [place] Rate: 135 P: 41 ID: [id number] QRS: -19 QRSD: 89 T: 19 QT: 373 QTc: 559 Interpretive Statements SINUS TACHYCARDIA DELAYED PRECORDIAL R/S TRANSITION VOLTAGE CRITERIA FOR LVH MINIMAL Q WAVES- HIGH LATERAL LEADS BORDERLINE T WAVE ABNORMALITY- ANT/INF LEADS BASELINE ARTIFACT- I, II, AVR ABNORMAL ECG No previous ECG available for comparison Electronically Signed On 05-04-2025 20:58:41 CDT by Malcolm Rincon D.O.
[2025-05-04] MEDS: SODIUM CHLORIDE 0.9% IV 1,000 ML 999 ML IV CONT ×2 (20:36→22:01)
[2025-05-04 20:37] LABS: Hematocrit 33.4 % (37.0-47.0); Hemoglobin 11.2 g/dL (12.0-15.0); Immature Granulocyte Percent A 1.2 % (0-0.5); Lymphocytes Absolute Auto 2.83 K/mm3 (0.9-3.2); Mean Corpuscular HGB Conc 33.5 g/dl (32-36); Mean Corpuscular Hemoglobin 27.9 pg (26-34); Mean Corpuscular Volume 83.1 fl (80-100); Nucleated Red Blood Cells Absolute Auto 0.000 K/mm3 (0.0-0.012); Nucleated Red Blood Cells Perc 0.0 % (0.0-0.2); Platelet Count Result 291 k/mm3 (150-375); Red Blood Count 4.02 M/mm3 (4.2-5.4); White Blood Count 11.9 K/mm3 (4.5-10.0)
[2025-05-04 20:51] LABS: INR 1.0; Prothrombin Time 13.1 Seconds (11.1-14.7)
[2025-05-04 20:52] LABS: Alanine Aminotransferase 51 U/L (6-35); Albumin Level 4.6 g/dL (3.5-5.1); Alkaline Phosphatase 96 U/L (38-126); Anion Gap 11 mmol/L (4-12); Aspartate Amino Transferase 48 U/L (14-36); Bilirubin,Total 0.3 mg/dL (0.2-1.3); Blood Urea Nitrogen 13 mg/dL (7-17); Calcium 9.0 mg/dL (8.4-10.2); Carbon Dioxide 20 mmol/L (22-30); Chloride 103 mmol/L (98-107); Estimated CRCL calculation 111 ml/min; Estimated Glomerular Filt Rate > 60; Glucose 168 mg/dL (65-110); Partial Thromboplastin Time 24.2 Seconds (22.3-36.8); Potassium 3.8 mmol/L (3.4-5.0); Sodium 134 mmol/L (137-145); Total Protein 7.3 g/dL (6.3-8.2)
--- NOTE | 2025-05-04 21:03 | ED_ITS ---
HPI - Female Genitourinary General Chief complaint: Vaginal Bleeding Stated complaint: heavy menstrual bleed, clots Time Seen by Provider: 05/04/25 20:17 Source: patient Mode of arrival: ambulatory Limitations: no limitations History of Present Illness HPI Narrative: 39-year-old female Patient presents with report of heavy menstrual bleeding. Her last menstrual period started on 04/24/2025 and she notes that she has been having heavy bleeding since Saturday. She has a history of heavy menses although not with every menstrual cycle. She notes that she will have a heavy cycles followed by 1 that is not so bad. She has a history of anemia and is on p.o. ferrous sulfate b.i.d. but has never required iron infusions or blood transfusion. She has a history of PCOS and irregular periods. She states she had irregular periods from December to February in which she had bleeding for 3 weeks and then spotting and bleeding. For this she was placed on control Slynd for which she took the last dose of the first pack today. She has a history of touch removal from her right ovary but still retains the fallopian tube and ovary on this side. Also has a history of fibroids and polyps. She has some abdominal cramping. She notes that this. Is a heavier than normal as she has started passing palm sized clots today. Her menstrual cycle typically last 7 days. She is sexually active with men and has been monogamous with her boyfriend of 19 and half years. She feels tired and lightheaded but denies any shortness of breath. Her OB Gyne is Dr. Alma Huang at [facility]. She was treated with antibiotic for a chlamydial sexually transmitted infection 20 years ago. She has been using 2-3 tampons/pads an hour since Saturday but today was the first day she had the large clots. Patient notes that she does experience some gum bleeding when she brushes her teeth/flosses. Has never seen a scientific laboratory supervisor. Related Data Home Medications ?Medication ?Instructions ?Recorded ?Confirmed ?Last Taken ?Type lamotrigine 100 mg tablet 150 mg PO BID 07/11/22 05/05/25 Unknown History omeprazole 40 mg capsule,delayed 40 mg PO DAILY 05/06/24 05/05/25 Unknown History release valbenazine 80 mg capsule 80 mg PO HS 09/16/24 05/05/25 Unknown History (Ingrezza) meloxicam 7.5 mg tablet 7.5 mg PO DAILY PRN pain 04/07/25 05/05/25 Unknown History atomoxetine 40 mg capsule 40 mg PO DAILY 05/05/25 05/05/25 Unknown History ergocalciferol (vitamin D2) 1,250 1,250 mcg PO WEEKLY 05/05/25 05/05/25 Unknown History mcg (50,000 unit) capsule Allergies Allergy/AdvReac Type Severity Reaction Status Date / Time amoxicillin Allergy Intermediate HIVES Verified 04/07/25 14:07 Sulfa (Sulfonamide Allergy Hives Verified 04/07/25 14:07 Antibiotics) [facility] Past Medical History Medical History Uterine polyp Fibroid uterus PCOS (polycystic ovarian syndrome) Depression Anxiety Bipolar disorder Diabetes type 2, controlled GERD (gastroesophageal reflux disease) Elevated liver enzymes Diarrhea Epigastric pain Family History Family History Other Cervical cancer Lung cancer Grandparent Diabetes mellitus Heart failure Grandparent Diabetes mellitus Mother Diabetes mellitus Father DVT (deep venous thrombosis) Social History Social History Smoking status: Never smoker Alcohol intake: current Drinks per week: 2 Alcohol use details: RARE Substance use: current Substance use type: marijuana Other substance usage details: THC gummies Lack of Transportation: No Lack of Food: Never True Current Housing: I Have Housing Concerned About Future Housing: No Difficulty Paying Gas/Electric Bills: No Difficulty Paying for Meds: No Currently Unemployed: No Education: High School Diploma/GED Difficulty w/ Childcare or Family Care: No Living arrangements: with family Gender identity (if verbalized by the patient): Female Sexual Orientation (if Verbalized by the Patient): Straight or Heterosexual Spiritual care concerns: No Exam 2 Narrative: GENERAL: Well-appearing, well-nourished, and in no acute distress. HEAD: Normocephalic, atraumatic. EYES: Non injected, non icteric ENT: Nares clear, no rhinorrhea or epistaxis. Gross auditory acuity intact. NECK: Supple. No meningismus. CHEST: Speaking in full sentences. No respiratory distress. HEART:Tachycardic rate and rhythm. . ABDOMEN: Obese but Soft, nondistended. No rigidity or guarding. Not peritoneal EXTREMITIES: Normal range of motion. No lower extremity edema. : Patient has blood in the vaginal vault and pulling around fornices. Os has blood coming out of it. Bimanual exam with no cervical motion tenderness although she does have mild adnexal tenderness bilaterally. SKIN: Warm, dry, no rash. NEURO: No focal deficits. Alert and oriented. Answering questions. Following commands. Normal speech without aphasia or dysarthria. PSYCH: Normal mood and affect. Course Vital Signs Vital signs: Vital Signs Temperature 97.3 F L 05/04/25 20:05 Pulse Rate 144 H 05/04/25 20:05 Respiratory Rate 20 05/04/25 20:05 Blood Pressure 151/101 H 05/04/25 20:05 Pulse Oximetry 100 05/04/25 20:05 Oxygen Delivery Room Air 05/04/25 20:05 Temperature 98.8 F 05/05/25 14:00 Pulse Rate 97 05/05/25 14:00 Respiratory Rate 18 05/05/25 14:00 Blood Pressure 110/60 05/05/25 14:00 Pulse Oximetry 98 05/05/25 14:00 Oxygen Delivery Room Air 05/05/25 08:43 MDM - Female Genitourinary MDM Narrative Medical decision making narrative: Patient is a 39-year-old female who presents with heavy vaginal bleeding. Her menstrual cycle started on 04/24/2025 and has been heavy, saturating multiple tampons/pads including sometimes 2-3 per hour. Today she started passing palm sized clots. She is feeling lightheaded and tired. History of occasionally heavy menstrual cycles but also irregular bleeding. History of PCOS fibroids. In the emergency department she is afebrile vital signs notable for hypertension in significant tachycardia. 1 L IV fluids ordered. She has a mild leukocytosis. She is anemic with a 2.7 g drop from August of 2024. Platelets normal. Hyperglycemia without anion gap acidosis. She has elevated AST and ALT although these are chronic. After obtaining the patient's history and performing a physical exam, a spot urine was obtained which was negative for . The patient had a pelvic exam performed, patient's bleeding thought to be secondary to fibroids. Unlikely hemorrhagic cystitis: Grossly visualized blood per vagina. Urine is grossly bloody but otherwise without signs of infection. Possibly PCOS as she has a history of this. Will obtain TSH as well. Possibly coagulopathy (vWD, ITP): Platelets normal but possibly other mucosal bleeding. Unlikely traumatic vaginal bleeding: no history of instrumentation; pelvic exam shows no signs of trauma, no foreign body visualized. Unlikely PID: monogamous with sexual partner also believed to be monogamous, though history of prior treated STD 2 decades ago; no Chandelier sign but mild bilateral adnexal tenderness. Unlikely other infectious etiology: nonseptic appearance Repeat (4 Hr H/H) continues to downtrend. Discussed with Dr Alma Huang who does recommend starting PO TID TXA 1300mg and repeating CBC in the morning. COncurs with an initial dose now of 1300mg IV. I did order the IV dose but was unable to initially pull up the p.o. dosing. Discussed with pharmacy [facility] who was able to find it off of formulary and they will enter in this dosing (two 650mg ), TID dosing to start 9am he believes. Patient is updated and verifies understanding. Will be NPO given the possibility of intervention, i.e. D&C, if more conservative measures/medical management is not sufficient. Lab Data Attestation: I reviewed the patient's lab results. 05/05/25 04:49 05/04/25 20:33 Labs: Lab Results 05/04/25 05/04/25 05/04/25 Range/Units 20:32 20:33 21:25 WBC 11.9 H (4.5-10.0) K/mm3 RBC 4.02 L (4.2-5.4) M/mm3 Hgb 11.2 L (12.0-15.0) g/dL Hct 33.4 L (37.0-47.0) % MCV 83.1 (80-100) fl MCH 27.9 (26-34) pg MCHC 33.5 (32-36) g/dl RDW 12.5 (11.5-14.5) % Plt Count 291 (150-375) k/mm3 MPV 9.4 (7.4-10.4) fl Immature Gran % (Auto) 1.2 H (0-0.5) % Neut % (Auto) 68.9 (45.5-73.1) % Lymph % (Auto) 23.8 (18.3-44.2) % Morehouse % (Auto) 4.9 (2.6-8.5) % Eos % (Auto) 0.8 (0-4.4) % Baso % (Auto) 0.4 (0.2-1.2) % Lymph # (Auto) 2.83 (0.9-3.2) K/mm3 Morehouse # (Auto) 0.6 (0.1-0.6) K/mm3 Eos # (Auto) 0.1 (0-0.3) K/mm3 Baso # (Auto) 0.1 (0.0-0.1) K/mm3 Abs Immat Gran (auto) 0.14 H (0.00-0.031) K/mm3 Absolute Neuts (auto) 8.2 H (1.3-6.7) K/mm3 Absolute Nucleated RBC 0.000 (0.0-0.012) K/mm3 Nucleated RBC % 0.0 (0.0-0.2) % PT 13.1 (11.1-14.7) Seconds INR 1.0 APTT 24.2 (22.3-36.8) Seconds Sodium 134 L (137-145) mmol/L Potassium 3.8 (3.4-5.0) mmol/L Chloride 103 (98-107) mmol/L Carbon Dioxide 20 L (22-30) mmol/L Anion Gap 11 (4-12) mmol/L BUN 13 (7-17) mg/dL Creatinine 0.72 (0.7-1.0) mg/dL Estim Creat Clear Calc 111 ml/min Estimated GFR > 60 (59 - ) Glucose 168 H (65-110) mg/dL Calcium 9.0 (8.4-10.2) mg/dL Total Bilirubin 0.3 (0.2-1.3) mg/dL AST 48 H (14-36) U/L ALT 51 H (6-35) U/L Alkaline Phosphatase 96 (38-126) U/L Total Protein 7.3 (6.3-8.2) g/dL Albumin 4.6 (3.5-5.1) g/dL TSH 3.470 (0.465-4.680) uIU/mL Prolactin Pending Urine Color Red H (Yellow) Urine Appearance Turbid H (Clear) Urine pH 5.0 (5.0-9.0) Ur Specific Orcas 1.031 (1.001-1.035) Urine Protein 3+ H (Negative) mg/dL Urine Glucose (UA) Negative (Negative) mg/dL Urine Ketones Negative (Negative) mg/dL Ur Blood (Man) 3+ H (Negative) Urine Nitrate Positive H (Negative) Urine Bilirubin 2+ H (Negative) Urine Urobilinogen 0.2 (<2.0) mg/dL Add Ur Microanalysis Reviewed Leukocyte Esterase Rfl 2+ H (Negative) LATRELL/UL Urine RBC >100 H (0-2) /hpf Urine WBC 0-5 (0-3) /hpf Ur Squamous Epith Cells Occasional (Few) /hpf Urine Bacteria 1+ /hpf Urine Casts 0-2 POC Urine HCG, Qual (Negative) C. trachomatis (PCR) Not detected (NOT DETECTE) N. gonorrhoeae (PCR) Not detected (NOT DETECTE) T. vaginalis (PCR) Not detected (NOT DETECTE) Blood Type O Positive Antibody Screen Negative 05/04/25 05/05/25 Range/Units 21:27 00:38 WBC (4.5-10.0) K/mm3 RBC (4.2-5.4) M/mm3 Hgb 9.6 L (12.0-15.0) g/dL Hct 29.1 L (37.0-47.0) % MCV (80-100) fl MCH (26-34) pg MCHC (32-36) g/dl RDW (11.5-14.5) % Plt Count (150-375) k/mm3 MPV (7.4-10.4) fl Immature Gran % (Auto) (0-0.5) % Neut % (Auto) (45.5-73.1) % Lymph % (Auto) (18.3-44.2) % Morehouse % (Auto) (2.6-8.5) % Eos % (Auto) (0-4.4) % Baso % (Auto) (0.2-1.2) % Lymph # (Auto) (0.9-3.2) K/mm3 Morehouse # (Auto) (0.1-0.6) K/mm3 Eos # (Auto) (0-0.3) K/mm3 Baso # (Auto) (0.0-0.1) K/mm3 Abs Immat Gran (auto) (0.00-0.031) K/mm3 Absolute Neuts (auto) (1.3-6.7) K/mm3 Absolute Nucleated RBC (0.0-0.012) K/mm3 Nucleated RBC % (0.0-0.2) % PT (11.1-14.7) Seconds INR APTT (22.3-36.8) Seconds Sodium (137-145) mmol/L Potassium (3.4-5.0) mmol/L Chloride (98-107) mmol/L Carbon Dioxide (22-30) mmol/L Anion Gap (4-12) mmol/L BUN (7-17) mg/dL Creatinine (0.7-1.0) mg/dL Estim Creat Clear Calc ml/min Estimated GFR (59 - ) Glucose (65-110) mg/dL Calcium (8.4-10.2) mg/dL Total Bilirubin (0.2-1.3) mg/dL AST (14-36) U/L ALT (6-35) U/L Alkaline Phosphatase (38-126) U/L Total Protein (6.3-8.2) g/dL Albumin (3.5-5.1) g/dL TSH (0.465-4.680) uIU/mL Prolactin Urine Color (Yellow) Urine Appearance (Clear) Urine pH (5.0-9.0) Ur Specific Orcas (1.001-1.035) Urine Protein (Negative) mg/dL Urine Glucose (UA) (Negative) mg/dL Urine Ketones (Negative) mg/dL Ur Blood (Man) (Negative) Urine Nitrate (Negative) Urine Bilirubin (Negative) Urine Urobilinogen (<2.0) mg/dL Add Ur Microanalysis Leukocyte Esterase Rfl (Negative) LATRELL/UL Urine RBC (0-2) /hpf Urine WBC (0-3) /hpf Ur Squamous Epith Cells (Few) /hpf Urine Bacteria /hpf Urine Casts POC Urine HCG, Qual Negative (Negative) C. trachomatis (PCR) (NOT DETECTE) N. gonorrhoeae (PCR) (NOT DETECTE) T. vaginalis (PCR) (NOT DETECTE) Blood Type Antibody Screen Imaging Data Radiologist's impression: Impressions Pelvis Ultrasound 05/04/25 23:00 IMPRESSION: Fibroid uterus. Otherwise, unremarkable sonographic evaluation of the female pelvis, as detailed above. ECG Data EKG #1: Attestation: I personally reviewed and interpreted this ECG as follows: ECG completion date: 05/04/25 ECG completion time: 20:14 Interpretation: Sinus tachycardia at a rate of 135 beats per minute. IL interval 147. QRS 89. QT/QTC 373/559. Good R-wave progression across the precordial leads. T-wave inversion in 3. Discharge Plan Discharge Clinical Impression: Leukocytosis, Anemia, Episode of heavy vaginal bleeding, Abnormal uterine bleeding, Fibroid uterus Patient Disposition: Still a Patient Condition: Stable
--- NOTE | 2025-05-04 21:08 | PC.NURSE ---
ERP in room to do vaginal exam.
--- OUTSIDE RECORDS SUMMARY | 2025-05-04 21:27 | XMS_ITS | Clinical Summary ---
Author Organization [facility] Address [address] [place] [address] Care Team Providers Care Quality Inspector Name Role Phone Deep Allison MD Primary Care Provider [phone] Source Comments [facility],non-owned Affiliates and Associated Physician Practices is amultiple site organization consisting of ambulatory clinics and hospital sitesin [place], [place], [place] and [place]. This disclosure is being madepursuant to the Care Everywhere program and may not contain all information available regarding this patient. Last updated 18.[facility] Allergies Active Allergy Reactions Criticality Noted Date Comments Amoxicillin Other,Rash Medium 1987 Sulfa Antibiotics Itching,Rash,Skin Reactions,Swelling Medium 06/07/2024 Medications * Be aware that medications may not be up to date on this document. Alwaysverify current medications with the patient. vitamin D, ergocalciferol, (Drisdol) 1.25 MG (21471 UT) capsule Take 1 (one) capsule by [...] Description 03/17/2025 11:00 AM CDT Office Visit [facility] - SUSTAINABILITY ANALYST [address] [place] [address] Adryan Bosch MD Ovarian tumor of borderline malignancy, right (Primary Dx) 03/17/2025 10:15 AM CDT Procedure visit [facility] - SUSTAINABILITY ANALYST [address] [place] [address] Left ovarian cyst ; Ovarian tumor of borderline malignancy, right 03/17/2025 Travel 02/17/2025 10:20 AM CDT Office Visit [facility] - Rheumatology [address], [address] [place] [address] Ken Anders, DO Primary osteoarthritis of both hands (Primary Dx) 02/17/2025 Orders Only [facility] - Rheumatology [address], [address] [place] [id number] Ken Anders, DO Bilateral finger arthralgia from [...] Recorded Patient Health Questionnaire-2 Score 4 03/14/2025 [facility] - Occupational [...] place to sleep or slept in a chcf (including now)? No 05/14/2024 Comments No Sex [...] Bilateral simple ovarian cysts Coding ====== Procedures 75384: US Transvaginal Non [facility] PACS Anatomical Region Laterality Modality Other 03/17/2025 10:1 4 AM CDT Adryan Bosch MD [facility] ORDERABLES Edited Result - Final from Last [address] [place] [address] Advance Directives * Full Code (Latest Code Status on File) Date Activated Date Inactivated Comments 05/14/2024 7:40 AM 05/16/2024 12:22 PM Care Teams Quality Inspector Relationship Specialty Start Date End Date Deep Allison MD [address] [place] [address] PCP - General Internal Medicine 04/08/24
--- OUTSIDE RECORDS SUMMARY | 2025-05-04 21:27 | XMS_ITS | Clinical Summary ---
Author Organization [facility] Medical Office Building [address] [place] [address] Care Team Providers Care Systematic Theology Professor Name Role Phone Deep Allison MD Primary Care Provider [phone] Javy Zhong MD Unavailable [phone] Allergies Active Allergy Reactions Criticality Noted [...] 11/01/2020 Influenza Vaccine (#1) 2025 08/15/2018 Insurance [facility] CHO[facility] PLUS Member Subscriber Plan / Payer (Ef fective 2023-Present) Name:Chelo Randhawa Relation to Subscriber:Self Name:Chelo Randhawa Payer ID:[id number] (NAIC) Type:[facility] HMO/PPO Address: [place] [id number] [place] [id number] [facility] CHOICE PLUS Care Teams Systematic Theology Professor Relationship Specialty Start Date End Date Deep Allison MD PCP - General Internal Medicine 06/13/22 Javy Zhong MD [address] [place] [address] Referring Physician Obstetrics and Gynecology 08/09/22
--- OUTSIDE RECORDS SUMMARY | 2025-05-04 21:27 | XMS_ITS | Referral Summary ---
Author Organization [facility] Medical Office Building [address] Address [address] [place] [address] Care Team Providers Care Junior Marketing Associate Name Role Phone Deep Allison MD Primary Care Provider [phone] Javy Zhong MD Unavailable [phone] Allergies Active Allergy Reactions Criticality Noted [...] Plan of Treatment Not on file Insurance [facility] CHO[facility] Care Teams Junior Marketing Associate Relationship Specialty Start Date End Date Deep Allison MD PCP - General Internal Medicine 06/13/22 Javy Zhong MD [address] [place] [address] Referring Physician Obstetrics and Gynecology 08/09/22
[2025-05-04 21:29] LABS: BEDSIDEPREGUCG Negative (Negative)
[2025-05-04 21:30] VITALS: BP 133/89; PULSE 124; RESP 18; TEMP 36.6; O2SAT 98
[2025-05-04 21:41] LABS: Need Manual Microscopic Reviewed; Non Pathogenic Casts 0-2
[2025-05-04 21:43] LABS: Add Urine Microscopic? YES; Appearance Urine Turbid (Clear); Glucose Urine UA Negative (Negative); Leukocyte Esterase Ur 2+ LEU/UL (Negative); Nitrate Urine Positive (Negative); Specific Grav Ur 1.031 (1.001-1.035)
[2025-05-04 22:38] LABS: Trichomonas Vag PCR NOT DETECTED (NOT DETECTE)
[2025-05-04 23:45] LABS: Thyroid Stimulating Hormone 3.470 uIU/mL (0.465-4.680)
[2025-05-05] VITALS (7 sets, daily range): BP systolic 101–117; BP diastolic 54–81; PULSE 91–111; RESP 18–20; TEMP 36.3–37.1; O2SAT 96–100; BMI 32.9
[2025-05-05 00:47] LABS: Hematocrit 29.1 % (37.0-47.0); Hemoglobin 9.6 g/dL (12.0-15.0)
--- NOTE | 2025-05-05 01:06 | PC.NURSE ---
pt ambulatory with steady gait to restroom
[2025-05-05] MEDS: TRANEXAMIC ACID 1,000 MG/10 ML AMPUL 1300 MG IV PUSH (01:13)
--- NOTE | 2025-05-05 02:01 | ADMGEN ---
This patient, Chelo Randhawa, was admitted to Medical Room 253-01. Patient/family oriented to hospital policies and general routines including ID bracelet, bed and alarms, visiting hours, pain management, procedures, bathroom and other care routines, personal items, smoking policy, room service/diet, and visiting hours. Information on how to activate the Rapid Response Team has been discussed. Patient/Family are encouraged to report perceived risks to care and to ask questions if they do not understand what they are told or what they should do.
[2025-05-05 04:59] LABS: Hematocrit 27.2 % (37.0-47.0); Hemoglobin 8.7 g/dL (12.0-15.0); Immature Granulocyte Percent A 0.7 % (0-0.5); Lymphocytes Absolute Auto 2.42 K/mm3 (0.9-3.2); Mean Corpuscular HGB Conc 32.0 g/dl (32-36); Mean Corpuscular Hemoglobin 27.3 pg (26-34); Mean Corpuscular Volume 85.3 fl (80-100); Nucleated Red Blood Cells Absolute Auto 0.000 K/mm3 (0.0-0.012); Nucleated Red Blood Cells Perc 0.0 % (0.0-0.2); Platelet Count Result 228 k/mm3 (150-375); Red Blood Count 3.19 M/mm3 (4.2-5.4); White Blood Count 10.7 K/mm3 (4.5-10.0)
--- NOTE | 2025-05-05 05:57 | PC.NURSE ---
At this time, pt has only disposed of 1 tampon with a blood clot noted. Blood clot is the size of the length of a palm.
--- NOTE | 2025-05-05 14:10 | P.HP_ITS ---
H&P: HPI History of Present Illness Date/Time: 05/05/25 14:10 Chief Complaint: heavy bleeding Narrative: Patient is 39 year old female who presents with 12 days of heavy bleeding. She recently started Slynd and started bleeding during her third week of pills. She reports soaking a pad and tampon within 1 hour with large clots. She had some dizziness and lightheadedness. She has not had periods similar to this in the past. She does have a history of PCOS. While in the ER, she was found to be anemic and pelvic US demonstrated multiple fibroids. Pelvic exam per ER physician showed normal cervix with slow continued bleeding. She was given IV TXA and admitted for further management. Overnight, she reports improvement in her bleeding. She has had a pad on throughout the day and had mild to moderate bleeding. Some small clots. Did not feel much dizziness or lightheadedness during the day. She was feeling ready for discharge however this afternoon bled through two tampons in 1 hour. Review of Systems Review of Systems: All systems reviewed & are unremarkable except as noted in HPI and below PMFSH Past Medical History Medical History Uterine polyp Fibroid uterus PCOS (polycystic ovarian syndrome) Depression Anxiety Bipolar disorder Diabetes type 2, controlled GERD (gastroesophageal reflux disease) Elevated liver enzymes Diarrhea Epigastric pain Family History Family History Other Cervical cancer Lung cancer Grandparent Diabetes mellitus Heart failure Grandparent Diabetes mellitus Mother Diabetes mellitus Father DVT (deep venous thrombosis) Social History Social History Smoking status: Never smoker Alcohol intake: current Drinks per week: 2 Alcohol use details: RARE Substance use: current Substance use type: marijuana Other substance usage details: THC gummies Lack of Transportation: No Lack of Food: Never True Current Housing: I Have Housing Concerned About Future Housing: No Difficulty Paying Gas/Electric Bills: No Difficulty Paying for Meds: No Currently Unemployed: No Education: High School Diploma/GED Difficulty w/ Childcare or Family Care: No Living arrangements: with family Gender identity (if verbalized by the patient): Female Sexual Orientation (if Verbalized by the Patient): Straight or Heterosexual Spiritual care concerns: No Meds Home Medications and Allergies Home Medications ?Medication ?Instructions ?Recorded ?Confirmed ?Type lamotrigine 100 mg tablet 150 mg PO BID 07/11/22 05/05/25 History omeprazole 40 mg capsule,delayed 40 mg PO DAILY 05/06/24 05/05/25 History release valbenazine 80 mg capsule 80 mg PO HS 09/16/24 05/05/25 History (Ingrezza) ferrous sulfate 325 mg (65 mg 325 mg PO BID #180 tabs 02/18/25 05/05/25 Rx iron) tablet metformin 1,000 mg tablet See Rx Instructions .Route 03/01/25 05/05/25 Rx .COMPLEX #180 tabs linagliptin 5 mg tablet (Tradjenta) 5 mg PO QAM #90 tabs 04/07/25 05/05/25 Rx meloxicam 7.5 mg tablet 7.5 mg PO DAILY PRN pain 04/07/25 05/05/25 History atomoxetine 40 mg capsule 40 mg PO DAILY 05/05/25 05/05/25 History ergocalciferol (vitamin D2) 1,250 1,250 mcg PO WEEKLY 05/05/25 05/05/25 History mcg (50,000 unit) capsule Allergies Allergy/AdvReac Type Severity Reaction Status Date / Time amoxicillin Allergy Intermediate HIVES Verified 04/07/25 14:07 Sulfa (Sulfonamide Allergy Hives Verified 04/07/25 14:07 Antibiotics) Vital Signs Vital Signs - 24 hr 05/04/25 20:05 05/04/25 21:30 05/05/25 01:17 Temperature 97.3 F L 97.8 F 98.4 F Pulse Rate 144 H 124 H 111 H Respiratory Rate 20 18 18 Blood Pressure 151/101 H 133/89 117/81 Pulse Oximetry 100 98 97 Oxygen Delivery Room Air 05/05/25 01:53 05/05/25 02:06 05/05/25 02:30 Temperature 98.0 F Pulse Rate 95 97 Respiratory Rate 18 20 Blood Pressure 101/67 115/78 Pulse Oximetry 98 99 Oxygen Delivery Room Air 05/05/25 04:08 05/05/25 08:35 05/05/25 08:43 Temperature 98.5 F Pulse Rate 97 Respiratory Rate 20 Blood Pressure 111/60 Pulse Oximetry 100 97 Oxygen Delivery Room Air Room Air Exam Const: General: comfortable and no acute distress Eyes: General: appearance normal, both eyes and all related structures Resp: Effort & Inspection: normal respiratory effort Cardio: Rate: regular rate H&P: Results Labs Labs: Short CBC 05/04/25 05/05/25 05/05/25 Range/Units 20:33 00:38 04:49 WBC 11.9 H 10.7 H (4.5-10.0) K/mm3 Hgb 11.2 L 9.6 L 8.7 L (12.0-15.0) g/dL Hct 33.4 L 29.1 L 27.2 L (37.0-47.0) % Plt Count 291 228 (150-375) k/mm3 BMP 05/04/25 20:33 Sodium 134 L Potassium 3.8 Chloride 103 Carbon Dioxide 20 L BUN 13 Creatinine 0.72 Glucose 168 H Calcium 9.0 Liver Function 05/04/25 Range/Units 20:33 Total Bilirubin 0.3 (0.2-1.3) mg/dL AST 48 H (14-36) U/L ALT 51 H (6-35) U/L Alkaline Phosphatase 96 (38-126) U/L Albumin 4.6 (3.5-5.1) g/dL Urine 05/04/25 Range/Units 21:25 Urine Color Red H (Yellow) Urine Appearance Turbid H (Clear) Urine pH 5.0 (5.0-9.0) Ur Specific [place] 1.031 (1.001-1.035) Urine Protein 3+ H (Negative) mg/dL Urine Glucose (UA) Negative (Negative) mg/dL Assessment and Plan Assessment and plan (1) Acute blood loss anemia: Code(s): D62 - Acute posthemorrhagic anemia Status: Acute Assessment and Plan: - Hgb 11.2 > 9.6 > 8.7 - mild dizziness and lightheadedness - IV Venofer ordered (2) Abnormal uterine bleeding: Code(s): N93.9 - Abnormal uterine and vaginal bleeding, unspecified Status: Acute Assessment and Plan: - likely 2/2 adverse reaction to Slynd - hx of irregular but normal flow periods 2/2 PCOS - bleeding started 12 days ago and has continued to be heavy - will switch to OCP on discharge - s/p IV TXA, continue PO TXA while inpatient - given increased bleeding, will start IV estrogen; antiemetics ordered - if bleeding stable overnight, ok to d/c in AM
[2025-05-05] MEDS: ESTROGENS, CONJUGATED 25 MG/5 ML VIAL IV PUSH (15:58)
[2025-05-05] MEDS: IBUPROFEN 600 MG TABLET PO (15:58)
[2025-05-05] MEDS: IRON SUCROSE COMPLEX 200 MG in SODIUM CHLORIDE 0.9% IV 100 ML 220 MG IVPB (15:59)
[2025-05-05] MEDS: lamoTRIgine 50 MG TABLET 150 MG PO (16:17)
[2025-05-05] MEDS: ONDANSETRON INJ 4 MG/2 ML VIAL IV PUSH (20:29)
[2025-05-06 05:19] LABS: Hematocrit 25.8 % (37.0-47.0); Hemoglobin 8.5 g/dL (12.0-15.0); Immature Granulocyte Percent A 1.3 % (0-0.5); Lymphocytes Absolute Auto 2.43 K/mm3 (0.9-3.2); Mean Corpuscular HGB Conc 32.9 g/dl (32-36); Mean Corpuscular Hemoglobin 27.6 pg (26-34); Mean Corpuscular Volume 83.8 fl (80-100); Nucleated Red Blood Cells Absolute Auto 0.000 K/mm3 (0.0-0.012); Nucleated Red Blood Cells Perc 0.0 % (0.0-0.2); Platelet Count Result 242 k/mm3 (150-375); Red Blood Count 3.08 M/mm3 (4.2-5.4); White Blood Count 10.4 K/mm3 (4.5-10.0)
[2025-05-06 06:00] VITALS: BP 114/65; PULSE 88; RESP 18; TEMP 36.4; O2SAT 97
--- NOTE | 2025-05-06 06:05 | PC.NURSE ---
Pt discarded of 4 pads this shift. Moderate bleeding noted on pads but no clots noted on pads, however, per pt this morning, still has passed large clots when voiding.
[2025-05-06] MEDS: lamoTRIgine 50 MG TABLET 150 MG PO ×2 (08:54→17:25)
--- NOTE | 2025-05-06 11:49 | PM.GYNPNOP ---
[employer] - A/P Assessment and plan (1) Menorrhagia: Code(s): N92.0 - Excessive and frequent menstruation with regular cycle Status: Acute Assessment and Plan: vaginal bleeding has diminished but continues. Patient has now bled for 13 days consecutively. Patient has history of severe menorrhagia. Discussed treatment options with the patient. Options are limited due to her type 2 diabetes. We discussed endometrial ablation in detail. We discussed laparoscopic salpingectomy. We agreed to move forward endometrial ablation with hysteroscopy D&C and laparoscopic bilateral salpingectomy. She understands risks, benefits, and alternatives. She has completed informed consent process and is ready to proceed Time Spent With Patient Time: Total time spent is greater than 50% in coordination of care (as documented) at patient's floor/unit and/or counseling patient: Time with patient: 15 - 25 minutes [employer]- PN:Cira Post-Op Subjective Date/time seen: 05/06/25 11:49 vaginal bleeding has diminished but continues. Patient has now bled for 13 days consecutively. Patient has history of severe menorrhagia. Discussed treatment options with the patient. Options are limited due to her type 2 diabetes. We discussed endometrial ablation in detail. We discussed laparoscopic salpingectomy. We agreed to move forward endometrial ablation with hysteroscopy D&C and laparoscopic bilateral salpingectomy. She understands risks, benefits, and alternatives. She has completed informed consent process and is ready to proceed Exam Const: General: cooperative, healthy appearing, comfortable and no acute distress Orientation/consciousness: oriented to person, oriented to place and oriented to time Resp: Auscultation: clear to auscultation bilaterally, no crackles, no rales, no rhonchi and no wheezes Cardio: Rate: regular rate Rhythm: regular rhythm Heart sounds: no click, no murmurs and no rubs GI: GI Palp: No abdominal tenderness, No Soft to palpation, No Tenderness to palpation present (GI) and No Palpable mass present Auscultation: normal bowel sounds Extrem: General: normal to inspection, no joint enlargement, no clubbing, cyanosis or edema, no pedal edema and no calf tenderness [employer] - PN: Obj Data Vital Signs Vital Signs: Vital Signs - 24 hr 05/05/25 14:00 05/05/25 20:18 05/05/25 22:00 Temperature 98.8 F 97.4 F L Pulse Rate 97 91 Respiratory Rate 18 18 Blood Pressure 110/60 110/54 L Pulse Oximetry 98 96 Oxygen Delivery Room Air 05/06/25 06:00 05/06/25 08:55 Temperature 97.6 F Pulse Rate 88 Respiratory Rate 18 Blood Pressure 114/65 Pulse Oximetry 97 Oxygen Delivery Room Air Intake/Output Intake/Output: Intake & Output 05/03/25 05/04/25 05/05/25 05/06/25 23:59 23:59 23:59 23:59 Intake Total 1000 2040 120 Balance 1000 2040 120 Meds/Results Medications: Active Medications Generic Name Dose Route Start Last Admin Trade Name Freq PRN Reason Stop Dose Admin Acetaminophen 650 mg 05/05/25 01:06 Acetaminophen 325 Mg Tablet PO Q4H PRN Mild Pain (1-3) or Fever Acetaminophen 650 mg 05/05/25 15:08 Acetaminophen 325 Mg Tablet PO Q6H PRN Mild Pain (1-3) or Fever Ibuprofen 600 mg 05/05/25 15:08 05/05/25 15:58 Ibuprofen 600 Mg Tablet PO 600 mg Q6H PRN Administration Cramping Lamotrigine 150 mg 05/05/25 17:00 05/06/25 08:54 Lamotrigine 50 Mg Tablet PO 150 mg BID ISMAEL Administration Metformin HCl 500 mg 05/05/25 17:00 05/06/25 08:54 Metformin Hcl 500 Mg Tablet PO 500 mg BID ISMAEL Administration Metoclopramide HCl 10 mg 05/05/25 15:08 Metoclopramide Hcl Inj 10 Mg/2 Ml Vial IV PUSH Q6HR PRN Nausea And Vomiting Tranexamic Acid 2 each 05/05/25 09:00 05/06/25 08:54 650mg Tablet PO 06/04/25 08:59 2 each TID ISMAEL Administration Ondansetron HCl 4 mg 05/05/25 01:06 05/05/25 20:29 Ondansetron Inj 4 Mg/2 Ml Vial IV PUSH 4 mg Q4H PRN Administration Nausea Ondansetron HCl 4 mg 05/05/25 15:08 Ondansetron Inj 4 Mg/2 Ml Vial IV PUSH Q4H PRN Nausea And Vomiting Sitagliptin Phosphate 100 mg 05/06/25 09:00 05/06/25 08:54 Sitagliptin Phosphate 100 Mg Tablet PO 100 mg QAM ISMAEL Administration Radiology Results: ITS Impressions Pelvis Ultrasound 05/04/25 23:00 IMPRESSION: Fibroid uterus. Otherwise, unremarkable sonographic evaluation of the female pelvis, as detailed above. Labs 05/06/25 05:11 05/04/25 20:33 Labs: Laboratory Results - last 24 hr 05/04/25 05/06/25 20:32 05:11 WBC 10.4 H RBC 3.08 L Hgb 8.5 L Hct 25.8 L MCV 83.8 MCH 27.6 MCHC 32.9 RDW 12.8 Plt Count 242 MPV 9.5 Immature Gran % (Auto) 1.3 H Neut % (Auto) 67.9 Lymph % (Auto) 23.4 [place] % (Auto) 6.4 Eos % (Auto) 0.7 Baso % (Auto) 0.3 Lymph # (Auto) 2.43 [place] # (Auto) 0.7 H Eos # (Auto) 0.1 Baso # (Auto) 0.0 Abs Immat Gran (auto) 0.13 H Absolute Neuts (auto) 7.1 H Absolute Nucleated RBC 0.000 Nucleated RBC % 0.0 Prolactin 32.5
[2025-05-06 14:00] VITALS: BP 130/20; PULSE 100; RESP 17; TEMP 36.4; O2SAT 99
[2025-05-06] MEDS: IBUPROFEN 600 MG TABLET PO (15:08)
[2025-05-06 16:30] VITALS: BP 135/50; PULSE 84; RESP 14; TEMP 37.2; O2SAT 98
[2025-05-06] MEDS: ACETAMINOPHEN 325 MG TABLET 650 MG PO (17:28)
[2025-05-06 20:34] VITALS: BP 115/68; PULSE 93; RESP 16; TEMP 36.4; O2SAT 98
[2025-05-07] VITALS (10 sets, daily range): BP systolic 105–132; BP diastolic 59–84; PULSE 84–102; RESP 14–18; TEMP 36.4–37.1; O2SAT 91–100
[2025-05-07] MEDS: lamoTRIgine 50 MG TABLET 150 MG PO ×2 (08:45→17:22)
--- NOTE | 2025-05-07 12:50 | P.PNAN_ITS ---
Anes - Initial Pre Proc Eval Procedure: Operation Date: 05/07/25 13:00 Proposed Procedures p Bilateral Laparoscopic Salpingectomy, - Javy Zhong MD s Hysteroscopy Dilation and Curettage with Mackenzie Endometrial Ablation - Javy Zhong MD Date/Time: 05/07/25 12:50 Surgeon: Ministerio Huang MD Pre Op Diagnosis: heavy vaginal bleeding, anemia Patient Data Age: 39 Gender: F Height: 1.73 m Weight: 98.2 kg Last Vital Signs Temp 36.4 C L 05/07/25 05:39 Pulse 86 05/07/25 05:39 Resp 16 05/07/25 05:39 BP 105/59 L 05/07/25 05:39 Pulse Ox 96 05/07/25 05:39 O2 Del Method Room Air 05/07/25 08:00 Allergies Allergy/AdvReac Type Severity Reaction Status Date / Time amoxicillin Allergy Intermediate HIVES Verified 05/07/25 12:34 Sulfa (Sulfonamide Allergy Hives Verified 05/07/25 12:34 Antibiotics) Home Medications ?Medication ?Instructions ?Recorded ?Confirmed ?Type lamotrigine 100 mg tablet 150 mg PO BID 07/11/22 05/05/25 History omeprazole 40 mg capsule,delayed 40 mg PO DAILY 05/06/24 05/05/25 History release valbenazine 80 mg capsule 80 mg PO HS 09/16/24 05/05/25 History (Ingrezza) ferrous sulfate 325 mg (65 mg 325 mg PO BID #180 tabs 02/18/25 05/05/25 Rx iron) tablet metformin 1,000 mg tablet See Rx Instructions .Route 03/01/25 05/05/25 Rx .COMPLEX #180 tabs linagliptin 5 mg tablet (Tradjenta) 5 mg PO QAM #90 tabs 04/07/25 05/05/25 Rx meloxicam 7.5 mg tablet 7.5 mg PO DAILY PRN pain 04/07/25 05/05/25 History atomoxetine 40 mg capsule 40 mg PO DAILY 05/05/25 05/05/25 History ergocalciferol (vitamin D2) 1,250 1,250 mcg PO WEEKLY 05/05/25 05/05/25 History mcg (50,000 unit) capsule Laboratory Tests 05/07/25 05:37 POC Capillary Glucose 106 H mg/dl (65-105) Patient hx anesthesia problems: none Family hx anesthesia problems: none Results Review: All pre-operative results and documents have been reviewed as part of the pre- operative evaluation. [facility] Past Medical History Medical History Uterine polyp Fibroid uterus PCOS (polycystic ovarian syndrome) Depression Anxiety Bipolar disorder Diabetes type 2, controlled GERD (gastroesophageal reflux disease) Elevated liver enzymes Diarrhea Epigastric pain Family History Family History Other Cervical cancer Lung cancer Grandparent Diabetes mellitus Heart failure Grandparent Diabetes mellitus Mother Diabetes mellitus Father DVT (deep venous thrombosis) Social History Social History Smoking status: Never smoker Alcohol intake: current Drinks per week: 2 Alcohol use details: RARE Substance use: current Substance use type: marijuana Other substance usage details: THC gummies Lack of Transportation: No Lack of Food: Never True Current Housing: I Have Housing Concerned About Future Housing: No Difficulty Paying Gas/Electric Bills: No Difficulty Paying for Meds: No Currently Unemployed: No Education: High School Diploma/GED Difficulty w/ Childcare or Family Care: No Living arrangements: with family Gender identity (if verbalized by the patient): Female Sexual Orientation (if Verbalized by the Patient): Straight or Heterosexual Spiritual care concerns: No Anes - Eval Final PreProcedure Day of Procedure 05/07/25 12:50 Patient weight: obese Heart: regular rate and rhythm Lungs: clear to auscultation Airway: Mallampati scale class II Neurological: alert and oriented Last oral intake: >/= 8 hours ASA classification: III Emergent: no Anesthetic plan: proceed Anesthesia type and monitoring: general ETT and standard monitoring Results Review: All pre-operative results and documents have been reviewed as part of the pre- operative evaluation. Informed Consent: The patient's anesthetic plan and its attendant risks and benefits were discussed with the patient/family/POA. Questions were solicited and answers provided to the satisfaction of the patient/family/POA.
--- NOTE | 2025-05-07 13:10 | WPDHPUPDATE1 ---
History and Physical Update Update Date/Time: 05/07/25 13:10 39-year-old female with severe menorrhagia and abnormal uterine bleeding. We have agreed to perform laparoscopic bilateral salpingectomy and endometrial ablation with hysteroscopy D&C. She understands risks, benefits, and alternatives. She has completed the informed consent process and is ready to proceed. History and Physical has been reviewed, including an updated exam of the patient. There are NO changes in the patient's condition. Risks, benefits, and alternatives have been discussed and questions answered. Patient agrees to proceed with procedure.
--- NOTE | 2025-05-07 13:59 | S_PTH ---
PATIENT: Chelo Randhawa LOC: [id number] U#:[id number] AGE/SX: 39/F ROOM: 253 RE05/05/[address]: Javy Zhong MD : 1985 BED: 01 DIS: 05/07/2025 SPEC #: [id number] RECD: 05/10/25 07:34 STATUS: PAT REQ #: [id number] GILBERT: 05/07/25 13:[address]: Javy Zhong DEPT: [facility] Surgical RECD BY: Hortencia Loja ENTERED: 05/10/25 07:35 SP TYPE: Surgical OTHR DR: Deep Allison, MD Ministerio Huang MD Tissues: A - Fallopian Tube Bilateral B - Endometrial Bx Procedures: Gross and Microscopic Level 2 Hematoxylin and Eosin Stain Gross and Microscopic Level 4
[2025-05-07] MEDS: LACTATED RINGERS 1,000 ML 30 ML IV CONT ×2 (14:18→14:19)
--- NOTE | 2025-05-07 14:23 | P.OP_ITS ---
Procedure Note - Detailed Date of Procedure 05/07/25 Pre-op Diagnosis heavy vaginal bleeding, anemia Post-op Diagnosis Same Procedure Performed Laparoscopic bilateral salpingectomy with endometrial ablation and hysteroscopy. Surgeon Javy Zhong MD Anesthesia General Indications Menorrhagia, female sterilization Findings Hemoperitoneum, normal-appearing fallopian tubes and bilateral ovaries, enlarged, mildly, uterus. Normal: Vulva, vagina, cervix, endometrium Description of Procedure Patient was taken the operating room. She has prepped draped in the dorsal lithotomy position after induction of general anesthesia. A 5 mm abdominal incision was made in left upper quadrant of the abdomen with scalpel. A 5 mm trocars inserted the intra-abdominal cavity under direct visualization of the scope. Pneumoperitoneum was achieved. A 5 mm periumbilical incision was made using a scalpel on the abdominal scan. A 5 mm trocar was inserted the intra- abdominal cavity under visualization of the scope. A 5 mm incision made left lower quadrant of the abdomen. A 5 mm trocar was inserted the intra-abdominal cavity and direct visualization of the scope. The bilateral fallopian tubes were removed. The paratubal tissue in the area of the uterus was grasped with the LigaSure cautery and transected after being cauterized. The paratubal tissue from the ovary to the uterine cornu was cauterized and transected with LigaSure cautery. This was all done in a bilateral fashion. The tube was transected at the area of the uterine cornua and the tubes was removed through the 5 mm trocar site. The pneumoperitoneum was reduced. The trocars were removed. The skin was closed with subcuticular 4 Monocryl and covered with Dermabond. Our attention was then turned to the endometrial ablation portion of the procedure. A speculum was placed in the vagina. The cervix was grasped with a tenaculum. The cervix was dilated to approximately 8 mm with Terrazas dilators. The hysteroscope was inserted. And the below findings were noted. All of the intrauterine surfaces were curettaged with a medium-size curette and the specimens were collected. Measurements of the cervix were taken using the uterine sound and the hysteroscope. The intrauterine cavity measurements were entered into the handpiece. The device was inserted into the intrauterine cavity and the array was expanded. The balloon cuff was inflated. When an adequate seal was formed the safety and energy cycles were initiated and completed. The array was collapsed, the balloon was deflated. The insert was withdrawn. The hysteroscope was reinserted and a well desiccated intrauterine cavity was observed. The patient was taken recovery room stable condition. Sponge lap and needle counts were correct x2. She tolerated the procedure well. Pathology Yes Complications No immediate complications Condition Stable Disposition PACU
[2025-05-07] MEDS: ALBUTEROL SULFATE NEB 2.5 MG/3 ML INH INHALATION (14:47)
[2025-05-07] MEDS: fentaNYL CITRATE INJ (*CRX) 100 MCG/2 ML VIAL 25 MCG IV PUSH ×4 (15:26→16:07)
[2025-05-07] MEDS: FERROUS SULFATE 325 MG TABLET DR BY MOUTH (16:46)
[2025-05-07] MEDS: oxyCODONE/ACETAMINOPHEN (*CRX) 5-325 MG TABLET 1 TABLET PO (16:46)
--- NOTE | 2025-05-30 16:42 | P.DS_ITS ---
DS: Admitting Diagnosis Discharge Date 05/07/25 Admitting Diagnosis Menorrhagia DS: Discharge Diagnosis Discharge Diagnosis (1) Menorrhagia: Code(s): N92.0 - Excessive and frequent menstruation with regular cycle Status: Acute (2) Fibroid uterus: Code(s): D25.9 - Leiomyoma of uterus, unspecified Status: Acute DS: Summary Hospital Course Hospital Course: 39-year-old female admitted for heavy vaginal bleeding. She was initially treated medically. After failure of medical treatment she was treated with endometrial ablation and this resolved her bleeding. She was discharged home shortly after. Time Spent with Patient Time attestation: Total time spent providing and/or coordinating discharge services: DS: Data Data Completed and Pending Completed studies during hospitalization: Pending at discharge 05/07/25 13:59 Surgical [PTH] Routine Surgical [PTH] Routine Discharge Plan Discharge Attending physician on discharge: Ministerio Huang Consulting providers: Malcolm Rincon; Jonnie Vega; Radha,Vanessa Alonso Discharging Clinician: Ministerio Huang Patient Disposition: Home Activity: may shower and as tolerated Diet: as tolerated Discharge Instructions: No intercourse or soaking in tub/pool for a few weeks until cleared by Dr. Zhong Return to ER if you develop fever, shortness of breath, or begin heavy bleeding (saturating 1 pad/hour) Call office for apointment in one week Patient Instructions: Antibiotic Form Patient Language: Estonian Stand Alone Forms: General Discharge Information, Work/School Release IP Follow-up/Referrals: Javy Zhong MD [Physician, [employer]] - 1 Week Discharge Medications: Continued meloxicam 7.5 mg tablet 7.5 mg PO DAILY PRN (Reason: pain) Tradjenta 5 mg tablet 5 mg PO QAM Qty: 90 2RF omeprazole 40 mg capsule,delayed release(DR/EC) 40 mg PO DAILY Ingrezza 80 mg capsule 80 mg PO HS atomoxetine 40 mg capsule 40 mg PO DAILY ergocalciferol (vitamin D2) 1,250 mcg (50,000 unit) capsule 1,250 mcg PO WEEKLY Rx Instructions: TAKES ON WED lamotrigine 100 mg tablet 150 mg PO BID ferrous sulfate 325 mg (65 mg iron) tablet 325 mg PO BID Qty: 180 1RF metformin 1,000 mg tablet See Rx Instructions .ROUTE .COMPLEX Qty: 180 1RF Dose Instruction: TAKE 1 TABLET BY MOUTH TWICE DAILY Rx Instructions: TAKE 1 TABLET BY MOUTH TWICE DAILY Date of admission: 05/05/25 01:06 Primary Care Provider: Estefany,Deep Shah Admitting Provider: Ministerio Huang Attending physician on admission: Javy Zhong Condition: Stable
== END 2025-05-07 17:30 | disposition home or self-care (01) ==
LOC: ANHED 21:25 → ANH2MED 05-05 01:58
PROVIDERS: Admitting Provider Obstetrics & Gynecology; Emergency Provider Student in an Organized Health Care Education/Training Program; PCP Internal Medicine; Visit Provider Obstetrics & Gynecology
PROC: (CPT 49320; principal; 2025-05-07 13:00)
PROC: 0U5B8ZZ Destruction of Endometrium, Via Natural or Artificial Opening Endoscopic (ICD-10-PCS; CPT 58563; 2025-05-07 13:00)
DX: N92.0 Excessive and frequent menstruation with regular cycle (principal); D62 Acute posthemorrhagic anemia; D72.829 Elevated white blood cell count, unspecified; N83.8 Other noninflammatory disorders of ovary, fallopian tube and broad ligament; D25.9 Leiomyoma of uterus, unspecified; Q50.5 Embryonic cyst of broad ligament; E28.2 Polycystic ovarian syndrome; E11.9 Type 2 diabetes mellitus without complications; K21.9 Gastro-esophageal reflux disease without esophagitis; F12.90 Cannabis use, unspecified, uncomplicated; Z79.84 Long term (current) use of oral hypoglycemic drugs; E66.9 Obesity, unspecified; Z68.32 Body mass index [BMI] 32.0-32.9, adult; F41.8 Other specified anxiety disorders
CPT/HCPCS: 58563; 58661; 36415; 76856; 80053; 81001; 81025; 82948; 84146; 84443; 85014; 85018; 85025; 85610; 85730; 86850; 86900; 86901; 87086; 87491; 87591; 87661; 88302; 88305; 93005; 94640; 96361; 96365; 96375; 99285; A9270; G0378; J1100; J1410; J1756; J2003; J2250; J2405; J2704; J3010; J7030; J7120